=== PATIENT | female | born 1995 ===

== ENCOUNTER 2020-07-15 10:56 | Outpatient (REF) | payer OTHER, SELFPAY ==
[2020-07-15 11:55] LABS: MANUAL DIFF FLAG NO
[2020-07-15 12:11] LABS: Basophils Percent Auto 0.3 % (0-2); Eosinophils Absolute Auto 0.1 X10*3/uL (0.0-0.4); Eosinophils Percent Auto 1.4 % (0-4); Hematocrit 39.8 % (37-47); Imm Gran Abs Auto 0.05 X10*3/uL (0.00-0.03); Imm Gran Pct Auto 0.6 % (0.0-0.4); Lymphocytes Absolute Auto 1.8 X10*3/uL (1.2-4.9); Lymphocytes Percent Auto 22.8 % (20-40); Mean Corpuscular HGB Conc 32.7 g/dl (31.0-35.0); Mean Corpuscular Hemoglobin 30.2 pg (27.0-33.0); Mean Corpuscular Volume 92.6 fL (80-98); Mean Platelet Volume 10.3 fL (9.4-12.3); Monocytes Absolute Auto 0.5 X10*3/uL (0.1-1.2); Monocytes Percent Auto 6.3 % (2-11); Neutrophils Absolute Auto 5.4 X10*3/uL (2.0-8.3); Neutrophils Percent Auto 68.6 % (45-73); Platelet Count 289 X10*3/uL (160-400); White Blood Count 7.9 X10*3/uL (4.8-10.8)
[2020-07-15 12:18] LABS: Alanine Aminotransferase 16 U/L (0-31); Albumin Level 4.4 g/dL (3.5-5.0); Alkaline Phosphatase 75 U/L (39-117); Anion Gap 10 (12-20); Aspartate Amino Transferase 17 U/L (5-31); Bilirubin Total 0.4 mg/dL (0.0-1.0); Blood Urea Nitrogen 9 mg/dL (9-16); Calcium 9.3 mg/dL (8.4-10.2); Carbon Dioxide 28 mmol/L (22-29); Chloride 104 mmol/L (96-108); Cholesterol 121 mg/dL; Estimated Glomerular Filt Rate > 60; Glucose Fasting 82 mg/dL (60-99); HDL Cholesterol 35 mg/dL; LDL Cholesterol Calculated 69 mg/dl; Potassium 4.5 mmol/l (3.3-5.1); Sodium 137 mmol/L (135-145); Total Protein 7.5 g/dL (6.5-8.0); Triglycerides 86 mg/dL
[2020-07-15 12:42] LABS: TSH reflex Free T4 1.51 mIU/mL (0.32-4.0); Vitamin D 25-OH Total 9.5 ng/mL (>30)
[2020-07-15 12:52] LABS: Folate 7.5 ng/mL (> or = 4.0); Vitamin B12 208 pg/mL (200-900)
== END 2020-07-15 10:57 | disposition home or self-care (01) ==
LOC: HO.LAB 10:56
PROVIDERS: PCP Internal Medicine; Visit Provider Internal Medicine
DX: R53.82 Chronic fatigue, unspecified (principal); Z82.49 Family history of ischemic heart disease and other diseases of the circulatory system
CPT/HCPCS: 36415; 80053; 80061; 82306; 82607; 82746; 84443; 85025

== ENCOUNTER 2020-10-26 16:44 | Outpatient (REF) | payer OTHER, SELFPAY | END 2020-10-26 16:45 | disposition home or self-care (01) | LOC: HO.LAB 16:44 | PROVIDERS: Visit Provider Nurse Practitioner Family | DX: R30.0 Dysuria (principal) | CPT/HCPCS: 87086 ==

== ENCOUNTER 2020-10-27 11:49 | Outpatient (REF) | payer OTHER, SELFPAY | END 2020-10-27 11:50 | disposition home or self-care (01) | LOC: HO.LAB 11:49 | PROVIDERS: Visit Provider Nurse Practitioner Family | DX: Z13.89 Encounter for screening for other disorder (principal) ==

== ENCOUNTER 2021-11-07 09:50 | Outpatient (REF) | payer OTHER, SELFPAY ==
[2021-11-07 10:10] LABS: MANUAL DIFF FLAG NO
[2021-11-07 10:45] LABS: Basophils Percent Auto 0.3 % (0-2); Eosinophils Absolute Auto 0.1 X10*3/uL (0.0-0.4); Eosinophils Percent Auto 0.9 % (0-4); Hemoglobin 12.7 g/dl (12.0-16.0); Imm Gran Abs Auto 0.06 X10*3/uL (0.00-0.03); Imm Gran Pct Auto 0.7 % (0.0-0.4); Lymphocytes Absolute Auto 1.8 X10*3/uL (1.2-4.9); Lymphocytes Percent Auto 20.6 % (20-40); Mean Corpuscular HGB Conc 32.6 g/dl (31.0-35.0); Mean Corpuscular Hemoglobin 30.2 pg (27.0-33.0); Mean Corpuscular Volume 92.6 fL (80.0-98.0); Monocytes Absolute Auto 0.6 X10*3/uL (0.1-1.2); Monocytes Percent Auto 6.6 % (2-11); Neutrophils Absolute Auto 6.2 x10*3/uL (2.0-8.3); Neutrophils Percent Auto 70.9 % (45-73); Platelet Count 329 X10*3/uL (160-400); Red Blood Count 4.21 X10*6/uL (4.20-5.50); Red Cell Distribution Width 12.5 % (11.0-16.0); White Blood Count 8.7 X10*3/uL (4.8-10.8)
[2021-11-07 11:04] LABS: Alanine Aminotransferase 15 U/L (0-31); Albumin Level 4.4 g/dL (3.5-5.0); Alkaline Phosphatase 85 U/L (39-117); Anion Gap 11 (12-20); Aspartate Amino Transferase 18 U/L (5-31); Bilirubin Total 0.5 mg/dL (0.0-1.0); Blood Urea Nitrogen 11 mg/dL (9-16); Calcium 9.6 mg/dL (8.4-10.2); Carbon Dioxide 25 mmol/L (22-29); Chloride 107 mmol/L (96-108); Cholesterol 147 mg/dL; Estimated Glomerular Filt Rate > 60; Glucose Fasting 87 mg/dL (60-99); HDL Cholesterol 37 mg/dL; LDL Cholesterol Calculated 96 mg/dl; Potassium 4.6 mmol/L (3.3-5.1); Sodium 138 mmol/L (135-145); Total Protein 8.2 g/dL (6.5-8.0); Triglycerides 71 mg/dL
[2021-11-07 11:26] LABS: Thyroid Stimulating Hormone 2.83 uIU/mL (0.32-4.0)
[2021-11-07 11:41] LABS: Folate 13.7 ng/mL (> or = 4.0); Vitamin B12 279 pg/mL (200-900)
[2021-11-11 13:52] LABS: Vitamin D 25-OH, D2 <4 ng/mL; Vitamin D 25-OH, D3 9 ng/mL; Vitamin D 25-OH, Total 9 ng/mL (30-100)
== END 2021-11-07 09:51 | disposition home or self-care (01) ==
LOC: HO.LAB 09:50
PROVIDERS: PCP Internal Medicine; Visit Provider Internal Medicine
DX: Z00.00 Encounter for general adult medical examination without abnormal findings (principal); E55.9 Vitamin D deficiency, unspecified; D64.9 Anemia, unspecified; E53.8 Deficiency of other specified B group vitamins; F41.9 Anxiety disorder, unspecified
CPT/HCPCS: 36415; 80053; 80061; 82306; 82607; 82746; 84443; 85025

== ENCOUNTER 2022-01-19 01:25 | Emergency (ER) | payer OTHER, SELFPAY ==
--- NOTE | ~2022-01-19 | XR_ITS ---
EXAMINATION: XR CHEST CLINICAL INFORMATION: Cough COMPARISON: None TECHNIQUE: Frontal view of the chest was obtained. FINDINGS: The lungs are well expanded. There is no focal consolidation, edema, or effusion. No pneumothorax. The cardiomediastinal silhouette is within normal limits. No acute osseous abnormality. XR/XR chest 1V IMPRESSION: Clear lungs.
[2022-01-19 01:53] VITALS: BP 124/72; PULSE 103; RESP 18; TEMP 36.9; O2SAT 99; BMI 27.4
[2022-01-19 02:21] LABS: COVID-19 Test Positive (Negative); IDNOW Serial# 16C4AD1C
[2022-01-19 02:31] LABS: Influenza A Negative (Negative); Influenza B2 Negative (Negative)
[2022-01-19 03:36] VITALS: BP 125/81; PULSE 101; RESP 18; TEMP 37; O2SAT 99
--- NOTE | 2022-01-19 03:44 | ED.GENADULT ---
HPI - General Adult General Chief complaint: Dyspnea Stated complaint: difficulty breathing, fever, sore throat Time Seen by Provider: 01/19/22 03:42 Source: patient Mode of arrival: ambulatory Limitations: no limitations History of Present Illness HPI narrative: 26 years old female came in for evaluation of coughing. Patient been having cough, generalized body ache, sneezing, subjective low-grade fever for 2 days. Patient declined exposure to sick contact. No chest pain, no shortness of breath. Related Data Previous Rx's Medication Instructions Recorded hydroxyzine HCl 10 mg tablet 10 mg PO TID PRN #20 tab 12/21/21 guaifenesin 100 mg/5 mL oral liquid 200 mg (10 mL) PO Q4H PRN #473 ml 01/19/22 Allergies Allergy/AdvReac Type Severity Reaction Status Date / Time No Known Allergies Allergy Verified 12/21/21 15:17 Review of Systems Review of Systems: All other systems are reviewed and are negative Constitutional: Reports as per HPI and Reports no additional constitutional complaints Eyes: Reports as per HPI and Reports no additional eye complaints Reports system reviewed and no additional complaints, except as documented Cardiovascular: Reports as per HPI and Reports no additional cardiovascular complaints Respiratory: Reports as per HPI and Reports no additional respiratory complaints Gastrointestinal: Reports as per HPI and Reports no additional gastrointestinal complaints Genitourinary: Reports no additional female genitourinary complaints Musculoskeletal: Reports no additional musculoskeletal complaints Skin/Breast: Reports system reviewed and no additional complaints, except as docu Psychiatric: Reports no additional psychiatric complaints Endocrine: Reports no additional endocrine complaints Hematologic/Lymphatic: Reports no additional hematologic/lymphatic complaints Allergic/Immunologic: Reports no additional allergic/immunologic complaints Reports system reviewed and no additional complaints, except as documented and Reports Abnormal speech present [facility] Past Medical History Medical History Anxiety B12 deficiency Hypovitaminosis D Physical exam Family History Family History Father No problems noted. Mother Hypertension Social History Social History Housing: Apartment Patient Tobacco Use Status: Never used Tobacco e-Cigarette/Vaping Use: Never Used Second Hand Smoke Exposure: No Use of substances other than those prescribed or required for medical reasons: No Advance Directives: No Advance Directives Information Provided: No Current occupational status: employed Physical Exam ED Vital Signs: Vital Signs - 24 hr 01/19/22 01:53 01/19/22 03:36 Temperature 98.4 F 98.6 F Pulse Rate 103 H 101 H Respiratory Rate 18 18 Blood Pressure 124/72 125/81 Pulse Oximetry 99 99 BMI result Body Mass Index 27.4 Vital signs have been reviewed as appeared to be correct. Blood pressure normal. Heart rate normal. Respiration rate normal. Temperature normal. Oxygen saturation normal. Appearance: Alert. Oriented X3. No acute distress. Head: Normal external exam. Normocephalic. Atraumatic. No Mercado signs noted. No raccoon eyes noted Eyes: PERRLA. EOMI. Conjunctiva and sclera normal. Eyelids normal. ENT: TM's Normal. Pharynx normal. Uvula midline. Moist mucous membranes. No trismus noted. No drooling noted. No muffled voice noted. Neck: Normal inspection. Neck supple. FROM. No adenopathy. Thyroid Normal. No meningeal signs. No neck mass noted. CVS: Normal heart rate and rhythm. Heart sound normal. No murmurs noted. Pulses normal throughout. Respiratory: No respiratory distress. Painless inspiration. Breath sounds normal. No wheezes/rales/rhonchi noted. Chest nontender. No accessory muscle usage noted or decreased air movement noted. Abdomen: Soft and nontender. Bowel sounds normal in all 4 quadrants. No distention noted. No organomegaly noted. No visible injury noted. Back: No CVA tenderness. Full range of motion noted. Skin: Skin warm and dry. Normal skin color. Normal skin turgor. No rashes/lesions/lacerations noted. Extremities: No lower extremity edema. Extremities exhibit normal range of motion. Extremities nontender. Neuro: Oriented X 3. Cranial nerve exam: II-XII are grossly intact No motor deficit. No sensory deficit. Reflexes normal. Course Course Course Narrative: Assessment and plan. 26-year-old female came in for his flu-like symptoms patient tested positive for COVID-19 infection. Patient is hemodynamically stable, with stable O2 sat. Medical Decision Making Lab Data Lab results reviewed: Yes I reviewed the patient's lab results. Labs: Lab Results 01/19/22 01/19/22 Range/Units 02:03 02:03 COVID-19 (NENO) Positive A (Negative) COVID-19 Clin Com See Note Influenza Type A (TRISH) Negative (Negative) Influenza Type B (TRISH) Negative (Negative) Influenza A & B Note See Note Imaging Data Chest x-ray: Attestation: I personally reviewed and interpreted this imaging study as follows: Radiologist's impression: No acute pathology. Discharge Plan Discharge Clinical Impression: COVID-19 virus infection Patient Disposition: Home, Self-Care Instructions: Covid-19 Viral Syndrome and Novel Coronavirus (ED) Hey/Ath Additional Instructions: Frequent handwashing, use face mask at all times, keep social distancing, self quarantine at home, take Tylenol or ibuprofen if needed for pain. Prescriptions: New guaifenesin 100 mg/5 mL liquid 200 mg PO Q4H PRN (Reason: cough) Qty: 473 0RF No Action hydroxyzine HCl 10 mg tablet 10 mg PO TID PRN (Reason: anxiety) Qty: 20 0RF Referrals: Elin Bautista MD [Primary Care Provider] - Stand Alone Forms: Work/School Release
[2022-01-19] MEDS: guaiFEN/Codeine SF 200/20/10ML 10 ML LIQUID PO (04:05)
[2022-01-19] MEDS: Acetaminophen 325 MG TABLET 650 MG PO (04:05)
[2022-01-19 04:06] VITALS: BP 112/72; PULSE 106; RESP 16; O2SAT 97
== END 2022-01-19 05:53 | disposition home or self-care (01) ==
PROVIDERS: Emergency Provider Emergency Medicine; PCP Internal Medicine
DX: U07.1 COVID-19 (principal)
CPT/HCPCS: 71045; 87502; 87635; 99283; 99284

== ENCOUNTER 2022-02-06 16:13 | Outpatient (REF) | payer OTHER, SELFPAY | END 2022-02-06 16:14 | disposition home or self-care (01) | LOC: HO.LNP 16:13 | PROVIDERS: Visit Provider Emergency Medicine | DX: J02.9 Acute pharyngitis, unspecified (principal) | CPT/HCPCS: 87071 ==

== ENCOUNTER 2022-02-07 08:12 | Emergency (ER) | payer OTHER, SELFPAY ==
[2022-02-07 08:15] VITALS: BP 120/67; PULSE 90; RESP 18; TEMP 36.6; O2SAT 98; BMI 30.2
[2022-02-07] MEDS: Albuterol Sulfate 90 MCG 8 GM INHALER 2 PUFF INHALE (09:56)
[2022-02-07 09:58] VITALS: PULSE 90; RESP 16; O2SAT 99
[2022-02-07 10:12] LABS: COVID-19 Test Negative (Negative); IDNOW Serial# 08D9AD1C; Strep A Nucleic Acid Negative (Negative)
--- NOTE | 2022-02-07 10:38 | ED.GENADULT ---
HPI - General Adult General Chief complaint: General Medical Stated complaint: Coughing up blood/Bloody nose Time Seen by Provider: 02/07/22 09:12 Source: patient Mode of arrival: ambulatory Limitations: language barrier History of Present Illness HPI narrative: 26-year-old Nepali-speaking female who tested positive for COVID 2 weeks ago presents for continuing cough, intermittent nose bleeds of which she has a history, and continuing cough with congestion. Patient also states she has had a sore throat. Symptoms of sore throat and cough started 3 weeks ago. Patient states when she coughs there are a small amount of blood streaks in her sputum. No blood clots. No chest pain, no shortness of breath, patient has stable vitals. Patient had a nosebleed yesterday and today which was concurrent with the minor amount of blood streak in her sputum. No fevers. Patient states that hurts to swallow but she is able to eat and drink. No sick exposures, no history of asthma. Patient has had no unilateral leg swelling, no recent long trips, no surgery, no trauma Related Data Previous Rx's Medication Instructions Recorded hydroxyzine HCl 10 mg tablet 10 mg PO TID PRN anxiety #20 tabs 12/21/21 guaifenesin 100 mg/5 mL oral liquid 200 mg (10 mL) PO Q4H PRN cough 01/19/22 #473 mL albuterol sulfate 90 mcg/actuation 2 puff inhalation Q4-6H PRN 02/07/22 aerosol inhaler shortness of breath or wheezing #8.5 grams benzonatate 200 mg capsule 200 mg PO TID 5 days #15 caps 02/07/22 dexamethasone 6 mg tablet 6 mg PO DAILY 3 days #3 tabs 02/07/22 Allergies Allergy/AdvReac Type Severity Reaction Status Date / Time No Known Allergies Allergy Verified 02/06/22 12:38 Review of Systems Constitutional: Constitutional: Denies body ache(s), Denies chills, Denies fatigue, Denies fever(s), Denies headache(s), Denies malaise and Denies weakness Eyes: Eyes: Denies diplopia ENT: Denies vertigo, Denies dizziness, Denies otalgia, Denies headache(s), Denies mouth pain, Denies post nasal drip, Denies sinus pain, Denies sinus pressure, Reports sore throat and Denies throat swelling Cardiovascular: Cardiovascular: Denies chest pain, Denies syncope, Denies leg edema, Denies lightheadedness, Denies Loss of Consciousness, Denies palpitations, Denies dyspnea and Denies dyspnea on exertion Respiratory: Respiratory: Reports chest congestion, Reports cough, Denies pain on inspiration, Denies pain with cough, Denies dyspnea, Denies dyspnea on exertion, Denies stridor and Denies wheezing Comments: very small amount of blood-streaked sputum concurrent with nose bleed Gastrointestinal: Gastrointestinal: Denies abdominal pain, Denies hematochezia, Denies constipation, Denies diarrhea and Denies vomiting Musculoskeletal: Musculoskeletal: Reports no additional musculoskeletal complaints Neurologic: Denies confusion, Denies vertigo, Denies dizziness, Denies syncope, Denies headache(s) and Denies weakness Psychiatric: Psychiatric: Denies anxiety, Denies confusion and Denies depression Endocrine: Endocrine: Denies fatigue and Denies palpitations Allergic/Immunologic: Allergic/Immunologic: Denies throat swelling and Denies wheezing PMFSH Past Medical History Medical History Anxiety B12 deficiency Hypovitaminosis D Physical exam Family History Family History Father No problems noted. Mother Hypertension Social History Social History Housing: Apartment Patient Tobacco Use Status: Never used Tobacco e-Cigarette/Vaping Use: Never Used Second Hand Smoke Exposure: No Advance Directives: No Advance Directives Information Provided: No Current occupational status: employed Physical Exam ED Vital Signs: Vital Signs - 24 hr 02/07/22 08:15 02/07/22 09:58 Temperature 97.8 F Pulse Rate 90 90 Respiratory Rate 18 16 Blood Pressure 120/67 Pulse Oximetry 98 Oxygen Delivery Method Room Air BMI result Body Mass Index 30.2 Const General: No confusion Nutritional Appearance: well nourished Orientation/consciousness: No confusion Limitations: no limitations HENMT Other: patient has cryptic tonsils, right tonsil is larger than left, mild erythema, no exudate there is lymphadenopathy anterior cervical on right Head: Yes normal to inspection, Yes normocephalic and Yes atraumatic Ears: hearing grossly normal bilaterally, external ears normal, TM's normal bilaterally and EAC's normal General nose exam: Normal external nose present Face and sinus: Yes normal facial exam and Yes sinuses nontender Mouth: Normal oral and palatal mucosa present Eyes Conjunctivae: conjunctivae normal Pupils: Equal, round and reactive pupils present EOM: EOMs intact bilaterally Neck Neck: Yes full ROM, Yes no lymphadenopathy and Yes supple Resp Effort & Inspection: normal respiratory effort and able to speak in complete sentences Auscultation: no crackles, no rales, no rhonchi, no wheezes and diminished lung sounds Cardio Rate: regular rate Rhythm: regular rhythm Heart sounds: S1 normal heart sound present and S2 normal heart sound present GI Inspection: Yes normal to inspection Palpation (GI): Soft to palpation, nontender, no guarding and not rigid Percussion: Yes normal to percussion Auscultation: normal bowel sounds Skin General skin exam: no rashes or lesions noted Neuro General: No confusion Cranial nerves: Yes Equal, round and reactive pupils present Extrem General: Yes normal to inspection and Yes full ROM Psych Appearance: grossly normal Affect: normal affect Attitude: cooperative Thought process: Normal thought process present Course Course Course Narrative: 26-year-old female with symptoms of sore throat, chest congestion, cough, nose bleeds, and now it is a tiny amount of blood streaked sputum after testing positive for COVID 2 weeks ago. Patient's blood streaked sputum is concurrent when she has her nose bleed. I do not think this is gross hemoptysis, there are no blood clots, patient has stable vitals, I do not think we need to look for pulmonary embolism blood in sputum is not hemoptysis, she has had active nosebleed on exam, patient's lungs are mildly diminished, right tonsil greater than left, mildly erythematous. Patient given inhaler, lungs moving more air after inhaler. COVID negative, flu negative Due to continuing cough and sore throat, will treat with dexamethasone, albuterol inhaler, Tessalon Perles, return precautions given Medical Decision Making Lab Data Labs: Lab Results 02/07/22 02/07/22 Range/Units 09:50 09:50 COVID-19 (NENO) Negative (Negative) COVID-19 Clin Com See Note S. pyogenes GrpA TRISH Negative (Negative) Discharge Plan Discharge Clinical Impression: Viral syndrome, Pharyngitis Patient Disposition: Home, Self-Care Instructions: Pharyngitis (ED), Viral Syndrome (ED) Additional Instructions: Please take the dexamethasone for your sore throat, the benzonatate and albuterol inhaler for your cough. Please use your albuterol inhaler 2 puffs every 4 hours. If you have fevers, urine able to swallow, if your symptoms worsen, please return to emergency room Barrera la dexametasona para el dolor de garganta, el inhalador de benzonatato y albuterol para la tos. Utilice lee inhalador de albuterol 2 inhalaciones cada 4 horas. Si tiene fiebre, puede tragar orina, si nallely s?ntomas empeoran, regrese a la gamaliel de emergencias. Prescriptions: New albuterol sulfate 90 mcg/actuation HFA aerosol inhaler 2 puff inhalation Q4-6H PRN (Reason: shortness of breath or wheezing) Qty: 8.5 0RF benzonatate 200 mg capsule 200 mg PO TID 5 Days Qty: 15 0RF dexamethasone 6 mg tablet 6 mg PO DAILY 3 Days Qty: 3 0RF No Action guaifenesin 100 mg/5 mL liquid 200 mg PO Q4H PRN (Reason: cough) Qty: 473 0RF hydroxyzine HCl 10 mg tablet 10 mg PO TID PRN (Reason: anxiety) Qty: 20 0RF Stand Alone Forms: Work/School Release Print Language: Nepali
[2022-02-07 11:38] VITALS: BP 142/83; PULSE 85; RESP 16; TEMP 36.7; O2SAT 100
== END 2022-02-07 11:41 | disposition home or self-care (01) ==
PROVIDERS: Physician Assistant; Emergency Provider Emergency Medicine; PCP Internal Medicine
DX: B34.9 Viral infection, unspecified (principal); J02.9 Acute pharyngitis, unspecified; Z20.822 Contact with and (suspected) exposure to COVID-19
CPT/HCPCS: 87635; 87651; 94640; 99283; 99284

== ENCOUNTER 2022-02-11 18:13 | Emergency (ER) | payer OTHER, SELFPAY ==
[2022-02-11 18:17] VITALS: BP 131/70; PULSE 89; RESP 18; TEMP 36.3; O2SAT 100; BMI 29.6
[2022-02-11 19:02] LABS: Strep A Nucleic Acid Negative (Negative)
--- NOTE | 2022-02-11 19:31 | ED.GENADULT ---
HPI - General Adult General Chief complaint: General Medical Stated complaint: Throat Pain Time Seen by Provider: 02/11/22 19:11 Source: patient Mode of arrival: ambulatory Limitations: no limitations History of Present Illness HPI narrative: Patient presents emergency department for evaluation of a sore throat. She states that her throat has been so for the past 2 days. Additionally has bilateral ear discomfort. States that she had COVID-19 infection 3 weeks ago where her symptoms have resolved. Denies fevers, chills, headache, nasal congestion, postnasal drip, neck pain, neck stiffness, chest pain, palpitations, shortness of breath, difficulty breathing, nausea, vomiting, abdominal pain. Related Data Previous Rx's Medication Instructions Recorded hydroxyzine HCl 10 mg tablet 10 mg PO TID PRN anxiety #20 tabs 12/21/21 guaifenesin 100 mg/5 mL oral liquid 200 mg (10 mL) PO Q4H PRN cough 01/19/22 #473 mL albuterol sulfate 90 mcg/actuation 2 puff inhalation Q4-6H PRN 02/07/22 aerosol inhaler shortness of breath or wheezing #8.5 grams benzonatate 200 mg capsule 200 mg PO TID 5 days #15 caps 02/07/22 dexamethasone 6 mg tablet 6 mg PO DAILY 3 days #3 tabs 02/07/22 amoxicillin 500 mg capsule 500 mg PO BID 10 days #20 caps 02/11/22 Allergies Allergy/AdvReac Type Severity Reaction Status Date / Time No Known Allergies Allergy Verified 02/06/22 12:38 Review of Systems Review of Systems: Constitutional: No weight loss, fever, chills, weakness or fatigue. ENT: Positive sore throat. Positive ear pain. Skin: No rash or itching. Cardiovascular: No chest pain, chest pressure or chest discomfort. No palpitations Respiratory: No shortness of breath, cough Gastrointestinal: No anorexia, nausea, vomiting or diarrhea. No abdominal pain Genitourinary: No burning micturition. No urinary frequency or incontinence. Musculoskeletal: No muscle pain, back pain, joint pain or stiffness. Psychiatric: No depression or anxiety. Yes all other systems are reviewed and are negative PMFSH Past Medical History Attestation statement: The following information was validated with the patient. Source: old records reviewed Medical History Anxiety B12 deficiency Hypovitaminosis D Physical exam Family History Family History Father No problems noted. Mother Hypertension Social History Social History Housing: Apartment Patient Tobacco Use Status: Never used Tobacco e-Cigarette/Vaping Use: Never Used Second Hand Smoke Exposure: No Advance Directives: No Advance Directives Information Provided: No Current occupational status: employed Physical Exam ED Vital Signs: Vital Signs - 24 hr 02/11/22 18:17 Temperature 97.4 F Pulse Rate 89 Respiratory Rate 18 Blood Pressure 131/70 Pulse Oximetry 100 Oxygen Delivery Method Room Air BMI result Body Mass Index 29.6 Vital signs have been reviewed as normal and appeared to be correct. Blood pressure normal.? Heart rate normal.? Respiration rate normal. Temperature normal.? Oxygen saturation normal. Appearance: Alert.?Oriented to person, place and time. No acute distress.?Normal affect. Head: Normocephalic, atraumatic. No head, sinus or TMJ tenderness.? Eyes: Sclera white, conjunctiva pink. PERRL, 3 mm bilaterally. EOMi.?No Nystagmus. Ears: Bilateral ear canals clear, TM visible with good cone of light, no erythema or exudate Nose: Nasal mucosa pink and moist with midline septum, nares patent bilaterally.? Mouth/ Throat: Oral mucosa pink and moist without lesions. Pharynx without exudate, tonsils symmetric, 3+ bilaterally with exudate, uvula midline, no trismus, no hoarseness, Neck: Normal inspection.? Neck supple.??mild cervical adenopathy? CVS: Heart sounds normal. Normal heart rate and rhythm.? Pulses normal.?? Respiratory: No respiratory distress.? Lung sounds clear to auscultation bilaterally?? Abdomen: Soft and non-tender. ? Skin: Skin warm and dry.? Normal skin color.? ? Extremities: No lower extremity edema.? Neuro: Moves all extremities spontaneously. Sensation intact bilaterally. No motor deficits. Ambulates with normal steady gait. Course Course Course Narrative: Patient is a 26-year-old female with a past medical history of recent COVID-19 infection presenting for evaluation of sore throat and bilateral ear discomfort for the past 3 days. Strep testing was negative, however she does have significant tonsillar swelling with exudate, and cervical lymphadenopathy, discussed plan of care for treat with amoxicillin. Not consistent with peritonsillar or retropharyngeal abscess. Bilateral ears are normal, no acute otitis media or otitis externa. She is otherwise well appearing, hemodynamically stable. Patient received dexamethasone while in the emergency department, discussed additional symptomatic treatment pharyngitis, discussed reasons that she should return back to the emergency department, outpatient follow-up with her primary care provider as needed. All questions were answered and she was discharged home in stable condition.. Medical Decision Making Medical Records Medical records reviewed: Yes I reviewed the patient's medical records. Lab Data Lab results reviewed: Yes I reviewed the patient's lab results. Labs: Lab Results 02/11/22 Range/Units 18:41 S. pyogenes GrpA TRISH Negative (Negative) Discharge Plan Discharge Clinical Impression: Pharyngitis Patient Disposition: Home, Self-Care Instructions: Pharyngitis (ED) Additional Instructions: Please stay well hydrated, use ibuprofen 600 mg every 8 hours as needed for pain in addition to Tylenol. Throat lozenges and Chloraseptic throat spray may alleviate your symptoms as well. You have been given a new prescription for an antibiotic, please complete the entire course. Contact your primary care provider to schedule follow-up visit as needed. Return to the emergency department with any new or worsening symptoms or concerns, such as severe worsening pain, throat closing sensation, difficulty breathing, shortness of breath, chest pain.. Prescriptions: New amoxicillin 500 mg capsule 500 mg PO BID 10 Days Qty: 20 0RF No Action guaifenesin 100 mg/5 mL liquid 200 mg PO Q4H PRN (Reason: cough) Qty: 473 0RF albuterol sulfate 90 mcg/actuation HFA aerosol inhaler 2 puff inhalation Q4-6H PRN (Reason: shortness of breath or wheezing) Qty: 8.5 0RF benzonatate 200 mg capsule 200 mg PO TID 5 Days Qty: 15 0RF dexamethasone 6 mg tablet 6 mg PO DAILY 3 Days Qty: 3 0RF hydroxyzine HCl 10 mg tablet 10 mg PO TID PRN (Reason: anxiety) Qty: 20 0RF Interventions: ED Discharge Assessment Last Done: 02/11/22 19:49 Discharge Date/Time: 02/11/22 19:51
[2022-02-11] MEDS: dexAMETHasone sod phosphate 4 MG/ML VIAL 6 MG PO (19:47)
== END 2022-02-11 19:51 | disposition home or self-care (01) ==
PROVIDERS: Nurse Practitioner Family; Emergency Provider Emergency Medicine
DX: J02.9 Acute pharyngitis, unspecified (principal)
CPT/HCPCS: 36415; 87651; 99282; 99283; J1100

== ENCOUNTER 2022-11-12 15:45 | Outpatient (REF) | payer OTHER, SELFPAY ==
--- NOTE | ~2022-11-12 | XR_ITS ---
EXAMINATION: XR LEFT KNEE XR LUMBOSACRAL SPINE CLINICAL INDICATION: Low back and left knee pain. COMPARISON: None available. TECHNIQUE: 2 views left knee, 3 views lumbar spine. FINDINGS: LEFT KNEE: There is mild narrowing of the medial compartment but no other abnormality is seen. No joint effusion. No chondrocalcinosis. LUMBAR SPINE: Vertebral body heights and disc spaces are well preserved. No significant degenerative changes are seen. No fractures, subluxations. No bony destructive lesions. XR/XR knee LT 2V IMPRESSION: Mild narrowing of the medial compartment of the left knee. Normal lumbar spine.
--- NOTE | ~2022-11-12 | XR_ITS ---
EXAMINATION: XR LEFT KNEE XR LUMBOSACRAL SPINE CLINICAL INDICATION: Low back and left knee pain. COMPARISON: None available. TECHNIQUE: 2 views left knee, 3 views lumbar spine. FINDINGS: LEFT KNEE: There is mild narrowing of the medial compartment but no other abnormality is seen. No joint effusion. No chondrocalcinosis. LUMBAR SPINE: Vertebral body heights and disc spaces are well preserved. No significant degenerative changes are seen. No fractures, subluxations. No bony destructive lesions. XR/XR lumbar spine 2-3V IMPRESSION: Mild narrowing of the medial compartment of the left knee. Normal lumbar spine.
== END 2022-11-12 15:46 | disposition home or self-care (01) ==
LOC: HO.XRAY 15:45
PROVIDERS: PCP Internal Medicine; Visit Provider Internal Medicine
DX: M25.562 Pain in left knee (principal); M54.50 Low back pain, unspecified
CPT/HCPCS: 72100; 73560

== ENCOUNTER 2022-11-14 11:04 | Outpatient (REF) | payer OTHER, SELFPAY ==
[2022-11-14 11:14] LABS: MANUAL DIFF FLAG NO
[2022-11-14 11:55] LABS: Basophils Percent Auto 0.2 % (0-2); Eosinophils Absolute Auto 0.1 X10*3/uL (0.0-0.4); Eosinophils Percent Auto 1.1 % (0-4); Hematocrit 39.9 % (37.0-47.0); Hemoglobin 13.3 g/dl (12.0-16.0); Imm Gran Abs Auto 0.05 X10*3/uL (0.00-0.03); Imm Gran Pct Auto 0.6 % (0.0-0.4); Mean Corpuscular HGB Conc 33.3 g/dl (31.0-35.0); Mean Corpuscular Hemoglobin 29.9 pg (27.0-33.0); Mean Corpuscular Volume 89.7 fL (80.0-98.0); Mean Platelet Volume 10.1 fL (9.4-12.3); Monocytes Absolute Auto 0.5 X10*3/uL (0.1-1.2); Monocytes Percent Auto 6.4 % (2-11); Neutrophils Absolute Auto 5.7 x10*3/uL (2.0-8.3); Neutrophils Percent Auto 67.7 % (45-73); Platelet Count 339 X10*3/uL (160-400); Red Blood Count 4.45 X10*6/uL (4.20-5.50); Red Cell Distribution Width 12.3 % (11.0-16.0); White Blood Count 8.4 X10*3/uL (4.8-10.8)
[2022-11-14 12:30] LABS: Alanine Aminotransferase 20 U/L (0-31); Albumin Level 4.4 g/dL (3.5-5.0); Alkaline Phosphatase 85 U/L (39-117); Anion Gap 14 (12-20); Aspartate Amino Transferase 18 U/L (5-31); Bilirubin Total 0.6 mg/dL (0.0-1.0); Blood Urea Nitrogen 10 mg/dL (9-16); Calcium 9.5 mg/dL (8.4-10.2); Carbon Dioxide 25 mmol/L (22-29); Chloride 106 mmol/L (96-108); Cholesterol 150 mg/dL; Estimated Glomerular Filt Rate > 60; Glucose Fasting 92 mg/dL (60-99); HDL Cholesterol 33 mg/dL; Iron 80 mcg/dL (30-160); LDL Cholesterol Calculated 98 mg/dl; Percent Iron Saturation 26 % (15-50); Potassium 4.5 mmol/L (3.3-5.1); Sodium 140 mmol/L (135-145); Total Iron Binding Capacity 307 mcg/dL (228-428); Total Protein 7.7 g/dL (6.5-8.0); Triglycerides 97 mg/dL; Unsaturated Iron Binding 227 ug/dL
[2022-11-14 12:40] LABS: Folate 12.2 ng/mL (> or = 4.0); Vitamin B12 268 pg/mL (200-900); Vitamin D 25-OH Total 8.1 ng/mL (>30)
== END 2022-11-14 11:05 | disposition home or self-care (01) ==
LOC: HO.LAB 11:04
PROVIDERS: PCP Internal Medicine; Visit Provider Internal Medicine
DX: Z00.00 Encounter for general adult medical examination without abnormal findings (principal); D64.9 Anemia, unspecified; E53.8 Deficiency of other specified B group vitamins; E55.9 Vitamin D deficiency, unspecified
CPT/HCPCS: 36415; 80053; 80061; 82306; 82607; 82746; 83540; 85025

== ENCOUNTER 2022-11-22 15:13 | Outpatient (REF) | payer OTHER, SELFPAY ==
[2022-11-22 18:23] LABS: Thyroid Stimulating Hormone 1.89 uIU/mL (0.32-4.0); Vitamin D 25-OH Total 7.1 ng/mL (>30)
== END 2022-11-22 15:14 | disposition home or self-care (01) ==
LOC: HO.LAB 15:13
PROVIDERS: PCP Internal Medicine; Visit Provider Internal Medicine
DX: L65.9 Nonscarring hair loss, unspecified (principal); E55.9 Vitamin D deficiency, unspecified
CPT/HCPCS: 36415; 82306; 84443

== ENCOUNTER 2023-04-21 15:03 | Emergency (ER) | payer OTHER, SELFPAY ==
--- NOTE | ~2023-04-21 | CT_ITS ---
EXAMINATION: CT ABDOMEN AND PELVIS WITHOUT CONTRAST CLINICAL INFORMATION: Right flank pain. COMPARISON: None available. TECHNIQUE: Multidetector volumetric imaging was performed from the superior aspect of the liver through the pubic symphysis. Sagittal and coronal reformatted images were obtained on the technologist's workstation. This CT examination was performed using dose optimization techniques as appropriate, variously including the following: *Automated exposure control *Adjustment of mA and/or kV according to patient size (this includes techniques or standardized protocols for targeted exams where dose is matched to indication/reason for exam; i.e. extremities or head) *Use of iterative reconstruction technique DLP: 466 mGy-cm FINDINGS: LUNG BASES: The visualized lung bases are unremarkable. LIVER, GALLBLADDER, AND BILIARY TREE: The liver is normal in size, shape, and attenuation. No focal hepatic lesion or biliary ductal dilatation is present. The gallbladder is unremarkable with no evidence of radiopaque gallstones, gallbladder wall thickening, or obvious pericholecystic inflammatory changes. PANCREAS: Unremarkable. SPLEEN: Unremarkable. Tiny punctate calcification likely representing granulomatous disease. ADRENAL GLANDS: Unremarkable. KIDNEYS AND URETERS: The kidneys are normal in size, shape, and attenuation. No hydronephrosis, or hydroureter seen. Note is however made of presence of subtle linear hyperdensities seen bilaterally in the region of the both renal medulla, suspicious for medullary nephrocalcinosis (43:7). No perinephric stranding. BLADDER: Unremarkable. GASTROINTESTINAL TRACT: The small and large bowel are unremarkable. The appendix is unremarkable (36:7).. ABDOMINAL WALL: No significant hernia is appreciated. LYMPH NODES: Normal. VASCULAR: Unremarkable. PELVIC VISCERA: Remarkable for simple appearing right adnexal ovarian cyst measuring 4.3 x 4.1 cm. 2.0 cm simple appearing cyst is noted in the left adnexal region. Given the patient's age, no further follow-up is necessary for both these 2 adnexal cysts. No evidence of any free fluid and/or free air. OSSEOUS STRUCTURES: Mild diffuse osteopenia. CT/CT abdomen pelvis wo IV con IMPRESSION: 1. Subtle linear hyperdensities are seen bilaterally in the region of the renal medulla, suspicious for medullary nephrocalcinosis, of indeterminate etiology. 2. Tiny punctate calcification within the spleen likely represent old granulomatous disease. 3. Bilateral adnexal simple appearing cysts (measures 4.3 cm on the right and 2.0 cm on the left), no further follow-up is necessary given the patient's age. 3. Incidental note is made of mild diffuse osteopenia within the visualized bones. Fleischner guidelines were followed.
[2023-04-21 15:39] VITALS: BP 114/69; PULSE 78; RESP 18; TEMP 37.1; O2SAT 99; BMI 28.9
--- NOTE | 2023-04-21 15:42 | ED.GENADULT ---
HPI - General Adult General Chief complaint: General Medical Stated complaint: back pain x 1 week Time Seen by Provider: 04/21/23 17:52 Source: patient Mode of arrival: ambulatory Limitations: no limitations History of Present Illness HPI narrative: Patient is a 28-year-old female presents emergency department for evaluation of a right flank pain. Onset of pain was approximately 1 week ago that has been progressively worsening. She is also endorsing suprapubic pain. She denies any fevers, chills, chest pain, shortness of breath, difficulty breathing, coughing, nausea, vomiting, dysuria, hematuria, urinary frequency, pelvic pain, abnormal vaginal discharge, possibility of . Denies any history of kidney stones. Related Data Previous Rx's Medication Instructions Recorded cholecalciferol (vitamin D3) 125 125 mcg PO DAILY 90 days #90 caps 11/24/22 mcg (5,000 unit) capsule hydroxyzine HCl 10 mg tablet 10 mg PO TID PRN anxiety #20 tabs 03/20/23 Allergies Allergy/AdvReac Type Severity Reaction Status Date / Time No Known Allergies Allergy Verified 11/14/22 17:25 Review of Systems Review of Systems: Yes all other systems are reviewed and are negative PMFSH Past Medical History Attestation statement: The following information was validated with the patient. Source: old records reviewed Medical History Anxiety B12 deficiency Hypovitaminosis D Physical exam Surgical History No pertinent past surgical history Family History Family History Father No problems noted. Mother Hypertension Social History Social History Housing: Apartment Alcohol intake: current Alcohol intake frequency: a few times a month Alcohol type: other Patient Tobacco Use Status: Never used Tobacco Smoked in Last 30 Days: No e-Cigarette/Vaping Use: Never Used Second Hand Smoke Exposure: No Use of substances other than those prescribed or required for medical reasons: No Advance Directives: No Advance Directives Information Provided: Yes service: No Current occupational status: employed Current occupational exposures/hazards: No Cognitive needs: No Hearing needs: No Vision needs: No Physical Exam ED Vital Signs: Vital Signs - 24 hr 04/21/23 15:39 04/21/23 18:38 04/21/23 20:30 Temperature 98.8 F Pulse Rate 78 70 Respiratory Rate 18 16 14 Blood Pressure 114/69 111/55 L Pulse Oximetry 99 99 Oxygen Delivery Method Room Air Room Air BMI result Body Mass Index 28.9 Appearance: Alert.?Oriented to person, place and time. No acute distress.?Normal affect. Eyes: Pupils equal, round and reactive to light.? ENT: Pharynx normal.?? Neck: Normal inspection.? Neck supple.?? CVS: Heart sounds normal. Normal heart rate and rhythm.? Pulses normal.?? Respiratory: No respiratory distress.? Lung sounds clear to auscultation bilaterally?? Abdomen: Soft and non-tender. Normoactive bowel sounds. Positive right CVA tenderness upon palpation Skin: Skin warm and dry.? Normal skin color.? Extremities: No lower extremity edema.? Neuro: Moves all extremities spontaneously. Sensation intact bilaterally. No focal neuro deficits. Ambulates with normal steady gait. Course Course Course Narrative: RME: 28 yold female presents to the ED for right flank pain and suprapubic pain. patient states no dysuria, hematuria, or fever/chills. labs ordered Reevaluation(s) Reevaluation #1: CBC reveals no leukocytosis, no anemia. CMP is overall unremarkable. Urinalysis without evidence of infection, there is however microscopic hematuria, is negative. CT of the abdomen and pelvis revealing linear hyperdensities bilaterally suspicious for nephrocalcinosis, bilateral adnexal simple cysts. trialed ketorolac for pain with significant improvement. reviewed these findings with patient, discussed outpatient follow-up with her primary care provider within 1-3 days. Discussed worrisome signs and symptoms that would warrant re-evaluation in the emergency department. All questions answered. Stable for discharge. Medications Administered Discontinued Medications Generic Name Dose Route Start Last Admin Trade Name Freq PRN Reason Stop Dose Admin Ketorolac Tromethamine 30 mg 04/21/23 19:02 04/21/23 19:22 Ketorolac Tromethamine 30 Mg/Ml Vial IM 04/21/23 19:03 30 mg ONCE ONE Administration Medical Decision Making Medical Decision Making MDM Narrative: patient is a 28-year-old female presents emergency department for evaluation of flank pain as per HPI. At the time my examination she is overall well-appearing though she does appear mildly uncomfortable upon physical exam, has right CVA tenderness. She is afebrile without tachycardia. Will obtain CBC to evaluate for leukocytosis/ anemia, CMP and lipase to evaluate for abnormal electrolytes /abnormal renal function/ abnormal hepatic/biliary function, CT of the abdomen and pelvis and Urinalysis. Differential Diagnosis Differential Diagnoses: The differential diagnosis associated with the presentation includes ( musculoskeletal pain, nephrolithiasis, obstructive ureteral calculi, hydronephrosis, pyelonephritis, urinary tract infection, ) Admission/Observation Consideration of admission/observation: Escalation of care including admission/observation considered ( I considered admission for flank pain, see course narrative for further detail) Lab Data MDM Lab Attestation statement: I reviewed the patient's lab results. ( see course narrative for further detail) 04/21/23 16:01 04/21/23 16:01 Labs: Lab Results 04/21/23 04/21/23 04/21/23 Range/Units 16:01 16:01 16:01 WBC 9.6 (4.8-10.8) X10*3/uL RBC 4.27 (4.20-5.50) X10*6/uL Hgb 13.2 (12.0-16.0) g/dl Hct 38.4 (37.0-47.0) % MCV 89.9 (80.0-98.0) fL MCH 30.9 (27.0-33.0) pg MCHC 34.4 (31.0-35.0) g/dl RDW 12.2 (11.0-16.0) % Plt Count 304 (160-400) X10*3/uL MPV 9.8 (9.4-12.3) fL Immature Gran % (Auto) 0.5 H (0.0-0.4) % Neut % (Auto) 71.0 (45-73) % Lymph % (Auto) 19.8 L (20-40) % [place] % (Auto) 7.2 (2-11) % Eos % (Auto) 1.3 (0-4) % Baso % (Auto) 0.2 (0-2) % Lymph # (Auto) 1.9 (1.2-4.9) X10*3/uL [place] # (Auto) 0.7 (0.1-1.2) X10*3/uL Eos # (Auto) 0.1 (0.0-0.4) X10*3/uL Baso # (Auto) 0.0 (0.0-0.2) X10*3/uL Abs Immat Gran (auto) 0.05 H (0.00-0.03) X10*3/uL Absolute Neuts (auto) 6.8 (2.0-8.3) x10*3/uL Absolute Nucleated RBC 0.000 (0.0-0.012) X10*3/uL Nucleated RBC % (auto) 0.0 (0.0-0.2) /100WBC Sodium 138 (135-145) mmol/L Potassium 3.8 (3.3-5.1) mmol/L Chloride 107 (96-108) mmol/L Carbon Dioxide 23 (22-29) mmol/L Anion Gap 12 (12-20) BUN 10 (9-16) mg/dL Creatinine 0.73 (0.5-1.4) mg/dL Estim Creat Clear Calc 107.3 Estimated GFR > 60 Random Glucose 91 (60-115) mg/dL Calcium 9.7 (8.4-10.2) mg/dL Total Bilirubin 0.3 (0.0-1.0) mg/dL AST 27 (5-31) U/L ALT 59 H (0-31) U/L Alkaline Phosphatase 83 (39-117) U/L Total Protein 8.0 (6.5-8.0) g/dL Albumin 4.2 (3.5-5.0) g/dL Urine Color Urine Appearance Urine pH (5.0-9.0) Ur Specific [place] (1.005-1.025) Urine Protein (Neg-Trace) mg/dL Urine Glucose (UA) (Negative) mg/dL Urine Ketones (Negative) mg/dL Urine Blood (Negative) Urine Nitrite (Negative) Ur Leukocyte Esterase (Negative) Urine RBC (0-2) /HPF Urine WBC (0-5) /HPF Ur Squamous Epith Cells (0-2) /HPF Urine Bacteria (None Seen) Hyaline Casts (0-2) /LPF Urine Test NEGATIVE (NEGATIVE) 04/21/23 Range/Units 16:02 WBC (4.8-10.8) X10*3/uL RBC (4.20-5.50) X10*6/uL Hgb (12.0-16.0) g/dl Hct (37.0-47.0) % MCV (80.0-98.0) fL MCH (27.0-33.0) pg MCHC (31.0-35.0) g/dl RDW (11.0-16.0) % Plt Count (160-400) X10*3/uL MPV (9.4-12.3) fL Immature Gran % (Auto) (0.0-0.4) % Neut % (Auto) (45-73) % Lymph % (Auto) (20-40) % [place] % (Auto) (2-11) % Eos % (Auto) (0-4) % Baso % (Auto) (0-2) % Lymph # (Auto) (1.2-4.9) X10*3/uL [place] # (Auto) (0.1-1.2) X10*3/uL Eos # (Auto) (0.0-0.4) X10*3/uL Baso # (Auto) (0.0-0.2) X10*3/uL Abs Immat Gran (auto) (0.00-0.03) X10*3/uL Absolute Neuts (auto) (2.0-8.3) x10*3/uL Absolute Nucleated RBC (0.0-0.012) X10*3/uL Nucleated RBC % (auto) (0.0-0.2) /100WBC Sodium (135-145) mmol/L Potassium (3.3-5.1) mmol/L Chloride (96-108) mmol/L Carbon Dioxide (22-29) mmol/L Anion Gap (12-20) BUN (9-16) mg/dL Creatinine (0.5-1.4) mg/dL Estim Creat Clear Calc Estimated GFR Random Glucose (60-115) mg/dL Calcium (8.4-10.2) mg/dL Total Bilirubin (0.0-1.0) mg/dL AST (5-31) U/L ALT (0-31) U/L Alkaline Phosphatase (39-117) U/L Total Protein (6.5-8.0) g/dL Albumin (3.5-5.0) g/dL Urine Color Yellow Urine Appearance Cloudy Urine pH 5.5 (5.0-9.0) Ur Specific [place] 1.025 (1.005-1.025) Urine Protein Negative (Neg-Trace) mg/dL Urine Glucose (UA) Negative (Negative) mg/dL Urine Ketones Trace (Negative) mg/dL Urine Blood Small (1+) H (Negative) Urine Nitrite Negative (Negative) Ur Leukocyte Esterase Trace H (Negative) Urine RBC 3-5 H (0-2) /HPF Urine WBC 0-5 (0-5) /HPF Ur Squamous Epith Cells 6-10 (0-2) /HPF Urine Bacteria Trace (None Seen) Hyaline Casts 0-2 (0-2) /LPF Urine Test (NEGATIVE) Radiology Impression Discussion of test interpretation with radiology: I have reviewed the radiologist's reading. Radiologist Impression: CT/CT abdomen pelvis wo IV con IMPRESSION: ? 1. Subtle linear hyperdensities are seen bilaterally in the region of the renal medulla, suspicious for medullary nephrocalcinosis, of indeterminate etiology. 2. Tiny punctate calcification within the spleen likely represent old granulomatous disease. 3. Bilateral adnexal simple appearing cysts (measures 4.3 cm on the right and 2.0 cm on the left), no further follow-up is necessary given the patient's age. 3. Incidental note is made of mild diffuse osteopenia within the visualized bones. Discharge Plan Discharge Clinical Impression: Acute flank pain, Nephrocalcinosis Patient Disposition: Home, Self-Care Instructions: Flank Pain (ED) Prescriptions: No Action cholecalciferol (vitamin D3) 125 mcg (5,000 unit) capsule 125 mcg PO DAILY 90 Days Qty: 90 3RF hydroxyzine HCl 10 mg tablet 10 mg PO TID PRN (Reason: anxiety) Qty: 20 0RF Referrals: Gregory Kim MD [Physician] - Elin Bautista MD [Primary Care Provider] - Stand Alone Forms: Work/School Release Interventions: ED Discharge Assessment Last Done: 04/21/23 23:07 Discharge Date/Time: 04/21/23 23:10
[2023-04-21 16:06] LABS: MANUAL DIFF FLAG NO
[2023-04-21 16:08] LABS: Basophils Percent Auto 0.2 % (0-2); Eosinophils Absolute Auto 0.1 X10*3/uL (0.0-0.4); Eosinophils Percent Auto 1.3 % (0-4); Hematocrit 38.4 % (37.0-47.0); Hemoglobin 13.2 g/dl (12.0-16.0); Imm Gran Abs Auto 0.05 X10*3/uL (0.00-0.03); Imm Gran Pct Auto 0.5 % (0.0-0.4); Lymphocytes Absolute Auto 1.9 X10*3/uL (1.2-4.9); Lymphocytes Percent Auto 19.8 % (20-40); Mean Corpuscular HGB Conc 34.4 g/dl (31.0-35.0); Mean Corpuscular Hemoglobin 30.9 pg (27.0-33.0); Mean Corpuscular Volume 89.9 fL (80.0-98.0); Mean Platelet Volume 9.8 fL (9.4-12.3); Monocytes Absolute Auto 0.7 X10*3/uL (0.1-1.2); Monocytes Percent Auto 7.2 % (2-11); Neutrophils Absolute Auto 6.8 x10*3/uL (2.0-8.3); Platelet Count 304 X10*3/uL (160-400); Red Blood Count 4.27 X10*6/uL (4.20-5.50); Red Cell Distribution Width 12.2 % (11.0-16.0); White Blood Count 9.6 X10*3/uL (4.8-10.8)
[2023-04-21 16:09] LABS: Appearance Urine Cloudy; Color Urine Yellow; Glucose Urine UA Negative (Negative); Leukocyte Esterase Urine Trace (Negative); Nitrite Urine Negative (Negative); PH 5.5 (5.0-9.0); Specific Gravity - Urine 1.025 (1.005-1.025); UMIC TRIGGER UACC YES; Urine Blood Small (1+) (Negative); Urine Ketones Trace mg/dL (Negative); Urine Protein Negative (Neg-Trace)
[2023-04-21 16:11] LABS: UPreg QC Valid YES; Urine Pregnancy NEGATIVE (NEGATIVE)
[2023-04-21 16:22] LABS: Bacteria Urine Trace (None Seen); Hyaline Casts Urine 0-2 /LPF (0-2); WBC Urine 0-5 /HPF (0-5)
[2023-04-21 16:52] LABS: Alanine Aminotransferase 59 U/L (0-31); Albumin Level 4.2 g/dL (3.5-5.0); Alkaline Phosphatase 83 U/L (39-117); Anion Gap 12 (12-20); Aspartate Amino Transferase 27 U/L (5-31); Bilirubin Total 0.3 mg/dL (0.0-1.0); Blood Urea Nitrogen 10 mg/dL (9-16); Calcium 9.7 mg/dL (8.4-10.2); Carbon Dioxide 23 mmol/L (22-29); Chloride 107 mmol/L (96-108); Creatinine Clr Calc Pharmacy 107.3; Estimated Glomerular Filt Rate > 60; Glucose Random 91 mg/dL (60-115); Potassium 3.8 mmol/L (3.3-5.1); Sodium 138 mmol/L (135-145)
[2023-04-21 18:38] VITALS: BP 111/55; PULSE 70; RESP 16; O2SAT 99
[2023-04-21] MEDS: Ketorolac Tromethamine 30 MG/ML VIAL IM (19:22)
--- NOTE | 2023-04-21 19:25 | PC.NURSE ---
Pt ca&ox4, no signs of distress. Pt denies chest pain or sob. Pt reports right RLQ pain that radiates to right flank. Pt medicated per oct. Plan of care ongoing.
--- NOTE | 2023-04-21 20:29 | PC.NURSE ---
Pt ca&o, reporting 2/10 flank and and abdm pain on right side. Pt requesting ED phone to make an outside call. plan of care ongoing.
[2023-04-21 20:30] VITALS: RESP 14
== END 2023-04-21 23:10 | disposition home or self-care (01) ==
PROVIDERS: Physician Assistant; Emergency Provider Internal Medicine; PCP Internal Medicine
DX: R10.9 Unspecified abdominal pain (principal); E83.59 Other disorders of calcium metabolism; N29 Other disorders of kidney and ureter in diseases classified elsewhere; Z79.899 Other long term (current) drug therapy
CPT/HCPCS: 36415; 74176; 80053; 81001; 81025; 85025; 99284; J1885

== ENCOUNTER 2023-05-29 11:01 | Outpatient (REF) | payer OTHER, SELFPAY | END 2023-05-29 11:02 | disposition home or self-care (01) | LOC: HO.LAB 11:01 | PROVIDERS: PCP Internal Medicine; Visit Provider Urology | DX: N39.0 Urinary tract infection, site not specified (principal); M54.50 Low back pain, unspecified; E83.59 Other disorders of calcium metabolism; N29 Other disorders of kidney and ureter in diseases classified elsewhere; G89.29 Other chronic pain | CPT/HCPCS: 81003; 87086 ==

== ENCOUNTER 2023-05-29 11:01 | Outpatient (AMB) | payer OTHER, SELFPAY ==
--- NOTE | 2023-05-29 11:04 | A.OFFVIS_ITS ---
Intake Intake Visit Reasons: nephrcalcinosis/renal cysts Intake Note: NEW Patient presents today to established treatment for Nephrocalcinosis/Renal: Meds- None Allergies to Antibiotic- No Known Allergies Blood Thinner- None Patients Symptoms: Lower back pain Banquet Houseperson Required: Yes Banquet Houseperson Language: Qatari Accompanied by: Self / Same As Patient Allergies No Known Allergies Allergy (Verified 05/29/23 11:05) HPI HPI Comments History of Present Illness Details Nusrat is a 28-year-old female who presents today to the office to establish as a new patient for an evaluation of nephrcalcinosis 05/29/2023? She presents today for an evaluation of nephrcalcinosis. She complains of back pain. The patient is a Qatari speaking female. Certified rn otolaryngology was present during the visit. I reviewed the CT abdomen/pelvis results from 04/21/2023-- subtle linear hyperdensities are seen bilaterally in the region of the renal medulla, suspicious for medullary nephrocalcinosis, of indeterminate etiology. Reviewed serum Calcium 04/21/2023 was 9.7 She denies UTI symptoms. I discussed with the patient that the medulla nephrcalcinosis may increase the risk of forming kidney stones and kidney infections. I stressed the importance of hydrating well by drinking water up to 2 litres. I discussed that I do not feel that the Xray finding of Medullary Nephrocalcinosis is related to her back pain symptoms. Plan: Will send urine for culture 24-hour urine collection was ordered. [facility] Medical History Physical exam Hypovitaminosis D B12 deficiency Anxiety Surgical History No pertinent past surgical history Family History Father No problems noted. Mother Hypertension Social History Housing: Apartment Alcohol intake: current Alcohol intake frequency: a few times a month Alcohol type: other Patient Tobacco Use Status: Never used Tobacco e-Cigarette/Vaping Use: Never Used Second Hand Smoke Exposure: No service: No Current occupational status: employed Current occupational exposures/hazards: No Cognitive needs: No Hearing needs: No Vision needs: No Review of Systems Const All systems reviewed & are unremarkable except as noted in HPI and below Reports no additional complaints Eyes Reports no additional complaints ENT Reports no additional complaints Card Denies dyspnea Resp Denies cough and Denies dyspnea GI Reports no additional complaints Reports no additional complaints Musc Reports no additional complaints Skin/Breast Denies rash and Denies unusual bruising Neuro Reports no additional complaints Psych Reports no additional complaints Endo Reports no additional complaints Mak/Lymph Reports no additional complaints Aller/Immun Reports no additional complaints Physical Exam Const General: cooperative, healthy appearing and no acute distress Orientation/consciousness: patient oriented x3 HEENT Head: Yes normal to inspection, Yes normocephalic and Yes atraumatic Eyes Conjunctivae: conjunctivae normal Neck Neck: Yes normal visual inspection and Yes trachea midline Chest Chest palpation & inspection: normal inspection of the chest Resp Effort & Inspection: normal respiratory effort Cardio Rate: regular rate GI Inspection: Yes normal to inspection Skin General skin exam: no rashes or lesions noted Neuro General: patient oriented x3 Extrem General: No edema Psych Appearance: grossly normal Results AMB Urinalysis, Automated UA Leukoctes 15 Yevgeniy/uL Last Edit by SHARIF Rodriguez on 05/29/23 11:28 UA Nitrite Negative Last Edit by SHARIF Rodriguez on 05/29/23 11:28 UA Urobilinogen 0.2 mg/dL Last Edit by SHARIF Rodriguez on 05/29/23 11:2 8 UA Protein 0 mg/dL Last Edit by SHARIF Rodriguez on 05/29/23 11:28 UA pH 6.0 Last Edit by SHARIF Rodriguez on 05/29/23 11:28 UA Blood 25 Fritz/uL Last Edit by SHARIF Rodriguez on 05/29/23 11:28 1+ Gale Murray 05/29/23 11:28 UA Specific [place] 1.025 Last Edit by SHARIF Rodriguez on 05/29/23 11: 28 UA Ketone Positive Last Edit by SHARIF Rodriguez on 05/29/23 11:28 5 mg/dL Gale Murray 05/29/23 11:28 UA Bilirubin 0 mg/dL Last Edit by SHARIF Rodriguez on 05/29/23 11:28 UA Glucose 0 mg/dL Last Edit by SHARIF Rodriguez on 05/29/23 11:28 Results Reviewed Results Reviewed: Laboratory Last Values Urine pH (Auto) 6.0 05/29/23 11:27 Specific [place] (Auto) 1.025 05/29/23 11:27 Urine Protein (Auto) 0 mg/dL 05/29/23 11:27 Glucose (UA)(Auto) 0 mg/dL 05/29/23 11:27 Urine Ketones (Auto) Positive 05/29/23 11:27 Urine Blood (Auto) 25 Fritz/uL 05/29/23 11:27 Urine Nitrite (Auto) Negative 05/29/23 11:27 Urine Bilirubin (Auto) 0 mg/dL 05/29/23 11:27 Urine Urobilinogen (Auto) 0.2 mg/dL 05/29/23 11:27 Leukocyte Esterase (Auto) 15 Yevgeniy/uL 05/29/23 11:27 Date of Service: 04/21/23 EXAMINATION: CT ABDOMEN AND PELVIS WITHOUT CONTRAST?? CLINICAL INFORMATION: Right flank pain.?? COMPARISON: None available. FINDINGS: LUNG BASES: The visualized lung bases are unremarkable.?? LIVER, GALLBLADDER, AND BILIARY TREE: The liver is normal in size, shape, and attenuation. No focal hepatic lesion or biliary ductal dilatation is present. The gallbladder is unremarkable with no evidence of radiopaque gallstones, gallbladder wall thickening, or obvious pericholecystic inflammatory changes.?? PANCREAS: Unremarkable.?? SPLEEN: Unremarkable. Tiny punctate calcification likely representing granulomatous disease. ADRENAL GLANDS: Unremarkable.?? KIDNEYS AND URETERS: The kidneys are normal in size, shape, and attenuation. No hydronephrosis, or hydroureter seen. Note is however made of presence of subtle linear hyperdensities seen bilaterally in the region of the both renal medulla, suspicious for medullary nephrocalcinosis (43:7). No perinephric stranding.? ? BLADDER: Unremarkable.?? GASTROINTESTINAL TRACT: The small and large bowel are unremarkable. The appendix is unremarkable (36:7)..?? ABDOMINAL WALL: No significant hernia is appreciated.?? LYMPH NODES: Normal. VASCULAR: Unremarkable. PELVIC VISCERA: Remarkable for simple appearing right adnexal ovarian cyst measuring 4.3 x 4.1 cm. 2.0 cm simple appearing cyst is noted in the left adnexal region. Given the patient's age, no further follow-up is necessary for both these 2 adnexal cysts.? No evidence of any free fluid and/or free air. OSSEOUS STRUCTURES: Mild diffuse osteopenia.?? IMPRESSION: 1. Subtle linear hyperdensities are seen bilaterally in the region of the renal medulla, suspicious for medullary nephrocalcinosis, of indeterminate etiology. 2. Tiny punctate calcification within the spleen likely represent old granulomatous disease. 3. Bilateral adnexal simple appearing cysts (measures 4.3 cm on the right and 2.0 cm on the left), no further follow-up is necessary given the patient's age. 3. Incidental note is made of mild diffuse osteopenia within the visualized bones Assessment & Plan Assessment & Plan (1) Lower back pain: Code(s): M54.50 - Low back pain, unspecified Qualifiers: Chronicity: chronic Back pain laterality: midline Sciatica presence: without sciatica Qualified Code(s): M54.50 - Low back pain, unspecified; G89.29 - Other chronic pain (2) Nephrocalcinosis: Code(s): E83.59 - Other disorders of calcium metabolism; N29 - Other disorders of kidney and ureter in diseases classified elsewhere Plan Will send urine for culture. 24-hour collection was ordered. Orders: Orders AMB Urinalysis Automated Today Z13.9 - Encounter for screening, unspecified Urine Culture Today N39.0 - Urinary tract infection, site not specified Patient Instructions: The patient had an opportunity to ask questions regarding treatment plan. All questions were answered. Imaging, Laboratory studies and physical exam results were discussed and reviewed in detail. No major barriers to understanding were identified. The patient expressed understanding and agreement with the above treatment plan.? ? ? The patient is aware they should contact our office by phone for worsening of their current condition or the appearance of new symptoms. Compliance is encouraged with any medications and followup testing that is ordered.? ? ? It is a privilege to be allowed the opportunity to participate in the urologic care of your patient. If you have any questions or concerns regarding treatment for the above conditions please do not hesitate to contact me. The office telephone contact is [phone].? ? ? This note is constructed in part using voice recognition software. While every effort has been made to ensure accuracy rehabilitation therapy aide errors may have been included.? ? ? Yours sincerely,? ? ? Thanh Manriquez MD? Coding Level of Care Code New Pt Level 3 (42556) Diagnoses Chronic midline low back pain without sciatica M54.50; G89.29 Chronicity: chronic Back pain laterality: midline Sciatica presence: without sciatica Nephrocalcinosis E83.59; N29
== END 2023-05-29 11:49 | disposition home or self-care (01) ==
PROVIDERS: PCP Internal Medicine; Visit Provider Urology
DX: M54.50 Low back pain, unspecified (principal); G89.29 Other chronic pain; E83.59 Other disorders of calcium metabolism; N29 Other disorders of kidney and ureter in diseases classified elsewhere; Z13.9 Encounter for screening, unspecified
CPT/HCPCS: 99203

== ENCOUNTER 2023-08-08 09:20 | Outpatient (AMB) | payer OTHER, SELFPAY ==
[2023-08-08 09:50] VITALS: BP 104/68; PULSE 102; TEMP 36.6; O2SAT 97; BMI 29.3
--- NOTE | 2023-08-08 09:50 | AM.OFFWIN_ITS ---
Intake Vital Signs 08/08/23 09:50 Height 5 ft 2 in Weight 160 lb BMI 29.3 BP 104/68 Blood Pressure Location Rt brachial Position Sitting Pulse 102 H Pulse Source Pulse Oximeter Temp 97.9 F Temp Source Temporal Artery Scan Pulse Oximetry (%) 97 Oxygen Delivery Method Room Air Intake Visit Reasons: EST/sore throat(lobby masked) Intake Note: pt is here for c.o possible sore throat 1x month Patient Tobacco Use Status: Never used Tobacco Allergies No Known Allergies Allergy (Verified 08/08/23 09:50) Do you need a note to return to daycare/school/sports/work: Yes HPI HPI Comments History of Present Illness Details This is a 28-year-old female with a past medical history of anxiety presenting for evaluation of a sore throat this and subjective fevers she has had for the past 3 weeks. Patient has not taken any medication for treatment of her discomfort and called her primary care physician who asked her to come to the clinic to be tested for RSV and COVID. Patient denies having any sick contacts, cough, sore throat or chest pain. [facility] Medical History Physical exam Hypovitaminosis D B12 deficiency Anxiety Surgical History No pertinent past surgical history Family History Father No problems noted. Mother Hypertension Social History Housing: Apartment Alcohol intake: current Alcohol intake frequency: a few times a month Alcohol type: other Patient Tobacco Use Status: Never used Tobacco e-Cigarette/Vaping Use: Never Used Second Hand Smoke Exposure: No service: No Current occupational status: employed Current occupational exposures/hazards: No Cognitive needs: No Hearing needs: No Vision needs: No Review of Systems Const All systems reviewed & are unremarkable except as noted in HPI and below Denies chills, Reports fever(s) (subjective) and Reports lethargy Eyes Reports as per HPI ENT Reports no additional complaints, Reports as per HPI, Reports nasal congestion and Reports sore throat Card Reports as per HPI Resp Reports as per HPI Physical Exam Vital Signs: Last Vital Signs Temp 97.9 F 08/08/23 09:50 Pulse 102 H 08/08/23 09:50 BP 104/68 08/08/23 09:50 Pulse Ox 97 08/08/23 09:50 Oxygen Delivery Method Room Air 08/08/23 09:50 BMI result Body Mass Index 29.3 Patient is afebrile, HR 88bpm on examination. Const General: cooperative, healthy appearing, comfortable and no acute distress; No ill appearing or lethargic Nutritional Appearance: average body habitus Orientation/consciousness: patient oriented x3 and No lethargic Limitations: no limitations HEENT Head: Yes normal to inspection and Yes normocephalic Ears: hearing grossly normal bilaterally, external ears normal, TM's normal bilaterally and EAC's normal General nose exam: Normal external nose present Face and sinus: Yes normal facial exam, No sinus tenderness and No dry mucous membranes Mouth: Normal oral and palatal mucosa present and moist mucous membranes Teeth and gingiva: dentition normal Throat: Yes posterior oropharynx normal (There is no edema, erythema or exudates of the posterior oropharynx) and Yes postnasal drainage Eyes General: appearance normal, both eyes and all related structures Visual Dutta: normal visual dutta by confrontation Eyelids: Yes eyelids normal Conjunctivae: conjunctival abnormal (injected; no exudates) bilateral Pupils: Equal, round and reactive pupils present EOM: EOMs intact bilaterally Resp Effort & Inspection: normal respiratory effort and able to speak in complete sentences Auscultation: clear to auscultation bilaterally Cardio Rate: regular rate Rhythm: regular rhythm Neuro General: patient oriented x3 Cranial nerves: Yes Equal, round and reactive pupils present Psych Appearance: grossly normal Mental Status: mental status grossly normal Insight: Good insight present (Psych) Judgement: Good judgement present (Psych) Results AMB Rapid Strep AMB Rapid Strep Negative Last Edit by Larry Ku CMA on 08/08/23 09 :59 Results Reviewed Results Reviewed: Laboratory Last Values Strep Scn Rapid Clinic Negative 08/08/23 09:59 Negative rapid strep reviewed with patient. Assessment & Plan Assessment & Plan (1) Acute pharyngitis: Code(s): J02.9 - Acute pharyngitis, unspecified Plan acute pharyngitis -- Tylenol or ibuprofen as needed for pharyngitis, myalgias. PCP has ordered SARS panel which is pending at this time. Patient will follow- up with her primary care provider for the results of this testing. Orders: Orders AMB Rapid Strep Screen Today Z13.9 - Encounter for screening, unspecified Coding Level of Care Code Est Pt Level 3 (12281) Diagnoses Acute pharyngitis J02.9 Time Spent (min) 20
== END 2023-08-08 10:19 | disposition home or self-care (01) ==
PROVIDERS: PCP Internal Medicine; Visit Provider Physician Assistant
DX: J02.9 Acute pharyngitis, unspecified (principal)
CPT/HCPCS: 87880; 99213

== ENCOUNTER 2023-08-08 13:52 | Outpatient (REF) | payer OTHER, SELFPAY ==
[2023-08-08 14:38] LABS: Influenza A PCR NEGATIVE (Negative); Influenza B PCR NEGATIVE (Negative); Resp Syncy Virus RNA Qual PCR NEGATIVE (Negative); SARS COV2 PCR INHOUSE NEGATIVE (Negative)
== END 2023-08-08 13:53 | disposition home or self-care (01) ==
LOC: HO.LNP 13:52
PROVIDERS: Visit Provider Internal Medicine
DX: Z11.52 Encounter for screening for COVID-19 (principal); R09.89 Other specified symptoms and signs involving the circulatory and respiratory systems
CPT/HCPCS: 0241U

== ENCOUNTER 2023-12-04 15:26 | Outpatient (AMB) | payer OTHER, SELFPAY ==
[2023-12-04 15:36] VITALS: BP 110/70; PULSE 76; TEMP 36.6; O2SAT 97
--- NOTE | 2023-12-04 15:36 | AM.OFFWIN_ITS ---
Intake Vital Signs 12/04/23 15:36 Height 5 ft 2 in BP 110/70 Blood Pressure Location Lt brachial Position Sitting Pulse 76 Pulse Source Pulse Oximeter Temp 97.8 F Temp Source Oral Pulse Oximetry (%) 97 Oxygen Delivery Method Room Air Intake Visit Reasons: EP Sore throat Intake Note: pt is here for sore throat, difficulty swallowing, patient is looking for std screening and test Patient Tobacco Use Status: Never used Tobacco Allergies No Known Allergies Allergy (Verified 12/04/23 15:37) Do you need a note to return to daycare/school/sports/work: No HPI HPI Comments History of Present Illness Details 28 y/o female patient who presents to [facility] in clinic with c/o URI symptoms. Pt also asking for STI screening. Pt is sexually active with 1 male partner. Pt also asking for test. She does not remember her LMP - currently has an Nexplanon. 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 [facility] Medical History Physical exam Hypovitaminosis D B12 deficiency Anxiety Surgical History No pertinent past surgical history Family History Father No problems noted. Mother Hypertension Social History Housing: Apartment Alcohol intake: current Alcohol intake frequency: a few times a month Alcohol type: other Patient Tobacco Use Status: Never used Tobacco e-Cigarette/Vaping Use: Never Used Second Hand Smoke Exposure: No service: No Current occupational status: employed Current occupational exposures/hazards: No Cognitive needs: No Hearing needs: No Vision needs: No Review of Systems Const All systems reviewed & are unremarkable except as noted in HPI and below Physical Exam Vital Signs: Last Vital Signs Temp 97.8 F 12/04/23 15:36 Pulse 76 12/04/23 15:36 BP 110/70 12/04/23 15:36 Pulse Ox 97 12/04/23 15:36 Oxygen Delivery Method Room Air 12/04/23 15:36 Const General: comfortable and no acute distress Orientation/consciousness: patient oriented x3 HEENT Head: Yes normocephalic Ears: external ears normal and TM abnormal with fluid behind the TM bilateral; not bulging, not with effusion, not erythematous, not perforated and not retracted General nose exam: Normal nasal mucous membranes and turbinates present and No nasal discharge present Face and sinus: Yes sinuses nontender Mouth: moist mucous membranes Throat: Yes posterior oropharynx normal Resp Effort & Inspection: normal respiratory effort, able to speak in complete sentences, no audible wheezes and no cough Auscultation: clear to auscultation bilaterally, no crackles, no rales, no rhonchi and no wheezes Cardio Rate: regular rate Rhythm: regular rhythm Neuro General: patient oriented x3 Results AMB Rapid Strep AMB Rapid Strep Negative Last Edit by Larry Ku CMA on 12/04/23 16 :26 AMB Test Urine AMB Test Urine Negative Last Edit by Larry Ku CMA on 12/04/23 16:26 Results Reviewed Results Reviewed: Laboratory Last Values Tst Clinic Negative 12/04/23 16:25 Strep Scn Rapid Clinic Negative 12/04/23 16:25 Assessment & Plan Assessment & Plan (1) Acute pharyngitis: Code(s): J02.9 - Acute pharyngitis, unspecified Qualifiers: Pharyngitis/tonsillitis etiology: unspecified etiology Qualified Code(s): J02.9 - Acute pharyngitis, unspecified Plan: - OTC cold remedies - Acetaminophen for pain relief - Rest and hydrate well with fluids. (2) Missed period: Code(s): N92.6 - Irregular menstruation, unspecified Plan: - Urine HCG negative - Will Add OCP until she gets new Nexplanon - Advised to use Back up method in the next 7 days. - Start OCP today (3) Encounter for screening for bacterial sexually transmitted disease: Code(s): Z11.3 - Encounter for screening for infections with a predominantly sexual mode of transmission Plan: - Ordered GC/Chlamydia today Orders: Orders SARS-CoV2/FLU/RSV Today J02.9 - Acute pharyngitis, unspecified, R09.89 - Other specified symptoms and signs involving the circulatory and respiratory systems N. gonorr culture reflex susc Today Z11.3 - Encounter for screening for infections with a predominantly sexual mode of transmission Chlamydia Culture Today Z11.3 - Encounter for screening for infections with a predominantly sexual mode of transmission AMB Rapid Strep Screen Today Z13.9 - Encounter for screening, unspecified AMB HCG Urine Test Today Z13.9 - Encounter for screening, unspecified Medications: New amoxicillin 500 mg PO BID 7 days 14 caps 0RF J02.9 - Acute pharyngitis, unspecified norgestimate-ethinyl estradiol 0.25-35 mg-mcg (Sprintec (28)) 1 tab PO DAILY 84 tabs 0RF N92.6 - Irregular menstruation, unspecified Coding Level of Care Code Est Pt Level 3 (97989) Diagnoses Acute pharyngitis, unspecified etiology J02.9 Pharyngitis/tonsillitis etiology: unspecified etiology Missed period N92.6 Encounter for screening for bacterial sexually transmitted disease Z11.3 Time Spent (min) 15
== END 2023-12-04 16:17 | disposition home or self-care (01) ==
PROVIDERS: PCP Internal Medicine; Visit Provider Nurse Practitioner Family
DX: J02.9 Acute pharyngitis, unspecified (principal); N92.6 Irregular menstruation, unspecified; Z11.3 Encounter for screening for infections with a predominantly sexual mode of transmission; Z32.02 Encounter for pregnancy test, result negative
CPT/HCPCS: 81025; 87880; 99213

== ENCOUNTER 2023-12-04 15:53 | Outpatient (REF) | payer OTHER, SELFPAY ==
[2023-12-05 11:38] LABS: Influenza A PCR NEGATIVE (Negative); Influenza B PCR NEGATIVE (Negative); Resp Syncy Virus RNA Qual PCR NEGATIVE (Negative); SARS COV2 PCR INHOUSE NEGATIVE (Negative)
[2023-12-05 14:47] LABS: CT PCR NOT DETECTED (Not Detect.); NG PCR NOT DETECTED (Not Detect.)
== END 2023-12-04 15:54 | disposition home or self-care (01) ==
LOC: HO.LAB 15:53
PROVIDERS: Visit Provider Nurse Practitioner Family
DX: R09.89 Other specified symptoms and signs involving the circulatory and respiratory systems (principal); J02.9 Acute pharyngitis, unspecified; Z11.3 Encounter for screening for infections with a predominantly sexual mode of transmission; Z11.52 Encounter for screening for COVID-19; Z20.828 Contact with and (suspected) exposure to other viral communicable diseases
CPT/HCPCS: 0241U; 0353U

== ENCOUNTER 2023-12-18 13:50 | Outpatient (AMB) | payer OTHER, SELFPAY ==
[2023-12-18 14:14] VITALS: BP 110/70; PULSE 80; TEMP 36.9; O2SAT 99; BMI 28.0
--- NOTE | 2023-12-18 14:14 | AM.OFFWIN_ITS ---
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 Patient Tobacco Use Status: Never used Tobacco Allergies No Known Allergies Allergy (Verified 12/18/23 14:16) Do you need a note to return to daycare/school/sports/work: Yes HPI HPI Comments History of Present Illness Details 28 y/o female patient who presents to [facility] in clinic with c/o Diarrhea, vomiting and nausea x 3 days. Prior to symptoms start, Pt had dinner at [employer]. Denies fevers or chills. [facility] Medical History Physical exam Hypovitaminosis D B12 deficiency Anxiety Surgical History No pertinent past surgical history Family History Father No problems noted. Mother Hypertension Social History Housing: Apartment Alcohol intake: current Alcohol intake frequency: a few times a month Alcohol type: other Patient Tobacco Use Status: Never used Tobacco e-Cigarette/Vaping Use: Never Used Second Hand Smoke Exposure: No service: No Current occupational status: employed Current occupational exposures/hazards: No Cognitive needs: No Hearing needs: No Vision needs: No Review of Systems Const All systems reviewed & are unremarkable except as noted in HPI and below Physical Exam Vital Signs: Last Vital Signs Temp 98.4 F 12/18/23 14:14 Pulse 80 12/18/23 14:14 BP 110/70 12/18/23 14:14 Pulse Ox 99 12/18/23 14:14 Oxygen Delivery Method Room Air 12/18/23 14:14 BMI result Body Mass Index 28.0 Const General: comfortable and no acute distress Nutritional Appearance: thin Orientation/consciousness: patient oriented x3 HEENT Head: Yes normocephalic Ears: external ears normal General nose exam: Normal external nose present Face and sinus: Yes normal facial exam Mouth: moist mucous membranes Throat: Yes posterior oropharynx normal Resp Effort & Inspection: normal respiratory effort and able to speak in complete sentences Auscultation: clear to auscultation bilaterally, no crackles, no rales, no rhonchi and no wheezes Cardio Rate: regular rate Rhythm: regular rhythm GI Palpation (GI): Soft to palpation, not firm, nontender, no guarding, not rigid, No hepatosplenomegaly present, no hernias, no masses and No Ascites present Percussion: Yes normal to percussion Auscultation: normal bowel sounds Rectal Exam - Female: deferred Neuro General: patient oriented x3, gait normal and moves all extremities Psych Speech and movement: Normal speech and movement present Assessment & Plan Assessment & Plan (1) Nausea vomiting and diarrhea: Code(s): R11.2 - Nausea with vomiting, unspecified; R19.7 - Diarrhea, unspecified Plan: - Avoid spicy and oily foods - Hydrate well with plenty of water - Rest - Take medicine as directed. Orders: Orders SARS-CoV2/FLU/RSV Today R11.2 - Nausea with vomiting, unspecified, R19.7 - Diarrhea, unspecified Medications: New metoclopramide HCl (Reglan) 10 mg PO Q6H PRN 30 tabs 0RF nausea and vomiting R11.2 - Nausea with vomiting, unspecified, R19.7 - Diarrhea, unspecified ondansetron 8 mg PO Q8H 14 tabs 0RF Nausea and vomiting R11.2 - Nausea with vomiting, unspecified, R19.7 - Diarrhea, unspecified Coding Level of Care Code Est Pt Level 3 (31268) Diagnoses Nausea vomiting and diarrhea R11.2; R19.7 Time Spent (min) 15
== END 2023-12-18 15:13 | disposition home or self-care (01) ==
PROVIDERS: PCP Internal Medicine; Visit Provider Nurse Practitioner Family
DX: R11.2 Nausea with vomiting, unspecified (principal); R19.7 Diarrhea, unspecified
CPT/HCPCS: 99213

== ENCOUNTER 2023-12-18 14:29 | Outpatient (REF) | payer OTHER, SELFPAY ==
[2023-12-18 17:23] LABS: Influenza A PCR NEGATIVE (Negative); Influenza B PCR NEGATIVE (Negative); Resp Syncy Virus RNA Qual PCR NEGATIVE (Negative); SARS COV2 PCR INHOUSE NEGATIVE (Negative)
== END 2023-12-18 14:30 | disposition home or self-care (01) ==
LOC: HO.LAB 14:29
PROVIDERS: Visit Provider Nurse Practitioner Family
DX: R11.2 Nausea with vomiting, unspecified (principal); R19.7 Diarrhea, unspecified
CPT/HCPCS: 0241U

== ENCOUNTER 2023-12-23 09:51 | Outpatient (AMB) | payer OTHER, SELFPAY ==
[2023-12-23 09:55] VITALS: BP 112/60; PULSE 77; TEMP 36.2; O2SAT 100; BMI 27.8
--- NOTE | 2023-12-23 09:55 | MHC.OFFWIV ---
Intake Vital Signs 12/23/23 09:55 Height 5 ft 2 in Weight 152 lb BMI 27.8 BP 112/60 Blood Pressure Location Lt brachial Position Sitting Pulse 77 Pulse Source Pulse Oximeter Temp 97.2 F Temp Source Temporal Artery Scan Pulse Oximetry (%) 100 Oxygen Delivery Method Room Air Intake Visit Reasons: EP Stomach concerns Intake Note: pt is here today for stomach concerns started 1 week ago Patient Tobacco Use Status: Never used Tobacco Allergies No Known Allergies Allergy (Verified 12/23/23 09:58) Do you need a note to return to daycare/school/sports/work: Yes HPI EP Stomach concerns HPI Details 28 yr old female presents to the office for a sick visit. Patient reports sx of diarrhea for the past week. 3-5 times a day. No cramping symptoms. No fevers or chills. No recent travel. [facility] Medical History Physical exam Hypovitaminosis D B12 deficiency Anxiety Surgical History No pertinent past surgical history Family History Father No problems noted. Mother Hypertension Social History Housing: Apartment Alcohol intake: current Alcohol intake frequency: a few times a month Alcohol type: other Patient Tobacco Use Status: Never used Tobacco e-Cigarette/Vaping Use: Never Used Second Hand Smoke Exposure: No service: No Current occupational status: employed Current occupational exposures/hazards: No Cognitive needs: No Hearing needs: No Vision needs: No Physical Exam Vital Signs: Last Vital Signs Temp 97.2 F 12/23/23 09:55 Pulse 77 12/23/23 09:55 BP 112/60 12/23/23 09:55 Pulse Ox 100 12/23/23 09:55 Oxygen Delivery Method Room Air 12/23/23 09:55 BMI result Body Mass Index 27.8 Const General: cooperative and healthy appearing Nutritional Appearance: well nourished Orientation/consciousness: patient oriented x3 Limitations: no limitations HEENT Head: Yes normal to inspection Eyes General: appearance normal, both eyes and all related structures Neck Neck: Yes normal visual inspection Chest Chest palpation & inspection: normal palpation of entire chest wall Resp Effort & Inspection: normal respiratory effort Neuro General: patient oriented x3 Assessment & Plan Assessment & Plan (1) Diarrhea: Code(s): R19.7 - Diarrhea, unspecified Plan: Empric treatment for five days with cipro. If sx do not improve, to follow up here. Medications: New ciprofloxacin HCl 250 mg PO BID 14 tabs 0RF Coding Level of Care Code Est Pt Level 3 (50052) Diagnoses Diarrhea R19.7
== END 2023-12-23 10:56 | disposition home or self-care (01) ==
PROVIDERS: PCP Internal Medicine; Visit Provider Internal Medicine
DX: R19.7 Diarrhea, unspecified (principal)
CPT/HCPCS: 99213

== ENCOUNTER 2024-01-13 09:08 | Outpatient (AMB) | payer OTHER, SELFPAY ==
[2024-01-13 09:21] VITALS: BP 102/70; BMI 27.6
--- NOTE | 2024-01-13 09:21 | MHC.PC.OV ---
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 Accompanied by: Self / Same As Patient Allergies No Known Allergies Allergy (Verified 01/13/24 09:54) Medication List - Last Reconciled 01/13/24 by Elin Gonzalez MD hydroxyzine HCl 25 mg PO BID PRN 30 days Tobacco use date assessed: 01/13/24 Dental Screening Dental Screen Date: 01/13/24 Did you have a dental visit in the last 12 months?: Yes Did you have a dental problem in the last 6 months where you did not have access to dental care?: No Was dental information given to patient?: Patient has dentist HPI HPI Comments History of Present Illness Details This is a 28-year-old female that comes for her physical exam. Last Pap smear was a year ago at [facility] and was normal. No chest pain or shortness of breath. No fever or cough. No change in bowel or bladder habits. [facility] Medical History Physical exam Hypovitaminosis D B12 deficiency Anxiety Surgical History No pertinent past surgical history Family History Father No problems noted. Mother Hypertension Social History Housing: Apartment Alcohol intake: current Alcohol intake frequency: a few times a month Alcohol type: other Patient Tobacco Use Status: Never used Tobacco e-Cigarette/Vaping Use: Never Used Second Hand Smoke Exposure: No service: No Current occupational status: employed Current occupational exposures/hazards: No Cognitive needs: No Hearing needs: No Vision needs: No Questionnaire PHQ-9 Over the last 2 weeks, how often have you been bothered by any of the following problems? 1. Little interest or pleasure in doing things: not at all 2. Feeling down, depressed, or hopeless: not at all 3. Trouble falling or staying asleep, or sleeping too much: not at all 4. Feeling tired or having little energy: not at all 5. Poor appetite or overeating: not at all 6. Feeling bad about yourself - or that you are a failure or have let yourself or your family down: not at all 7. Trouble concentrating on things, such as reading the newspaper or watching television: not at all 8. Moving or speaking so slowly that other people could have noticed. Or the opposite - being so fidgety or restless that you have been moving around a lot more than usual: not at all 9. Thoughts that you would be better off or of hurting yourself in some way: not at all Total score: 0 Depression Screening Interpretation: Negative Depression Screening Done: Yes 72007 - PHQ-9 Billing: Yes Source: Developed by Drs. Brown Kamara, Vera Clayton, Vin Gonzáles and colleagues, with an educational douglas from [employer]. Thrive Questionnaire Date Thrive assessed: 01/13/24 I am a: Patient What is your living situation today?: I have a steady place to live Within the past 12 months, did the food you bought not last and you didn't have the money to get more?: Never true Within the past 12 months, did you worry whether your food would run out before you got money to buy more?: Never true Do you have trouble paying for medicines?: No Do you have trouble getting transportation to medical appointments?: No Do you have trouble paying your heating and electricity bill?: No Do you have trouble taking care of your child, family member or friend?: No Do you have trouble with day-to-day activities such as bathing, preparing meals, shopping, managing finances, etc.?: No Are you currently unemployed and looking for a job?: No Are you interested in more education?: No Please select the resources that you would like help with: None Currently or been in a relationship where the following occur: no concerns reported THRIVE Score: 0 AUDIT C Alcohol Use Questionnaire (AUDIT-C) 1. How often do you have a drink containing alcohol?: Monthly or less 2. How many drinks containing alcohol do you have on a typical day when you are drinking?: 1 or 2 3. How often do you have six or more drinks on one occasion?: Never Total Score: 1 Score Reviewed/Action Taken: No SOM-7 AMB Questionnaire SOM-7 Date SOM - 7 assessed: 01/13/24 Feeling nervous, anxious, or on edge: 0 = Not at all Not being able to stop or control worryin = Not at all Worrying too much about different things: 0 = Not at all Trouble relaxin = Not at all Being so restless that it is hard to sit still: 0 = Not at all Becoming easily annoyed or irritable: 0 = Not at all Feeling afraid as if something awful might happen: 0 = Not at all Total SOM-7 score (0-4 normal; 5-9 mild; 10-14 moderate; 15-21 severe): 0 Source: Developed by Drs. Brown Kamara, Vera Clayton, Vin Gonzáles and colleagues, with an educational douglas from [employer]. SOM-7 Assessment Billing SOM-7 Assessment Tool: SOM-7 Assessment 80470 Review of Systems Const All systems reviewed & are unremarkable except as noted in HPI and below Eyes Reports no additional complaints, Denies change in vision and Denies other visual disturbances Card Denies chest pain at rest, Denies chest pain with activity, Denies edema, Denies irregular heart rhythm, Denies claudication, Denies dyspnea, Denies dyspnea on exertion, Denies orthopnea, Denies paroxysmal nocturnal dyspnea and Denies slow heart rate Resp Denies cough, Denies dyspnea and Denies dyspnea on exertion GI Denies abdominal pain, Denies change in bowel habits, Denies excessive flatus, Denies nausea and Denies vomiting Denies urinary incontinence, Denies urinary hesitancy and Denies urinary urgency Physical exam (Primary Care) Vital Signs: Last Vital Signs BP 102/70 01/13/24 09:21 BMI result Body Mass Index 27.6 Tobacco/Smoking Status: Tobacco use Status Tobacco use date assessed 01/13/24 01/13/24 09:30 Patient Tobacco Use Status Never used Tobacco 01/13/24 09:22 e-Cigarette/Vaping Use Never Used 01/13/24 09:22 PHQ-9: PHQ-9 Score PHQ-9: Total score 0 01/13/24 09:58 Depression Screening Interpretation: Negative Thrive Assessment: Date of Thrive Assessment Date Thrive assessed 01/13/24 01/13/24 09:30 Currently or been in a relationship where the following occur: no concerns reported Const Orientation/consciousness: patient oriented x3 HENMT Head: Yes normal to inspection, Yes normocephalic and Yes atraumatic Ears: external ears normal Eyes General: appearance normal, both eyes and all related structures Eyelids: Yes eyelids normal Conjunctivae: conjunctivae normal Neck Neck: Yes normal visual inspection and Yes supple Resp Effort & Inspection: normal respiratory effort Auscultation: clear to auscultation bilaterally Cardio Jugular venous distension: no JVD Rate: regular rate Rhythm: regular rhythm Heart sounds: S1 normal heart sound present and S2 normal heart sound present GI Inspection: Yes normal to inspection Palpation (GI): Soft to palpation and nontender Auscultation: normal bowel sounds Skin General skin exam: no rashes or lesions noted Neuro General: patient oriented x3 and no focal motor deficits Extrem General: Yes full ROM Psych Appearance: grossly normal Assessment and Plan Assessment & Plan (1) Annual physical exam: Code(s): Z00.00 - Encounter for general adult medical examination without abnormal findings Plan: Repeating a year. Orders: Orders T Spot TB Today Z11.1 - Encounter for screening for respiratory tuberculosis Vitamin B12 and Folate Today E53.8 - Deficiency of other specified B group vitamins Comprehensive [place]. Panel Fast Today Z00.00 - Encounter for general adult medical examination without abnormal findings Mumps Virus IgG Antibody Today Z23 - Encounter for immunization Hepatitis B Profile Today Z23 - Encounter for immunization Vitamin D 25-OH Total Today E55.9 - Vitamin D deficiency, unspecified Rubella IgG Antibody Today Z23 - Encounter for immunization Rubeola IgG (Measles) Today Z23 - Encounter for immunization Varicella IgG Antibody Today Z23 - Encounter for immunization Medications: New cholecalciferol (vitamin D3) 50 mcg PO DAILY 90 caps 1RF 90 days Refilled hydroxyzine HCl 25 mg PO BID PRN 60 tabs 2RF anxiety 30 days Coding Level of Care Code Est Pt Prev Care 18-39y(75996) Diagnoses Annual physical exam Z00.00 Additional Codes SOM-7 Assessment Billing - SOM-7 Assessment Tool: SOM-7 Assessment 46706 ([id number]) Time Spent (min) 31
== END 2024-01-13 10:02 | disposition home or self-care (01) ==
PROVIDERS: PCP Internal Medicine; Visit Provider Internal Medicine
DX: Z00.00 Encounter for general adult medical examination without abnormal findings (principal)
CPT/HCPCS: 99395

== ENCOUNTER 2024-04-27 10:10 | Outpatient (REF) | payer OTHER, SELFPAY ==
[2024-04-27 11:50] LABS: Vitamin D 25-OH Total 16.6 ng/mL (>30)
[2024-04-27 11:57] LABS: Anion Gap 11 (12-20)
[2024-04-27 12:01] LABS: Alanine Aminotransferase 23 U/L (0-31); Albumin Level 4.2 g/dL (3.5-5.0); Alkaline Phosphatase 63 U/L (39-117); Aspartate Amino Transferase 17 U/L (5-31); Bilirubin Total 0.6 mg/dL (0.0-1.0); Blood Urea Nitrogen 11 mg/dL (9-16); Calcium 9.2 mg/dL (8.4-10.2); Carbon Dioxide 22 mmol/L (22-29); Chloride 109 mmol/L (96-108); Estimated Glomerular Filt Rate > 60; Glucose Fasting 89 mg/dL (60-99); Potassium 3.9 mmol/L (3.3-5.1); Sodium 138 mmol/L (135-145); Total Protein 7.9 g/dL (6.5-8.0)
[2024-04-27 12:02] LABS: Vitamin B12 251 pg/mL (200-900)
[2024-04-28 04:46] LABS: HBS Num1 13.67 mIU/mL (0-7.99); HBc Num1 0.15 S/CO (0.00-0.79); HBsAGNum1 0.26 S/CO (0.00-0.99); Hepatitis B Core Antibody Nonreactive (Nonreactive); Hepatitis B Surface Antigen Negative (Negative); ~Hepatitis B Surface Antibody REACTIVE (Nonreactive)
[2024-04-28 09:44] LABS: Rubella IgG Antibody 2.26 Index
[2024-04-29 22:43] LABS: TS Negative Control Passed; TS Panel A 1; TS Panel B 1; TS Positive Control Passed; TSpotTB Negative (Negative)
== END 2024-04-27 10:11 | disposition home or self-care (01) ==
LOC: HO.LAB 10:10
PROVIDERS: PCP Internal Medicine; Visit Provider Internal Medicine
DX: Z00.00 Encounter for general adult medical examination without abnormal findings (principal); Z11.1 Encounter for screening for respiratory tuberculosis; E55.9 Vitamin D deficiency, unspecified; Z23 Encounter for immunization; E53.8 Deficiency of other specified B group vitamins
CPT/HCPCS: 36415; 80053; 82306; 82607; 82746; 86481; 86704; 86706; 86735; 86762; 86765; 86787; 87340

== ENCOUNTER 2024-06-10 15:10 | Outpatient (REF) | payer OTHER, SELFPAY ==
[2024-06-11 11:10] LABS: Influenza A PCR NEGATIVE (Negative); Influenza B PCR NEGATIVE (Negative); Resp Syncy Virus RNA Qual PCR NEGATIVE (Negative); SARS COV2 PCR INHOUSE NEGATIVE (Negative)
== END 2024-06-10 15:11 | disposition home or self-care (01) ==
LOC: HO.HMGCLNP 15:10
PROVIDERS: PCP Internal Medicine; Visit Provider Registered Nurse
DX: J06.9 Acute upper respiratory infection, unspecified (principal)
CPT/HCPCS: 0241U; 99212

== ENCOUNTER 2024-06-10 15:10 | Outpatient (AMB) | payer OTHER, SELFPAY ==
--- NOTE | 2024-06-10 15:17 | MHC.OFFWIV ---
Intake Vital Signs 06/10/24 15:18 Height 5 ft 2 in Weight 152 lb BMI 27.8 BP 118/70 Blood Pressure Location Rt brachial Position Sitting Pulse 83 Pulse Source Pulse Oximeter Temp 97.8 F Temp Source Oral Pulse Oximetry (%) 98 Oxygen Delivery Method Room Air Intake Visit Reasons: EP body aches, headache, back pain Intake Note: Patient here for body aches, headache and back pain that has been present for about 3 days. Patient Tobacco Use Status: Never used Tobacco Allergies No Known Allergies Allergy (Verified 06/10/24 15:18) Do you need a note to return to daycare/school/sports/work: Yes HPI EP body aches, headache, back pain HPI Details This note is constructed using voice recognition software. While every effort has been made to ensure accuracy, telegraphic typewriter repairer errors may have been included. The patient is a 29 year old female who presents to the clinic today with body aches, sinus congestion, headache, and just generally not feeling well for the past 2 days. She denies fever chills cough, shortness of breath. She reports that she works 7 days a week and is unsure if she has ever worked. She has tried NyQuil which seems to help a little bit but does not completely resolve the symptoms. [facility] Medical History Physical exam Hypovitaminosis D B12 deficiency Anxiety Surgical History No pertinent past surgical history Family History Father No problems noted. Mother Hypertension Social History Housing: Apartment Alcohol intake: current Alcohol intake frequency: a few times a month Alcohol type: other Patient Tobacco Use Status: Never used Tobacco e-Cigarette/Vaping Use: Never Used Second Hand Smoke Exposure: No service: No Current occupational status: employed Current occupational exposures/hazards: No Cognitive needs: No Hearing needs: No Vision needs: No Review of Systems Const All systems reviewed & are unremarkable except as noted in HPI and below Physical Exam Vital Signs: Last Vital Signs Temp 97.8 F 06/10/24 15:18 Pulse 83 06/10/24 15:18 BP 118/70 06/10/24 15:18 Pulse Ox 98 06/10/24 15:18 Oxygen Delivery Method Room Air 06/10/24 15:18 BMI result Body Mass Index 27.8 Const General: cooperative, healthy appearing, comfortable and no acute distress Orientation/consciousness: patient oriented x3 Limitations: no limitations HEENT Head: Yes normal to inspection Ears: hearing grossly normal bilaterally, external ears normal and TM's normal bilaterally General nose exam: Normal external nose present, Normal nares present and No nasal discharge present Face and sinus: Yes normal facial exam and Yes sinuses nontender Mouth: Normal oral and palatal mucosa present and moist mucous membranes Throat: Yes tonsils normal, Yes uvula midline and Yes posterior oropharynx abnormal (Erythema) Eyes General: appearance normal, both eyes and all related structures Neck Neck: Yes normal visual inspection Resp Effort & Inspection: normal respiratory effort, able to speak in complete sentences, Actively coughing, no respiratory distress, not tachypneic, no tripod positioning and no use of accessory muscles Auscultation: clear to auscultation bilaterally Cardio Jugular venous distension: no JVD Rate: regular rate Rhythm: regular rhythm Heart sounds: S1 normal heart sound present, S2 normal heart sound present, no click, no gallops, no murmurs and no rubs Skin General skin exam: no rashes or lesions noted, elasticity normal and turgor normal Neuro General: patient oriented x3 Extrem General: Yes normal to inspection and Yes no clubbing, cyanosis or edema Assessment & Plan Assessment & Plan (1) URI (upper respiratory infection): Code(s): J06.9 - Acute upper respiratory infection, unspecified Qualifiers: URI type: unspecified URI Qualified Code(s): J06.9 - Acute upper respiratory infection, unspecified Plan: Viral swab obtained to rule out Covid based on symptoms. Advised mask wearing while symptomatic and quarantine per current CDC guidelines. Reviewed at home support methods including hydration, humidification, vix vapor rub, sinus rinse. Letter provided to remain out of work tomorrow. Advised follow up with worsening symptoms such as dyspnea at rest, which would require emergent evaluation. Orders: Orders SARS-CoV2/FLU/RSV Today J06.9 - Acute upper respiratory infection, unspecified Coding Level of Care Code Est Pt Level 3 (71156) Diagnoses Upper respiratory tract infection, unspecified type J06.9 URI type: unspecified URI
[2024-06-10 15:18] VITALS: BP 118/70; PULSE 83; TEMP 36.6; O2SAT 98; BMI 27.8
== END 2024-06-10 15:47 | disposition home or self-care (01) ==
PROVIDERS: PCP Internal Medicine; Visit Provider Registered Nurse
DX: J06.9 Acute upper respiratory infection, unspecified (principal)

== ENCOUNTER 2024-06-19 05:58 | Emergency (ER) | payer OTHER, SELFPAY ==
--- NOTE | 2024-06-19 | ECG_ITS ---
Test Reason : CP Blood Pressure : / mmHG Vent. Rate : 091 BPM Atrial Rate : 091 BPM P-R Int : 122 ms QRS Dur : 088 ms QT Int : 360 ms P-R-T Axes : 028 056 030 degrees QTc Int : 442 ms Normal sinus rhythm Normal ECG No previous ECGs available Referred By: Generic ED Physician Electronically Signed By:JAYLEN MACHADO
--- NOTE | ~2024-06-19 | XR_ITS ---
EXAMINATION: XR CHEST CLINICAL INFORMATION: Chest pain. COMPARISON: Chest radiograph 01/19/2022. TECHNIQUE: Frontal view of the chest was obtained. FINDINGS: Normal appearance of the cardiomediastinal silhouette. No consolidation, pleural effusion or pneumothorax. No acute osseous findings. Visualized upper abdomen is within normal limits. EKG leads overlie the chest. XR/XR chest 1V IMPRESSION: No acute cardiopulmonary findings. Electronically signed by: Kim Mancia MD 06/19/2024 08:23 AM EDT
[2024-06-19 06:02] VITALS: PULSE 94; RESP 16; TEMP 37; O2SAT 100; BMI 29.6
[2024-06-19 06:21] LABS: Basophils Percent Auto 0.2 % (0-2); Eosinophils Absolute Auto 0.1 X10*3/uL (0.0-0.4); Eosinophils Percent Auto 0.7 % (0-4); Hematocrit 36.6 % (37.0-47.0); Hemoglobin 12.7 g/dl (12.0-16.0); Imm Gran Abs Auto 0.06 X10*3/uL (0.00-0.03); Imm Gran Pct Auto 0.6 % (0.0-0.4); Lymphocytes Absolute Auto 2.3 X10*3/uL (1.2-4.9); Lymphocytes Percent Auto 23.9 % (20-40); MANUAL DIFF FLAG NO; Mean Corpuscular HGB Conc 34.7 g/dl (31.0-35.0); Mean Corpuscular Hemoglobin 30.7 pg (27.0-33.0); Mean Corpuscular Volume 88.4 fL (80.0-98.0); Mean Platelet Volume 9.3 fL (9.4-12.3); Monocytes Absolute Auto 0.6 X10*3/uL (0.1-1.2); Monocytes Percent Auto 6.3 % (2-11); Neutrophils Absolute Auto 6.4 x10*3/uL (2.0-8.3); Neutrophils Percent Auto 68.3 % (45-73); Platelet Count 325 X10*3/uL (160-400); Red Blood Count 4.14 X10*6/uL (4.20-5.50); Red Cell Distribution Width 12.2 % (11.0-16.0); White Blood Count 9.4 X10*3/uL (4.8-10.8)
[2024-06-19 06:34] LABS: Anion Gap 12 (12-20); Blood Urea Nitrogen 12 mg/dL (9-16); Calcium 9.9 mg/dL (8.4-10.2); Carbon Dioxide 23 mmol/L (22-29); Chloride 108 mmol/L (96-108); Creatinine Clr Calc Pharmacy 104.8; Estimated Glomerular Filt Rate > 60; Glucose Random 103 mg/dL (60-115); Potassium 3.8 mmol/L (3.3-5.1); Sodium 139 mmol/L (135-145)
--- NOTE | 2024-06-19 06:40 | ED_ITS ---
HPI - Chest Pain General Chief Complaint: Chest Pain Stated Complaint: chest pain Time Seen by Provider: 06/19/24 06:40 Source: patient and full time staff interpreter (all interactions with this patient were facilitated with an [facility] spanish medical interpreter) Mode of arrival: ambulatory Limitations: language barrier (all interactions with this patient were facilitated with an [facility] spanish medical interpreter) History of Present Illness ED Provider: Kelsi Polo PA-C HPI narrative: Patient is a 29 year old assigned female at with a history of anxiety and depression presenting to the emergency department today with central chest pain. Patient states that last night she began to have central chest pain that felt sharp and worse with deep breathing. Patient denies any dizziness, lightheadedness, abdominal pain, nausea, vomiting, fever, chills, blurry vision, double vision, loss of vision, difficulty breathing, shortness of breath, back pain, night sweats, pain with urination, increased urinary frequency, increased urinary urgency, blood in her urine or stool, syncope or a near syncopal episode, recent trauma or falls, bowel incontinence, bladder incontinence, or any other complaints at this time. Relieving factors: nothing Exacerbating factors: inspiration Treatment prior to arrival: none Related Data Previous Rx's ?Medication ?Instructions ?Recorded cholecalciferol (vitamin D3) 50 50 mcg PO DAILY 90 days #90 caps 01/13/24 mcg (2,000 unit) capsule hydroxyzine HCl 25 mg tablet 25 mg PO BID PRN anxiety 30 days 04/25/24 #60 tabs ibuprofen 800 mg tablet 800 mg PO Q8H PRN pain 30 days #90 04/25/24 tabs Allergies Allergy/AdvReac Type Severity Reaction Status Date / Time No Known Allergies Allergy Verified 06/19/24 06:04 Review of Systems 2 Constitutional: Constitutional: Reports no additional constitutional complaints, Denies chills, Denies fever(s) and Denies night sweats Eyes: Eyes: Reports no additional eye complaints, Denies blurry vision, Denies change in vision, Denies diplopia, Denies eye discharge, Denies loss of vision and Denies eye pain ENT: Denies dizziness Cardiovascular: Cardiovascular: Reports no additional cardiovascular complaints, Reports chest pain, Denies lightheadedness, Denies Loss of Consciousness and Denies dyspnea Respiratory: Respiratory: Reports no additional respiratory complaints and Denies dyspnea Gastrointestinal: Gastrointestinal: Reports no additional gastrointestinal complaints, Denies abdominal pain, Denies melena, Denies hematochezia, Denies change in bowel habits and Denies change in stool character Genitourinary: Genitourinary: Denies hematuria, Denies urinary frequency, Denies dysuria, Denies urinary incontinence, Denies urinary hesitancy and Denies urinary urgency Musculoskeletal: Musculoskeletal: Reports no additional musculoskeletal complaints, Denies numbness and Denies tingling Neurologic: Denies dizziness, Denies loss of vision, Denies numbness and Denies tingling Psychiatric: Psychiatric: Reports no additional psychiatric complaints Endocrine: Endocrine: Reports no additional endocrine complaints Hematologic/Lymphatic: Hematologic/Lymphatic: Reports no additional hematologic/lymphatic complaints Allergic/Immunologic: Allergic/Immunologic: Reports no additional allergic/immunologic complaints [facility] Past Medical History Attestation statement: The following information was validated with the patient. Source: old records reviewed and nursing notes reviewed Medical History Physical exam Hypovitaminosis D B12 deficiency Anxiety Surgical History No pertinent past surgical history Family History Family History Father No problems noted. Mother Hypertension Social History Social History Housing: Apartment Alcohol intake: current Alcohol intake frequency: a few times a month Alcohol type: other Patient Tobacco Use Status: Never used Tobacco e-Cigarette/Vaping Use: Never Used Second Hand Smoke Exposure: No Advance Directives: No Advance Directives Information Provided: No Do you have a plan to hurt others: No Plan service: No Current occupational status: employed Current occupational exposures/hazards: No Cognitive needs: No Hearing needs: No Vision needs: No Physical Exam 2 Vital Signs: Vital Signs: Last Vital Signs Temp 98.7 F 06/19/24 07:37 Pulse 86 06/19/24 07:37 Resp 18 06/19/24 07:37 BP 114/76 06/19/24 07:37 Pulse Ox 100 06/19/24 07:37 O2 Del Method Room Air 06/19/24 07:37 BMI result Body Mass Index 29.6 Const: General: cooperative, no acute distress, alert and awake Nutritional Appearance: well nourished Orientation/consciousness: patient oriented x3 Limitations: no limitations HEENT: Head: Yes normal to inspection and Yes atraumatic Ears: hearing grossly normal bilaterally and external ears normal General nose exam: Normal external nose present, no nasal discharge noted and no epistaxis Face and sinus: Yes normal facial exam, No abrasion and No laceration Mouth: Normal oral and palatal mucosa present, no drooling and no muffled voice Eyes: General: appearance normal, both eyes and all related structures P eriorbital: periorbital findings normal Eyelids: Yes eyelids normal C onjunctivae: conjunctivae normal Pupils: Equal, round and reactive pupils present EOM: EOMs intact bilaterally Neck: Neck: Yes normal visual inspection, Yes full ROM and Yes no lymphadenopathy Chest: Chest palpation & inspection: normal inspection of the chest Resp: Effort & Inspection: normal respiratory effort and able to speak in complete sentences GI: Inspection: Yes normal to inspection Neuro: General: patient oriented x3 and moves all extremities Cranial nerves: Yes Equal, round and reactive pupils present Cognition (Neuro): n ormal cognition Extrem: General: Yes normal to inspection, Yes full ROM and Yes capillary refill normal Psych: Appearance: grossly normal Mental Status: mental status grossly normal Affect: normal affect Attitude: cooperative Thought process: N ormal thought process present Thought content: Normal thought content present Insight: Good insight present (Psych) Medications Administered Discontinued Medications Generic Name Dose Route Start Last Admin Trade Name Freq PRN Reason Stop Dose Admin Lorazepam 1 mg 06/19/24 06:54 06/19/24 07:36 Lorazepam 1 Mg Tablet PO 06/19/24 06:55 1 mg ONCE ONE Administration Naproxen 500 mg 06/19/24 07:18 06/19/24 07:36 Naproxen 500 Mg Tablet PO 06/19/24 07:19 500 mg ONCE ONE Administration Medical Decision Making Medical Decision Making MDM Narrative: Patient is a 29 year old assigned female at with a history of depression and anxiety presenting to the emergency department today with chest pain. Patient's physical exam was unremarkable. Patient's blood work was unremarkable. Patient's urine showed no acute process. Patient's EKG was unremarkable. Patient's chest x-ray showed no acute process. I explained my physical exam findings as well as all test results to the patient. I answered all questions asked by the patient. Patient received Naproxen and Ativan which, upon re- evaluation, he stated it helped her symptoms some. I stressed the importance of the patient taking her medication as directed (either prescribed or as the over the counter packaging recommends). I stressed the importance of the patient following up with her primary care provider. I stressed the importance of the patient returning to the emergency department immediately if her symptoms were to worsen or if she were to develop any dizziness, shortness of breath, difficulty breathing, chest pain, blurry vision, loss of vision, nausea, vomiting, abdominal pain, fever, chills, back pain, or any other complaints. Patient verbalized agreement and understanding with this treatment plan and discharge. Differential Diagnosis Differential Diagnoses: The differential diagnosis associated with the presentation includes Chest pain Pleurisy Costochondritis STEMI NSTEMI Admission/Observation Consideration of admission/observation: Escalation of care including admission/observation considered Patient would have been admitted to the hospital had her work up had any findings where hospital admission was appropriate and her clinical presentation warranted hospital admission. Lab Data [facility] Lab Attestation statement: I reviewed the patient's lab results. My interpretation of these results are in the [facility] Rationale portion of this note. 06/19/24 06:15 06/19/24 06:15 Labs: Lab Results 06/19/24 06/19/24 06/19/24 Range/Units 06:15 06:32 07:22 WBC 9.4 (4.8-10.8) X10*3/uL RBC 4.14 L (4.20-5.50) X10*6/uL Hgb 12.7 (12.0-16.0) g/dl Hct 36.6 L (37.0-47.0) % MCV 88.4 (80.0-98.0) fL MCH 30.7 (27.0-33.0) pg MCHC 34.7 (31.0-35.0) g/dl RDW 12.2 (11.0-16.0) % Plt Count 325 (160-400) X10*3/uL MPV 9.3 L (9.4-12.3) fL Immature Gran % (Auto) 0.6 H (0.0-0.4) % Neut % (Auto) 68.3 (45-73) % Lymph % (Auto) 23.9 (20-40) % [place]osey % (Auto) 6.3 (2-11) % Eos % (Auto) 0.7 (0-4) % Baso % (Auto) 0.2 (0-2) % Lymph # (Auto) 2.3 (1.2-4.9) X10*3/uL [place] # (Auto) 0.6 (0.1-1.2) X10*3/uL Eos # (Auto) 0.1 (0.0-0.4) X10*3/uL Baso # (Auto) 0.0 (0.0-0.2) X10*3/uL Abs Immat Gran (auto) 0.06 H (0.00-0.03) X10*3/uL Absolute Neuts (auto) 6.4 (2.0-8.3) x10*3/uL Absolute Nucleated RBC 0.000 (0.0-0.012) X10*3/uL Nucleated RBC % (auto) 0.0 (0.0-0.2) /100WBC Sodium 139 (135-145) mmol/L Potassium 3.8 (3.3-5.1) mmol/L Chloride 108 (96-108) mmol/L Carbon Dioxide 23 (22-29) mmol/L Anion Gap 12 (12-20) BUN 12 (9-16) mg/dL Creatinine 0.75 (0.5-1.4) mg/dL Estim Creat Clear Calc 104.8 Estimated GFR > 60 Random Glucose 103 (60-115) mg/dL Calcium 9.9 D (8.4-10.2) mg/dL Total Bilirubin 0.6 (0.0-1.0) mg/dL Direct Bilirubin 0.3 (0.0-0.5) mg/dL AST 16 (5-31) U/L ALT 11 (0-31) U/L Alkaline Phosphatase 67 (39-117) U/L Troponin I High Sens < 2.7 (<3.5-17.0) ng/L Total Protein 7.8 (6.5-8.0) g/dL Albumin 4.4 (3.5-5.0) g/dL Lipase 27 (8-78) U/L Urine Color Yellow Urine Appearance Clear Urine pH 6.0 (5.0-9.0) Ur Specific [place] >= 1.030 H (1.005-1.025) Urine Protein Trace (Neg-Trace) mg/dL Urine Glucose (UA) Negative (Negative) mg/dL Urine Ketones Negative (Negative) mg/dL Urine Blood Small (1+) H (Negative) Urine Nitrite Negative (Negative) Ur Leukocyte Esterase Negative (Negative) Urine RBC 6-10 H (0-2) /HPF Urine WBC 0-5 (0-5) /HPF Ur Squamous Epith Cells 6-10 (0-2) /HPF Urine Bacteria None Seen (None Seen) Hyaline Casts 0-2 (0-2) /LPF Urine Test NEGATIVE (NEGATIVE) Influenza Type A (PCR) NEGATIVE (Negative) Influenza Type B (PCR) NEGATIVE (Negative) RSV RNA Qual (PCR) NEGATIVE (Negative) SARS-CoV-2 RNA (RT-PCR) NEGATIVE (Negative) Independent Interpretation I performed an independent interpretation of an: EKG and Plain X-Ray Interpretation: My interpretation is in agreement with the radiologist's impression of this imaging study. L EXAMINATION: XR CHEST CLINICAL INFORMATION: Chest pain. COMPARISON: Chest radiograph 01/19/2022. TECHNIQUE: Frontal view of the chest was obtained. FINDINGS: Normal appearance of the cardiomediastinal silhouette. No consolidation, pleural effusion or pneumothorax. No acute osseous findings. Visualized upper abdomen is within normal limits. EKG leads overlie the chest. XR/XR chest 1V IMPRESSION: No acute cardiopulmonary findings. Electronically signed by: Kim Mancia MD 06/19/2024 08:23 AM EDT Dictated By: Kim Mancia Signed By: Electronically signed by Kim Mancia 06/19/24 0823 Vent. Rate: 091 BPM Atrial Rate: 091 BPM P-R Int: 122 ms QRS Dur: 088 ms QT Int: 360 ms P-R-T Axes: 028 056 030 degrees QTc Int: 442 ms Normal sinus rhythm Normal ECG No previous ECGs available DD/ 0558 Radiology Impression Discussion of test interpretation with radiology: I have reviewed the radiologist's reading. Discharge Plan Discharge Clinical Impression: Atypical chest pain Patient Disposition: Home, Self-Care Instructions: Chest Pain (DC) Additional Instructions: Follow up with your primary care provider. Return to the emergency department immediately if your symptoms worsen or if you develop any dizziness, shortness of breath, difficulty breathing, chest pain, blurry vision, loss of vision, nausea, vomiting, abdominal pain, fever, chills, back pain, or any other complaints. Salma?seguimiento?con lee m?dico de atenci?n primaria. Acuda inmediatamente al servicio de urgencias si nallely s?ntomas empeoran o si presenta falta de aliento, dificultad para respirar, dolor tor?cico, mareos, aturdimiento, dolor de espalda, dolor abdominal, fiebre, escalofr?os o cualquier otro s?ntoma. Prescriptions: No Action hydroxyzine HCl 25 mg tablet 25 mg PO BID PRN (Reason: anxiety) 30 Days Qty: 60 2RF ibuprofen 800 mg tablet 800 mg PO Q8H PRN (Reason: pain) 30 Days Qty: 90 0RF cholecalciferol (vitamin D3) 50 mcg (2,000 unit) capsule 50 mcg PO DAILY 90 Days Qty: 90 1RF Referrals: Elin Bautista MD [Primary Care Provider] - Stand Alone Forms: Work/School Release Print Language: Georgian
[2024-06-19 06:41] LABS: UPreg QC Valid YES; Urine Pregnancy NEGATIVE (NEGATIVE)
[2024-06-19 06:43] LABS: Troponin-I High Sensitivity < 2.7 ng/L (<3.5-17.0)
[2024-06-19 06:55] LABS: Alanine Aminotransferase 11 U/L (0-31); Albumin Level 4.4 g/dL (3.5-5.0); Alkaline Phosphatase 67 U/L (39-117); Aspartate Amino Transferase 16 U/L (5-31); Bilirubin Direct 0.3 mg/dL (0.0-0.5); Bilirubin Total 0.6 mg/dL (0.0-1.0); Lipase 27 U/L (8-78); Total Protein 7.8 g/dL (6.5-8.0)
[2024-06-19 07:08] LABS: Appearance Urine Clear; Color Urine Yellow; Glucose Urine UA Negative (Negative); Leukocyte Esterase Urine Negative (Negative); Nitrite Urine Negative (Negative); Specific Gravity - Urine >= 1.030 (1.005-1.025); UMIC TRIGGER UACC YES; Urine Blood Small (1+) (Negative); Urine Ketones Negative (Negative); Urine Protein Trace mg/dL (Neg-Trace)
[2024-06-19 07:12] LABS: Bacteria Urine None Seen (None Seen); Hyaline Casts Urine 0-2 /LPF (0-2); WBC Urine 0-5 /HPF (0-5)
[2024-06-19] MEDS: LORazepam 1 MG TABLET PO (07:36)
[2024-06-19] MEDS: NaPROXEN 500 MG TABLET PO (07:36)
[2024-06-19 07:37] VITALS: BP 114/76; PULSE 86; RESP 18; TEMP 37.1; O2SAT 100
--- NOTE | 2024-06-19 07:40 | PC.NURSE ---
pt resting queitly./ skin pwd. unlabored resp. nsr on monitor. states CP is improving w/o intervention in ED. was worse last night.
[2024-06-19 08:13] LABS: Influenza A PCR NEGATIVE (Negative); Influenza B PCR NEGATIVE (Negative); Resp Syncy Virus RNA Qual PCR NEGATIVE (Negative); SARS COV2 PCR INHOUSE NEGATIVE (Negative)
[2024-06-19 09:00] VITALS: BP 112/59; PULSE 88; RESP 18; TEMP 36.8; O2SAT 100
[2024-06-19 09:45] VITALS: BP 112/59; PULSE 88; RESP 18; TEMP 36.8; O2SAT 100
== END 2024-06-19 09:46 | disposition home or self-care (01) ==
PROVIDERS: Physician Assistant Medical; Emergency Provider Emergency Medicine; PCP Internal Medicine
DX: R07.89 Other chest pain (principal); Z03.818 Encounter for observation for suspected exposure to other biological agents ruled out
CPT/HCPCS: 0241U; 36415; 71045; 80048; 80076; 81001; 81003; 81025; 83690; 84484; 85025; 93005; 99283; 99284

== ENCOUNTER → 2024-06-19 05:58 | Outpatient (BNV) | payer OTHER, SELFPAY | PROVIDERS: Emergency Provider Emergency Medicine; PCP Internal Medicine; Visit Provider Internal Medicine | DX: R07.9 Chest pain, unspecified (principal) | CPT/HCPCS: 93010 ==

== ENCOUNTER 2024-06-24 16:48 | Outpatient (AMB) | payer OTHER, SELFPAY ==
--- NOTE | 2024-06-24 16:56 | MHC.PC.OV ---
Vital Signs 06/24/24 16:58 Height 5 ft 2 in Weight 158 lb BMI 28.9 BP 110/62 Blood Pressure Location Lt brachial Position Sitting Intake Visit Reasons: follow up ED Intake Note: patient here [facility] ED follow up Bookkeeper Required: No Accompanied by: Self / Same As Patient Allergies No Known Allergies Allergy (Verified 06/24/24 17:17) Medication List - Last Reconciled 06/24/24 by Elin Gonzalez MD cholecalciferol (vitamin D3) 50 mcg PO DAILY 90 days hydroxyzine HCl 25 mg PO BID PRN 30 days ibuprofen 800 mg PO Q8H PRN 30 days Tobacco use date assessed: 01/13/24 Dental Screening Dental Screen Date: 01/13/24 HPI HPI Comments History of Present Illness Details This is a 29 year old female with mild major depression and anxiety that is complaining of insomnia. I will start her on amitriptyline at bedtime. She went to ER recently due to chest pain secondary to anxiety. EKG, CXR and labs were normal. She also has occasional lumbar pain that happens after work and I will prescribe lidocaine patch prn. 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 [facility] Medical History (Updated 06/24/24 @ 20:26 by Elin Gonzalez MD) Physical exam Hypovitaminosis D B12 deficiency Anxiety Surgical History No pertinent past surgical history Family History Father No problems noted. Mother Hypertension Social History Housing: Apartment Alcohol intake: current Alcohol intake frequency: a few times a month Alcohol type: other Patient Tobacco Use Status: Never used Tobacco e-Cigarette/Vaping Use: Never Used Second Hand Smoke Exposure: No service: No Current occupational status: employed Current occupational exposures/hazards: No Cognitive needs: No Hearing needs: No Vision needs: No Questionnaire Thrive Questionnaire Date Thrive assessed: 01/13/24 SOM-7 AMB Questionnaire SOM-7 Date SOM - 7 assessed: 01/13/24 Source: Developed by Drs. Brown Kamara, Vera B.W. Vin Clayton and colleagues, with an educational douglas from [employer]. Review of Systems Const All systems reviewed & are unremarkable except as noted in HPI and below Eyes Denies change in vision Card Denies chest pain at rest, Denies chest pain with activity, Denies edema, Denies irregular heart rhythm, Denies claudication, Denies dyspnea, Denies dyspnea on exertion, Denies orthopnea, Denies paroxysmal nocturnal dyspnea and Denies slow heart rate Resp Denies cough, Denies dyspnea and Denies dyspnea on exertion GI Denies abdominal pain, Denies change in bowel habits, Denies excessive flatus, Denies nausea and Denies vomiting Denies urinary incontinence, Denies urinary hesitancy and Denies urinary urgency Musc Reports back pain, Denies atrophy, Denies deformity and Denies limited range of motion Skin/Breast Denies bleeding lesions, Denies changing lesions and Denies rash Psych Reports abnormal sleep pattern, Reports anxiety and Reports depression Physical exam (Primary Care) Vital Signs: Last Vital Signs BP 110/62 06/24/24 16:58 BMI result Body Mass Index 28.9 Tobacco/Smoking Status: Tobacco use Status Tobacco use date assessed 01/13/24 06/24/24 16:59 Patient Tobacco Use Status Never used Tobacco 06/24/24 16:59 e-Cigarette/Vaping Use Never Used 06/24/24 16:59 Thrive Assessment: Date of Thrive Assessment Date Thrive assessed 01/13/24 06/24/24 16:59 Resp Effort & Inspection: normal respiratory effort Auscultation: clear to auscultation bilaterally Cardio Jugular venous distension: no JVD Rate: regular rate Rhythm: regular rhythm Heart sounds: S1 normal heart sound present and S2 normal heart sound present Extrem General: Yes full ROM Office Procedures Flu Questionnaire Does the patient have a severe egg allergy?: No Immunizations Fluarix Triv [id number] (PF) 45 mcg (15 mcg x 3)/0.5 mL IM syringe Performing Provider: Elin Gonzalez MD [facility] Documented (not given) by: SHARIF Matos on 06/24/24 17:50 Reason Not Given: Not Given Coding Level of Care Code Est Pt Level 4 (45760) Complex EM visit Add On G2211 Diagnoses Primary insomnia F51.01 Insomnia type: primary Nephrocalcinosis E83.59; N29 Anxiety F41.9 Mild major depression F32.0 Lumbar pain M54.50 Time Spent (min) 22 Assessment & Plan Assessment & Plan (1) Insomnia: Code(s): G47.00 - Insomnia, unspecified Category: Medical Qualifiers: Insomnia type: primary Qualified Code(s): F51.01 - Primary insomnia Plan: Start Amitriptyline. (2) Nephrocalcinosis: Code(s): E83.59 - Other disorders of calcium metabolism; N29 - Other disorders of kidney and ureter in diseases classified elsewhere Category: Medical Plan: Refer to urology. (3) Anxiety: Code(s): F41.9 - Anxiety disorder, unspecified Category: Medical Plan: Continue hydroxyzine prn. (4) Mild major depression: Code(s): F32.0 - Major depressive disorder, single episode, mild Category: Medical Plan: Start amitriptyline. (5) Lumbar pain: Code(s): M54.50 - Low back pain, unspecified Category: Medical Plan: Start lidocaine patch. Orders: Orders Influenza [id number] Immunization Today Z23 - Encounter for immunization Referrals Urology Referral E83.59 - Other disorders of calcium metabolism, N29 - Other disorders of kidney and ureter in diseases classified elsewhere Medications: New amitriptyline 10 mg PO BEDTIME 90 days 90 tabs 1RF G47.00 - Insomnia, unspecified lidocaine 4% (Aspercreme (lidocaine)) 1 patch topical DAILY 30 days PRN 10 ea 0RF pain
[2024-06-24 16:58] VITALS: BP 110/62; BMI 28.9
== END 2024-06-24 17:28 | disposition home or self-care (01) ==
PROVIDERS: PCP Internal Medicine; Visit Provider Internal Medicine
DX: E83.59 Other disorders of calcium metabolism (principal); F51.01 Primary insomnia; F32.0 Major depressive disorder, single episode, mild; N29 Other disorders of kidney and ureter in diseases classified elsewhere; F41.9 Anxiety disorder, unspecified; M54.50 Low back pain, unspecified

== ENCOUNTER → 2024-06-24 16:48 | Outpatient (BNVA) | payer OTHER, SELFPAY | PROVIDERS: PCP Internal Medicine; Visit Provider Internal Medicine | DX: F51.01 Primary insomnia (principal); E83.59 Other disorders of calcium metabolism; N29 Other disorders of kidney and ureter in diseases classified elsewhere; F41.9 Anxiety disorder, unspecified; F32.0 Major depressive disorder, single episode, mild; M54.50 Low back pain, unspecified; Z79.899 Other long term (current) drug therapy | CPT/HCPCS: 90471; 99212 ==

== ENCOUNTER 2024-08-31 13:27 | Outpatient (AMB) | payer OTHER, SELFPAY ==
--- NOTE | 2024-08-31 14:00 | MHC.OFFVIS ---
Intake Visit Reasons: medullary nephrocalcinosis Intake Note: Patient is Present for Follow Up Nephrocalcinosis Urology Medication: None Antibiotic Allergies: None Blood Thinners:None Patient states that she has been having pain back. Patient has had no recent Imaging and no recent [facility] report Medical Transcription Editor Required: Yes Medical Transcription Editor Language: Family Resource Specialist Name: Jose Alberto [id number] Information Interpreted: non-clinical & clinical Accompanied by: Self / Same As Patient Allergies No Known Allergies Allergy (Verified 08/31/24 14:14) Medication List - Last Reconciled 08/31/24 by Thanh Manriquez MD amitriptyline 10 mg PO BEDTIME 90 days cholecalciferol (vitamin D3) 50 mcg PO DAILY 90 days hydroxyzine HCl 25 mg PO BID PRN 30 days ibuprofen 800 mg PO Q8H PRN 30 days lidocaine 4% (Aspercreme (lidocaine)) 1 patch topical DAILY PRN 30 days HPI Comments Details: 08/31/24--Nusrat presents today for FU nephrcalcinosis. She complains of back pain. The patient is a Moroccan speaking female. Certified park interpreter was present during the visit. Last visit 08/24/2023-discussed at that time CT abdomen/pelvis results from 04/21/2023-- subtle linear hyperdensities are seen bilaterally in the region of the renal medulla, suspicious for medullary nephrocalcinosis. I have discussed that there is risk for increasing stone burden and completing the 24 hour urine would be helpful in counseling. The patient has the kit at home and states she will complete it. Will reimage kidney. Review of chart: 05/29/2023?She presents today for an evaluation of nephrcalcinosis. She complains of back pain. The patient is a Moroccan speaking female. Certified park interpreter was present during the visit. I reviewed the CT abdomen/pelvis results from 04/21/2023-- subtle linear hyperdensities are seen bilaterally in the region of the renal medulla, suspicious for medullary nephrocalcinosis, of indeterminate etiology. Reviewed serum Calcium 04/21/2023 was 9.7 She denies UTI symptoms. I discussed with the patient that the medulla nephrcalcinosis may increase the risk of forming kidney stones and kidney infections. I stressed the importance of hydrating well by drinking water up to 2 litres. I discussed that I do not feel that the Xray finding of Medullary Nephrocalcinosis is related to her back pain symptoms. Will send urine for culture. 24-hour urine collection was ordered. [facility] Medical History Physical exam Hypovitaminosis D B12 deficiency Anxiety Surgical History No pertinent past surgical history Family History Father No problems noted. Mother Hypertension Social History Housing: Apartment Alcohol intake: current Alcohol intake frequency: a few times a month Alcohol type: other Patient Tobacco Use Status: Never used Tobacco e-Cigarette/Vaping Use: Never Used Second Hand Smoke Exposure: No service: No Current occupational status: employed Current occupational exposures/hazards: No Cognitive needs: No Hearing needs: No Vision needs: No Review of Systems Const All systems reviewed & are unremarkable except as noted in HPI and below Reports no additional complaints Eyes Reports no additional complaints ENT Reports no additional complaints Card Reports no additional complaints Resp Reports no additional complaints GI Reports no additional complaints Reports as per HPI Musc Reports no additional complaints Skin/Breast Reports system reviewed and no additional complaints, except as documented Neuro Reports no additional complaints Psych Reports no additional complaints Endo Reports no additional complaints Mak/Lymph Reports no additional complaints Aller/Immun Reports no additional complaints Results AMB Urinalysis, Automated UA Leukoctes 0 Yevgeniy/uL Last Edit by SHARIF Nevarez on 08/31/24 14:20 UA Nitrite Negative Last Edit by CHRISTIANO NevarezA on 08/31/24 14:20 UA Urobilinogen 0.2 mg/dL Last Edit by SHARIF Nevarez on 08/31/24 14:20 UA Protein 15 mg/dL Last Edit by CHRISTIANO NevarezA on 08/31/24 14:20 UA pH 6.0 Last Edit by CHRISTIANO NevarezA on 08/31/24 14:20 UA Blood 80 Fritz/uL Last Edit by SHARIF Nevarez on 08/31/24 14:20 UA Specific [place] 1.020 Last Edit by Esmer Turner, RMA on 08/31/24 14:20 UA Ketone Negative Last Edit by Esmer Turner, RMA on 08/31/24 14:20 UA Bilirubin 0 mg/dL Last Edit by Esmer Turner, RMA on 08/31/24 14:20 UA Glucose 0 mg/dL Last Edit by Esmer Turner, RMA on 08/31/24 14:20 Results Reviewed Results Reviewed: Laboratory Last Values Urine pH (Auto) 6.0 08/31/24 14:14 Specific [place] (Auto) 1.020 08/31/24 14:14 Urine Protein (Auto) 15 mg/dL 08/31/24 14:14 Glucose (UA)(Auto) 0 mg/dL 08/31/24 14:14 Urine Ketones (Auto) Negative 08/31/24 14:14 Urine Blood (Auto) 80 Fritz/uL 08/31/24 14:14 Urine Nitrite (Auto) Negative 08/31/24 14:14 Urine Bilirubin (Auto) 0 mg/dL 08/31/24 14:14 Urine Urobilinogen (Auto) 0.2 mg/dL 08/31/24 14:14 Leukocyte Esterase (Auto) 0 Yevgeniy/uL 08/31/24 14:14 Assessment & Plan Assessment & Plan (1) Nephrocalcinosis: Code(s): E83.59 - Other disorders of calcium metabolism; N29 - Other disorders of kidney and ureter in diseases classified elsewhere Category: Medical (2) Lumbar pain: Code(s): M54.50 - Low back pain, unspecified Category: Medical Plan [address] stone protocol. Orders: Orders AMB Urinalysis Automated Today Z13.9 - Encounter for screening, unspecified CT abdomen pelvis wo IV con Today E83.59 - Other disorders of calcium metabolism, M54.50 - Low back pain, unspecified, N29 - Other disorders of kidney and ureter in diseases classified elsewhere Patient Instructions: The patient had an opportunity to ask questions regarding treatment plan. The patient expressed understanding and agreement with the above treatment plan. The patient is aware they should contact our office by phone for worsening of their current condition or the appearance of new symptoms. Compliance is encouraged with any medications and followup testing that is ordered. It is a privilege to be allowed the opportunity to participate in the urologic care of your patient. If you have any questions or concerns regarding treatment for the above conditions please do not hesitate to contact me. The office telephone contact is [phone]. This note is constructed in part using voice recognition software. While every effort has been made to ensure accuracy senior medical transcriptionist errors may have been included. Yours sincerely, Thanh Manriquez MD Coding Level of Care Code Est Pt Level 4 (63113) Diagnoses Nephrocalcinosis E83.59; N29 Lumbar pain M54.50
== END 2024-08-31 14:48 | disposition home or self-care (01) ==
PROVIDERS: PCP Internal Medicine; Visit Provider Urology
DX: E83.59 Other disorders of calcium metabolism (principal); N29 Other disorders of kidney and ureter in diseases classified elsewhere; M54.50 Low back pain, unspecified; Z13.9 Encounter for screening, unspecified
CPT/HCPCS: 99214

== ENCOUNTER → 2024-08-31 13:27 | Outpatient (BNVA) | payer OTHER, SELFPAY | PROVIDERS: PCP Internal Medicine; Visit Provider Urology | DX: E83.59 Other disorders of calcium metabolism (principal); N29 Other disorders of kidney and ureter in diseases classified elsewhere; M54.50 Low back pain, unspecified | CPT/HCPCS: 81003; 99212 ==

== ENCOUNTER 2024-10-21 06:14 | Emergency (ER) | payer OTHER, SELFPAY ==
[2024-10-21 06:26] VITALS: BP 136/77; PULSE 111; RESP 18; TEMP 36.8; O2SAT 100; BMI 30.8
--- OUTSIDE RECORDS SUMMARY | 2024-10-21 06:33 | XMS_ITS | Continuity of Care Document ---
Author Organization [facility] Address [address], [address] [place] [address] Phone Care Team Providers Care Document Scanner Name Role Phone Tish Alonso MD Unavailable [...] Location Reason(s) For Visit Diagnoses Date Provider [facility], [address], [address], [place], [id number], [place] tel:[phone] [place] Office absent menses (chief complaint) No Information 2012 Jose Winston. [address], [address], [place], [id number], [place]. tel:[phone] Family History Family Member Type Diagnosis Age At Onset No Information Payers Payer name Insurance type Covered libertarian ID Authoriza tion(s) No Information Social History [...]
[2024-10-21 07:26] LABS: Influenza A PCR POSITIVE (Negative); Influenza B PCR NEGATIVE (Negative); Resp Syncy Virus RNA Qual PCR NEGATIVE (Negative); SARS COV2 PCR INHOUSE NEGATIVE (Negative)
[2024-10-21 08:40] LABS: IDNOW Serial# 58CA691E; Strep A Nucleic Acid Negative (Negative)
--- NOTE | 2024-10-21 09:31 | ED.GENADULT ---
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 No sputum production. Reports taking Tylenol EDUCATIONAL TECHNOLOGY COORDINATOR. No known sick contacts. No recent travel. She did not get her influenza vaccine this year. vaccinations otherwise UTD. Related Data Previous Rx's ?Medication ?Instructions ?Recorded cholecalciferol (vitamin D3) 50 50 mcg PO DAILY 90 days #90 caps 01/13/24 mcg (2,000 unit) capsule hydroxyzine HCl 25 mg tablet 25 mg PO BID PRN anxiety 30 days 04/25/24 #60 tabs amitriptyline 10 mg tablet 10 mg PO BEDTIME 90 days #90 tabs 06/24/24 lidocaine 4 % topical patch 1 patch topical DAILY PRN pain 30 06/24/24 (Aspercreme (lidocaine)) days #10 ea ibuprofen 800 mg tablet 800 mg PO Q8H PRN pain 30 days #90 07/22/24 tabs benzocaine 15 mg-menthol 2.6 mg 1 fredis mucous membrane Q2-4H PRN 10/21/24 lozenges (Cepacol Sore Throat sore throat #16 ea (benzocaine-menthol)) benzonatate 100 mg capsule 100 mg PO BID PRN cough #20 caps 10/21/24 Allergies Allergy/AdvReac Type Severity Reaction Status Date / Time No Known Allergies Allergy Verified 10/21/24 06:28 Review of Systems Review of Systems: Constitutional: No fever, chills, fatigue, night sweats, weight changes ENT/Mouth: No hearing loss, nasal congestion, sinus pain, rhinorrhea, +sore throat, +ear pain Eyes: No eye pain, swelling, redness, vision changes, discharge Cardio: No chest pain, palpitations, JUAN, orthopnea, peripheral edema Pulm: No SOB, sputum, wheezing, dyspnea, hemoptysis, +cough GI: No nausea, vomiting, hematemesis, abdominal pain, diarrhea, constipation, hematochezia, melena : No irregular bleeding, dysuria, frequency, urgency, hesitancy, hematuria, flank pain, urinary flow changes, urinary incontinence or retention MSK: No back pain, neck pain, joint pain, myalgias Skin: No lesions, rashes Neuro: No weakness, numbness, paresthesias, LOC, dizziness, headache Psych: No anxiety/panic, depression, SI/HI, AH/VH All other systems reviewed and are negative. [facility] Past Medical History Attestation statement: The following information was validated with the patient. Source: old records reviewed and nursing notes reviewed Medical History Physical exam Hypovitaminosis D B12 deficiency Anxiety Surgical History No pertinent past surgical history Family History Family History Father No problems noted. Mother Hypertension Social History Social History Housing: Apartment Alcohol intake: current Alcohol intake frequency: a few times a month Alcohol type: other Patient Tobacco Use Status: Never used Tobacco e-Cigarette/Vaping Use: Never Used Second Hand Smoke Exposure: No Advance Directives: No Advance Directives Information Provided: Yes Do you have a plan to hurt others: No Plan service: No Current occupational status: employed Current occupational exposures/hazards: No Cognitive needs: No Hearing needs: No Vision needs: No Physical Exam ED Vital Signs: Vital Signs - 24 hr 10/21/24 06:26 10/21/24 09:48 Temperature 98.2 F 98.2 F Pulse Rate 111 H 111 H Respiratory Rate 18 18 Blood Pressure 136/77 136/77 Pulse Oximetry 100 100 Oxygen Delivery Method Room Air Room Air BMI result Body Mass Index 30.8 tachycardic to 111. afebrile. not hypoxic. General: Well appearing, in no acute distress. Skin: Warm, dry, intact. No rashes or lesions. Head: Normocephalic, atraumatic. EENT: Hearing is intact b/l. Conjunctiva clear. PERRLA. EOM intact. Moist mucous membranes.?Posterior oropharynx mildly erythematous. No edema. No peritonsillar masses. No tonsillar exudates. Uvula midline. Controlling secretions and speaking complete sentences. Bilateral EACs and TMs wnl. Neck: Supple without LAD Cardiac: Chest wall symmetric. RRR Lungs: Normal respiratory effort without accessory muscle use. CTA bilaterally. Abdomen: Soft, non-tender, non-distended. No rebound tenderness or guarding. Positive BS x4. Ext: Upper and lower extremities atraumatic, without tenderness, deformity, swelling or erythema. Full ROM throughout. no calf tenderness. Neuro: AOx3. Normal speech. Ambulating with steady gait. Psych: Appropriate mood and affect. Responds appropriately to questions. Course Course Course Narrative: Patient tested positive for influenza A. Negative for COVID, RSV, strep throat. Informed patient of results. Educated on symptomatic treatment. Will send Cepacol throat lozenges and Tessalon Perles to pharmacy for sore throat and cough. Advised to continue Tylenol and Motrin at home. Patient has remained stable throughout ED visit today. Discussed worrisome signs and symptoms and when to return to the ED. All questions answered at this time. Patient is agreeable with disposition and stable for discharge. Medical Decision Making Medical Decision Making [facility] Narrative: 29 year old malian speaking female presents to the ED today for evaluation of sore throat, bilateral ear pain, dry cough, and fever x2 days. patient is tachycardic to 111, aebrile. she is nontoxic appearing and in NAD. on exam posterior oropharynx mildly erythematous without edema. No tonsillar exudates or peritonsillar masses. Uvula midline. Controlling secretions and speaking complete sentences. No muffled voice. Lungs are CTA bilaterally without adventitious breath sounds. No noted respiratory distress. bilateral EACs and TMs wnl. Differential diagnosis includes viral syndrome, strep throat. Unlikely EDUCATIONAL TECHNOLOGY COORDINATOR, retropharyngeal abscess, epiglottitis, mono. Plan for viral serology, strep swabs and re-evaluation. Differential Diagnosis Differential Diagnoses: The differential diagnosis associated with the presentation includes As above Admission/Observation Not indicated Lab Data [facility] Lab Attestation statement: I reviewed the patient's lab results. As above Labs: Lab Results 10/21/24 Range/Units 06:37 Influenza Type A (PCR) POSITIVE A (Negative) Influenza Type B (PCR) NEGATIVE (Negative) RSV RNA Qual (PCR) NEGATIVE (Negative) SARS-CoV-2 RNA (RT-PCR) NEGATIVE (Negative) S. pyogenes GrpA TRISH Negative (Negative) External Record Review External record reviewed: Inpatient record Prescription Management I considered prescription management with: Other (Cepacol throat lozenges, Tessalon Perles) Social Determinants Patient?s care significantly limited by Social Determinants of Health including: Other Social Determinant of Health Critical Care Time Critical Care Time Critical Care Time: No Discharge Plan Discharge Clinical Impression: Influenza A Patient Disposition: Home, Self-Care Instructions: Influenza (ED) Additional Instructions: You tested positive for influenza A. You tested negative for covid, rsv and strep throat. Treatment for the flu is symptomatic. I have sent cepacol throat lozenges to your pharmacy for your sore throat. I have sent tessalon perles to your pharmacy for cough. Continue tylenol and motrin at home for fevers and body aches. Follow up with pcp as needed. Return with new or worsening symptoms. Prescriptions: New Cepacol Sore Throat (fabricio-men) 15-2.6 mg lozenge 1 fredis mucous membrane Q2-4H PRN (Reason: sore throat) Qty: 16 0RF benzonatate 100 mg capsule 100 mg PO BID PRN (Reason: cough) Qty: 20 0RF No Action hydroxyzine HCl 25 mg tablet 25 mg PO BID PRN (Reason: anxiety) 30 Days Qty: 60 2RF ibuprofen 800 mg tablet 800 mg PO Q8H PRN (Reason: pain) 30 Days Qty: 90 0RF cholecalciferol (vitamin D3) 50 mcg (2,000 unit) capsule 50 mcg PO DAILY 90 Days Qty: 90 1RF amitriptyline 10 mg tablet 10 mg PO BEDTIME 90 Days Qty: 90 1RF lidocaine [Aspercreme (lidocaine)] 4 % adhesive patch,medicated 1 patch topical DAILY PRN (Reason: pain) 30 Days Qty: 10 0RF Referrals: Elin Bautista MD [Primary Care Provider] - Stand Alone Forms: Work/School Release Interventions: ED Discharge Assessment Last Done: 10/21/24 09:48 Discharge Date/Time: 10/21/24 09:48 Print Language: Lithuanian
[2024-10-21 09:48] VITALS: BP 136/77; PULSE 111; RESP 18; TEMP 36.8; O2SAT 100
== END 2024-10-21 09:48 | disposition home or self-care (01) ==
PROVIDERS: Emergency Provider Emergency Medicine; PCP Internal Medicine
DX: J10.1 Influenza due to other identified influenza virus with other respiratory manifestations (principal); R05.9 Cough, unspecified; J02.9 Acute pharyngitis, unspecified; Z03.818 Encounter for observation for suspected exposure to other biological agents ruled out
CPT/HCPCS: 0241U; 87651; 99282; 99283

== ENCOUNTER 2024-11-12 14:07 | Outpatient (REF) | payer OTHER, SELFPAY ==
--- OUTSIDE RECORDS SUMMARY | 2024-11-12 17:57 | XMS_ITS | Continuity of Care Document ---
Author Organization [facility] Address [address], [address] [place] [address] Phone Care Team Providers Care Sonar Technician Name Role Phone Tish Alonso MD Unavailable [...] Location Reason(s) For Visit Diagnoses Date Provider [facility], [address], [address], [place], [id number], [place] tel:[phone] [place] Office absent menses (chief complaint) No Information 2012 Jose Winston. [address], [address], [place], [id number], [place]. tel:[phone] Family History Family Member Type Diagnosis Age [...]
--- OUTSIDE RECORDS SUMMARY | 2024-11-12 17:57 | XMS_ITS | Continuity of Care Document ---
Author Organization [facility] Address [address] [place] [address] Phone Care Team Providers Care Digital Media Planner Name Role Phone MD CHERYL, TOMI Unavailable Unavailable Advance Directives Directive Yes / No Effective Date File Name No Information Encounters Encounter Description Practice Location Reason(s) For Visit Diagnoses Date Provider Providers Copied on Encounter [facility] [place], [address], [place], [address], [place] tel:[phone] [facility] No Information MD TOMI LUNA. [address], [address], [place], [id number], [place]. tel:[phone] Referring Provider: [place], [address]. Family History Family Member Type Diagnosis Age At Onset No Information Payers Payer name Insurance type Covered democrat ID Authoriza tion(s) [facility] Social History Type Description Quantity Date Captured Comments Sex Female Smoking Status No Information Chief Complaint And Reason For Visit No Information History Of Present Illness Encounter Date Complaint History Of Prese nt Illness No Information Instructions Date Instruction Additional Infor mation No Information Assessments Type Assessment Date No Information
[2024-11-16 00:13] LABS: TS Negative Control Passed; TS Panel A 1; TS Panel B 0; TS Positive Control Passed; TSpotTB Negative (Negative)
== END 2024-11-12 14:08 | disposition home or self-care (01) ==
LOC: HO.LAB 14:07
PROVIDERS: PCP Internal Medicine; Visit Provider Internal Medicine
DX: Z11.1 Encounter for screening for respiratory tuberculosis (principal)
CPT/HCPCS: 36415; 86481

== ENCOUNTER 2024-11-23 10:20 | Outpatient (REF) | payer OTHER, SELFPAY ==
--- NOTE | ~2024-11-23 | CT_ITS ---
EXAMINATION: CT ABDOMEN PELVIS WITHOUT IV CONTRAST HISTORY: M54.50 - Low back pain, unspecified COMPARISON: Comparison is made with the prior examination dated 04/21/2023. TECHNIQUE: CT scan of the abdomen and pelvis was performed without contrast using standard departmental protocol. Coronal and sagittal reformatted images were generated and reviewed. Oral contrast material was not administered at the request of the referring physician. This CT exam was performed with one or more of the following dose reduction techniques: automated exposure control, adjustment of the mA and/or kV according to patient size, use of iterative reconstruction technique. DLP: 445 mGy-cm FINDINGS: LOWER CHEST: The visualized lung bases are clear. There is no pleural effusion. CARDIOVASCULATURE: The heart is normal in size. There is no pericardial effusion. LIVER: The liver is normal in size and contour. The liver has an unremarkable unenhanced appearance. GALLBLADDER / BILE DUCTS: The gallbladder is unremarkable. There is no intra or extrahepatic biliary ductal dilatation. SPLEEN: The spleen is normal in size and has an unremarkable unenhanced appearance. PANCREAS: The pancreas has an unremarkable unenhanced appearance. ADRENAL GLANDS: Unremarkable. KIDNEYS/RETROPERITONEUM: No renal calculi are identified. There is no hydronephrosis. LYMPH NODES: No retroperitoneal lymphadenopathy is identified in the abdomen or pelvis. VASCULATURE: The abdominal aorta is normal in caliber. MESENTERY/PERITONEUM: No free fluid. No masses. There is no free intraperitoneal gas. STOMACH: The stomach is collapsed, limiting evaluation. SMALL BOWEL: The small bowel is normal in caliber. COLON: The colon is unremarkable. APPENDIX: Normal. URINARY BLADDER/PELVIC ORGANS: The urinary bladder is collapsed, limiting evaluation. The uterus has an unremarkable unenhanced appearance. There is a 3.1 cm left adnexal cyst, likely related to the ovary. BONES / SOFT TISSUES: No suspicious bony or soft tissue abnormalities. CT/CT abdomen pelvis wo IV con IMPRESSION: 3.1 cm probable left ovarian cyst. Otherwise unremarkable unenhanced CT of the abdomen and pelvis. Electronically signed by: Brown Lopez MD 11/23/2024 01:52 PM EDT
== END 2024-11-23 10:21 | disposition home or self-care (01) ==
LOC: HO.CT 10:20
PROVIDERS: PCP Internal Medicine; Visit Provider Urology
DX: M54.50 Low back pain, unspecified (principal); E83.59 Other disorders of calcium metabolism; N29 Other disorders of kidney and ureter in diseases classified elsewhere
CPT/HCPCS: 74176

== ENCOUNTER → 2024-11-23 10:22 | Outpatient (BNV) | payer OTHER, SELFPAY | PROVIDERS: PCP Internal Medicine; Visit Provider Radiology Diagnostic Radiology | DX: M54.50 Low back pain, unspecified (principal) | CPT/HCPCS: 74176 ==

== ENCOUNTER 2024-12-07 12:36 | Outpatient (AMB) | payer OTHER, SELFPAY ==
--- NOTE | 2024-12-07 13:04 | A.OFFVIS_ITS ---
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 Discussed further evaluation with 24 hour urine. The patient states she received the kit and sent it back a few days ago. I have reviewed imaging results cat scan-no renal calculi identified. Will schedule telehealth to review 24 hr urine results. Instructed the importance of adequate fluid intake, and low-sodium diet. Results: CTAP 11/23/24--KIDNEYS/RETROPERITONEUM: No renal calculi are identified. There is no hydronephrosis. 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 She complains of back pain. The patient is a Cymraes speaking female. Certified transport operations inspector was present during the visit. Last visit 08/24/2023-discussed at that time CT abdomen/pelvis results from 04/21/2023-- subtle linear hyperdensities are seen bilaterally in the region of the renal medulla, suspicious for medullary nephrocalcinosis. I have discussed that there is risk for increasing stone burden and completing the 24 hour urine would be helpful in counseling. The patient has the kit at home and states she will complete it. Will reimage kidney. 05/29/2023?She presents today for an evaluation of nephrcalcinosis. She complains of back pain. The patient is a Cymraes speaking female. Certified transport operations inspector was present during the visit. I reviewed the CT abdomen/pelvis results from 04/21/2023-- subtle linear hyperdensities are seen bilaterally in the region of the renal medulla, suspicious for medullary nephrocalcinosis, of indeterminate etiology. Reviewed serum Calcium 04/21/2023 was 9.7 She denies UTI symptoms. I discussed with the patient that the medulla nephrcalcinosis may increase the risk of forming kidney stones and kidney infections. I stressed the importance of hydrating well by drinking water up to 2 litres. I discussed that I do not feel that the Xray finding of Medullary Nephrocalcinosis is related to her back pain symptoms. Will send urine for culture. 24-hour urine collection was ordered. [facility] Medical History Physical exam Hypovitaminosis D B12 deficiency Anxiety Surgical History No pertinent past surgical history Family History Father No problems noted. Mother Hypertension Social History Housing: Apartment Alcohol intake: current Alcohol intake frequency: a few times a month Alcohol type: other Patient Tobacco Use Status: Never used Tobacco e-Cigarette/Vaping Use: Never Used Second Hand Smoke Exposure: No service: No Current occupational status: employed Current occupational exposures/hazards: No Cognitive needs: No Hearing needs: No Vision needs: No Review of Systems Const All systems reviewed & are unremarkable except as noted in HPI and below Reports no additional complaints Eyes Reports no additional complaints ENT Reports no additional complaints Card Reports no additional complaints Resp Reports no additional complaints GI Reports no additional complaints Reports as per HPI Musc Reports no additional complaints Skin/Breast Reports system reviewed and no additional complaints, except as documented Neuro Reports no additional complaints Psych Reports no additional complaints Endo Reports no additional complaints Mak/Lymph Reports no additional complaints Aller/Immun Reports no additional complaints Results Reviewed Results Reviewed: Date of Service: 11/23/24 EXAMINATION: CT ABDOMEN PELVIS WITHOUT IV CONTRAST HISTORY: M54.50 - Low back pain, unspecified COMPARISON: Comparison is made with the prior examination dated 04/21/2023. TECHNIQUE: CT scan of the abdomen and pelvis was performed without contrast using standard departmental protocol. Coronal and sagittal reformatted images were generated and reviewed. Oral contrast material was not administered at the request of the referring physician. This CT exam was performed with one or more of the following dose reduction techniques: automated exposure control, adjustment of the mA and/or kV according to patient size, use of iterative reconstruction technique. DLP: 445 mGy-cm FINDINGS: LOWER CHEST: The visualized lung bases are clear. There is no pleural effusion. CARDIOVASCULATURE: The heart is normal in size. There is no pericardial effusion. LIVER: The liver is normal in size and contour. The liver has an unremarkable unenhanced appearance. GALLBLADDER / BILE DUCTS: The gallbladder is unremarkable. There is no intra or extrahepatic biliary ductal dilatation. SPLEEN: The spleen is normal in size and has an unremarkable unenhanced appearance. PANCREAS: The pancreas has an unremarkable unenhanced appearance. ADRENAL GLANDS: Unremarkable. KIDNEYS/RETROPERITONEUM: No renal calculi are identified. There is no hydronephrosis. LYMPH NODES: No retroperitoneal lymphadenopathy is identified in the abdomen or pelvis. VASCULATURE: The abdominal aorta is normal in caliber. MESENTERY/PERITONEUM: No free fluid. No masses. There is no free intraperitoneal gas. STOMACH: The stomach is collapsed, limiting evaluation. SMALL BOWEL: The small bowel is normal in caliber. COLON: The colon is unremarkable. APPENDIX: Normal. URINARY BLADDER/PELVIC ORGANS: The urinary bladder is collapsed, limiting evaluation. The uterus has an unremarkable unenhanced appearance. There is a 3.1 cm left adnexal cyst, likely related to the ovary. BONES / SOFT TISSUES: No suspicious bony or soft tissue abnormalities. IMPRESSION: 3.1 cm probable left ovarian cyst. Otherwise unremarkable unenhanced CT of the abdomen and pelvis. Date of Service: 04/21/23 EXAMINATION: CT ABDOMEN AND PELVIS WITHOUT CONTRAST?? CLINICAL INFORMATION: Right flank pain.?? COMPARISON: None available. FINDINGS: LUNG BASES: The visualized lung bases are unremarkable.?? LIVER, GALLBLADDER, AND BILIARY TREE: The liver is normal in size, shape, and attenuation. No focal hepatic lesion or biliary ductal dilatation is present. The gallbladder is unremarkable with no evidence of radiopaque gallstones, gallbladder wall thickening, or obvious pericholecystic inflammatory changes.?? PANCREAS: Unremarkable.?? SPLEEN: Unremarkable. Tiny punctate calcification likely representing granulomatous disease. ADRENAL GLANDS: Unremarkable.?? KIDNEYS AND URETERS: The kidneys are normal in size, shape, and attenuation. No hydronephrosis, or hydroureter seen. Note is however made of presence of subtle linear hyperdensities seen bilaterally in the region of the both renal medulla, suspicious for medullary nephrocalcinosis (43:7). No perinephric stranding.? ? BLADDER: Unremarkable.?? GASTROINTESTINAL TRACT: The small and large bowel are unremarkable. The appendix is unremarkable (36:7)..?? ABDOMINAL WALL: No significant hernia is appreciated.?? LYMPH NODES: Normal. VASCULAR: Unremarkable. PELVIC VISCERA: Remarkable for simple appearing right adnexal ovarian cyst measuring 4.3 x 4.1 cm. 2.0 cm simple appearing cyst is noted in the left adnexal region. Given the patient's age, no further follow-up is necessary for both these 2 adnexal cysts.? No evidence of any free fluid and/or free air. OSSEOUS STRUCTURES: Mild diffuse osteopenia.?? IMPRESSION: 1. Subtle linear hyperdensities are seen bilaterally in the region of the renal medulla, suspicious for medullary nephrocalcinosis, of indeterminate etiology. 2. Tiny punctate calcification within the spleen likely represent old granulomatous disease. 3. Bilateral adnexal simple appearing cysts (measures 4.3 cm on the right and 2.0 cm on the left), no further follow-up is necessary given the patient's age. 3. Incidental note is made of mild diffuse osteopenia within the visualized bones Assessment & Plan Assessment & Plan (1) Nephrocalcinosis: Code(s): E83.59 - Other disorders of calcium metabolism; N29 - Other disorders of kidney and ureter in diseases classified elsewhere Category: Medical (2) Lumbar pain: Code(s): M54.50 - Low back pain, unspecified Category: Medical Plan 24 hr urine. Patient Instructions: The patient had an opportunity to ask questions regarding treatment plan. The patient expressed understanding and agreement with the above treatment plan. The patient is aware they should contact our office by phone for worsening of their current condition or the appearance of new symptoms. Compliance is encouraged with any medications and followup testing that is ordered. It is a privilege to be allowed the opportunity to participate in the urologic care of your patient. If you have any questions or concerns regarding treatment for the above conditions please do not hesitate to contact me. The office telephone contact is [phone]. This note is constructed in part using voice recognition software. While every effort has been made to ensure accuracy dry cleaner helper errors may have been included. Yours sincerely, Thanh Manriquez MD Coding Level of Care Code Est Pt Level 3 (60430) Complex EM visit Add On G2211 Diagnoses Nephrocalcinosis E83.59; N29 Lumbar pain M54.50
== END 2024-12-07 13:28 | disposition home or self-care (01) ==
LOC: HO.HUSH 12:36
PROVIDERS: PCP Internal Medicine; Visit Provider Urology
DX: E83.59 Other disorders of calcium metabolism (principal); N29 Other disorders of kidney and ureter in diseases classified elsewhere; M54.50 Low back pain, unspecified
CPT/HCPCS: 99213; G2211

== ENCOUNTER → 2024-12-07 12:36 | Outpatient (BNVA) | payer OTHER, SELFPAY | PROVIDERS: PCP Internal Medicine; Visit Provider Urology | DX: E83.59 Other disorders of calcium metabolism (principal); N29 Other disorders of kidney and ureter in diseases classified elsewhere; M54.50 Low back pain, unspecified | CPT/HCPCS: 99212 ==

== ENCOUNTER 2025-01-14 15:07 | Outpatient (AMB) | payer OTHER, SELFPAY ==
--- NOTE | 2025-01-14 15:23 | A.OFFPC_ITS ---
Vital Signs 01/14/25 15:24 Height 5 ft 2 in Weight 174 lb BMI 31.8 BP 112/78 Blood Pressure Location Lt brachial Position Sitting Intake Visit Reasons: annual exam Intake Note: Patient here for an annual physical exam Line Decorator Required: No Accompanied by: Self / Same As Patient Allergies No Known Allergies Allergy (Verified 01/14/25 15:32) Medication List - Last Reconciled 01/14/25 by Elin Gonzalez MD amitriptyline 10 mg PO BEDTIME 90 days desog-e.estradiol/e.estradiol 0.15-0.02 mgx21 /0.01 mg x 5 (Kariva (28)) tabs PO DAILY ibuprofen 800 mg PO Q8H PRN 30 days Tobacco use date assessed: 01/14/25 Dental Screening Dental Screen Date: 01/14/25 Did you have a dental visit in the last 12 months?: Yes Did you have a dental problem in the last 6 months where you did not have access to dental care?: No Was dental information given to patient?: Patient has dentist HPI HPI Comments History of Present Illness Details The patient is a 29-year-old female presenting with multiple concerns, including obesity, anxiety, depression, back pain, and a persistent cough. Recently, she has noted a significant weight gain, which she attributes to increased eating during periods of anxiety. She measures 5'2 and weighs approximately 158 pounds. She has attempted to manage her depression with amitriptyline 10 mg, but experiences day-time dizziness, suggesting her administration time may need adjustment for better tolerability. The patient discusses chronic back pain but has not begun any therapy or management plan despite previous referrals. Additionally, she reports a cough that has been persistent for a few months; the details of any management or investigations for this cough are unclear. The patient denies any allergies to medications and has no history of surgeries. Her vaccination status regarding tetanus has not been updated since 2012. - Administration of tetanus vaccination recommended but deferred at this visit. - Laboratory work ordered, requiring fas ting prior to collection. - Encouraged to continue monitoring depr ession symptoms. - Suggested dietary modifications to man age weight. - Potential weight-management medication discussed. [facility] Medical History Physical exam Hypovitaminosis D B12 deficiency Anxiety Surgical History No pertinent past surgical history Family History Father No problems noted. Mother Hypertension Social History Housing: Apartment Alcohol intake: current Alcohol intake frequency: a few times a month Alcohol type: other Patient Tobacco Use Status: Never used Tobacco e-Cigarette/Vaping Use: Never Used Second Hand Smoke Exposure: No service: No Current occupational status: employed Current occupational exposures/hazards: No Cognitive needs: No Hearing needs: No Vision needs: No Questionnaire PHQ-9 Over the last 2 weeks, how often have you been bothered by any of the following problems? 1. Little interest or pleasure in doing things: more than half the days 2. Feeling down, depressed, or hopeless: several days 3. Trouble falling or staying asleep, or sleeping too much: nearly every day 4. Feeling tired or having little energy: nearly every day 5. Poor appetite or overeating: more than half the days 6. Feeling bad about yourself - or that you are a failure or have let yourself or your family down: more than half the days 7. Trouble concentrating on things, such as reading the newspaper or watching television: more than half the days 8. Moving or speaking so slowly that other people could have noticed. Or the opposite - being so fidgety or restless that you have been moving around a lot more than usual: not at all 9. Thoughts that you would be better off or of hurting yourself in some way: not at all Total score: 15 Depression Screening Interpretation: Positive (no suicidal thoughts) Depression Screening Follow-up: Existing condition and Follow-up Visit Requested Depression Screening Done: Yes 60262 - PHQ-9 Billing: Yes Source: Developed by Drs. Brown Kamara, Vera Clayton, Vin Gonzáles and colleagues, with an educational douglas from [employer]. Thrive Questionnaire Date Thrive assessed: 01/14/25 I am a: Patient What is your living situation today?: I have a steady place to live Within the past 12 months, did the food you bought not last and you didn't have the money to get more?: I choose not to answer this question Within the past 12 months, did you worry whether your food would run out before you got money to buy more?: I choose not to answer this question Do you have trouble paying for medicines?: I choose not to answer this question Do you have trouble getting transportation to medical appointments?: No Do you have trouble paying your heating and electricity bill?: No Do you have trouble taking care of your child, family member or friend?: No Do you have trouble with day-to-day activities such as bathing, preparing meals, shopping, managing finances, etc.?: No Are you currently unemployed and looking for a job?: No Are you interested in more education?: Yes Please select the resources that you would like help with: None Currently or been in a relationship where the following occur: No concerns reported THRIVE Score: 0 AUDIT C Alcohol Use Questionnaire (AUDIT-C) 1. How often do you have a drink containing alcohol?: 2-4 times a month 2. How many drinks containing alcohol do you have on a typical day when you are drinking?: 3 or 4 3. How often do you have six or more drinks on one occasion?: Never Total Score: 3 SOM-7 AMB Questionnaire SOM-7 Date SOM - 7 assessed: 01/14/25 Feeling nervous, anxious, or on edge: 2 = More than half the days Not being able to stop or control worryin = Nearly every day Worrying too much about different things: 3 = Nearly every day Trouble relaxin = Nearly every day Being so restless that it is hard to sit still: 3 = Nearly every day Becoming easily annoyed or irritable: 2 = More than half the days Feeling afraid as if something awful might happen: 0 = Not at all Total SOM-7 score (0-4 normal; 5-9 mild; 10-14 moderate; 15-21 severe): 16 Source: Developed by Drs. Brown Kamara, Vera Clayton, Vin Gonzáles and colleagues, with an educational douglas from [employer]. SOM-7 Assessment Billing SOM-7 Assessment Tool: SOM-7 Assessment 12685 Review of Systems Const All systems reviewed & are unremarkable except as noted in HPI and below Card Denies chest pain at rest, Denies chest pain with activity, Denies edema, Denies irregular heart rhythm, Denies claudication, Denies dyspnea, Denies dyspnea on exertion, Denies orthopnea, Denies paroxysmal nocturnal dyspnea and Denies slow heart rate Resp Denies cough, Denies dyspnea and Denies dyspnea on exertion GI Denies abdominal pain, Denies change in bowel habits, Denies excessive flatus, Denies nausea and Denies vomiting Physical exam (Primary Care) Vital Signs: Last Vital Signs BP 112/78 01/14/25 15:24 BMI result Body Mass Index 31.8 Tobacco/Smoking Status: Tobacco use Status Tobacco use date assessed 01/14/25 01/14/25 15:30 Patient Tobacco Use Status Never used Tobacco 01/14/25 15:30 e-Cigarette/Vaping Use Never Used 01/14/25 15:30 PHQ-9: PHQ-9 Score PHQ-9: Total score 15 01/14/25 15:41 Depression Screening Interpretation: Positive (no suicidal thoughts) Depression Screening Follow-up: Existing condition and Follow-up Visit Requested Thrive Assessment: Date of Thrive Assessment Date Thrive assessed 01/14/25 01/14/25 15:30 Currently or been in a relationship where the following occur: No concerns reported HENMT Head: Yes normal to inspection and Yes atraumatic Ears: external ears normal Eyes General: appearance normal, both eyes and all related structures Eyelids: Yes eyelids normal Conjunctivae: conjunctivae normal Neck Neck: Yes normal visual inspection and Yes supple Resp Effort & Inspection: normal respiratory effort Auscultation: clear to auscultation bilaterally Cardio Jugular venous distension: no JVD Rate: regular rate Rhythm: regular rhythm Heart sounds: S1 normal heart sound present and S2 normal heart sound present GI Inspection: Yes normal to inspection Palpation (GI): Soft to palpation and nontender Auscultation: normal bowel sounds Skin General skin exam: no rashes or lesions noted Neuro General: no focal motor deficits Extrem General: Yes full ROM Psych Appearance: grossly normal Immunizations Boostrix Tdap 2.5 Lf unit-8 mcg-5 Lf/0.5 mL intramuscular syringe Performing Provider: Elin Gonzalez MD [facility] [place] [facility] Administered by: SHARIF Matos on 01/14/25 15:47 Dose Route Admin Location Dispensed Lot Number Expiration Date NDC [employer] 0.5 mL IM Left Deltoid 0.5 mL [id number] 04/28/27 [id number] [employer] VIS Given Date VIS Provided VIS Publication Date 01/14/25 Single Vaccine 24 Eligibility Eligibility Date Funding Source Not [facility] Eligible 01/14/25 Private Coding Level of Care Code Est Pt Level 3 (03740) Est Pt Prev Care 18-39y(88942) Diagnoses Annual physical exam Z00.00 Mild major depression F32.0 Lumbar pain M54.50 Right hand pain M79.641 Additional Codes PHQ-9 - 03828 - PHQ-9 Billing: Yes ([id number]) SOM-7 Assessment Billing - SOM-7 Assessment Tool: SOM-7 Assessment 49733 ([id number]) Time Spent (min) 35 Assessment & Plan Assessment & Plan (1) Annual physical exam: Code(s): Z00.00 - Encounter for general adult medical examination without abnormal findings Category: Medical (2) Mild major depression: Code(s): F32.0 - Major depressive disorder, single episode, mild Category: Medical (3) Lumbar pain: Code(s): M54.50 - Low back pain, unspecified Category: Medical (4) Right hand pain: Code(s): M79.641 - Pain in right hand Category: Medical Plan Management strategies for obesity include dietary modifications with attention to behavior-induced eating. Depression and anxiety will be addressed by adjusting the timing of amitriptyline and considering alternative medications to complement weight loss. Chronic back pain will be directed to pain management for initiation of physical therapy. Persistent cough should continue to be monitored, and further examination may be necessary if symptoms do not resolve. Health maintenance actions involve updating vaccinations and obtaining fasting labs. Discussion with the patient highlighted the importance of lifestyle changes and compliance with treatment regimens. Patient was informed and verbally consented to the use of an ambient scribe for clinic note documentation during this visit. I discussed the current status of the patient's health, including weight management and the influences on her obesity from anxiety-related eating. I highlighted the potential benefits of adjusting her medication to manage depression symptoms more effectively, closely monitoring for adverse effects. Pain management through therapy was recommended as a significant step in addressing her back pain. I also emphasized the importance of follow-up to monitor her cough and consider differentials if symptoms persist. We reviewed lifestyle modifications as a crucial part of her management plan and the importance of adhering to the prescribed interventions. The patient was informed about the significance of health screenings and vaccination updates, including the tetanus booster. Orders: Orders TDaP Immunization Today Z23 - Encounter for immunization Lipid Panel Today Z00.00 - Encounter for general adult medical examination without abnormal findings Comprehensive [place]. Panel Fast Today Z00.00 - Encounter for general adult medical examination without abnormal findings XR hand RT 2V Today M79.641 - Pain in right hand Vitamin D 25-OH Total Today E55.9 - Vitamin D deficiency, unspecified Referrals Pain Management Referral G89.29 - Other chronic pain, M54.50 - Low back pain, unspecified Medications: New bupropion HCl XL 150 mg PO QAM 90 days 90 tabs 1RF F32.0 - Major depressive disorder, single episode, mild Patient Instructions: - Adjust the timing of amitriptyline intake to 4:00-5:00 pm for better effect at night. - Follow up with pain management for chronic back pain evaluation. - Monitor symptoms of cough and report if persistence continues. - Avoid sugary snacks; consider healthier alternatives to manage weight. - Complete fasting lab tests as ordered. - Update tetanus vaccination at the next opportunity. - Continue efforts to address anxiety and depression through prescribed therapy and lifestyle changes.
[2025-01-14 15:24] VITALS: BP 112/78; BMI 31.8
== END 2025-01-14 15:47 | disposition home or self-care (01) ==
LOC: HO.HMCH 15:08
PROVIDERS: PCP Internal Medicine; Visit Provider Internal Medicine
DX: Z00.00 Encounter for general adult medical examination without abnormal findings (principal); F32.0 Major depressive disorder, single episode, mild; M54.50 Low back pain, unspecified; M79.641 Pain in right hand; Z23 Encounter for immunization

== ENCOUNTER → 2025-01-14 15:07 | Outpatient (BNVA) | payer OTHER, SELFPAY | PROVIDERS: PCP Internal Medicine; Visit Provider Internal Medicine | DX: Z00.00 Encounter for general adult medical examination without abnormal findings (principal); E66.9 Obesity, unspecified; F41.9 Anxiety disorder, unspecified; R05.3 Chronic cough; G89.29 Other chronic pain; F32.0 Major depressive disorder, single episode, mild; M54.50 Low back pain, unspecified; M79.641 Pain in right hand; E55.9 Vitamin D deficiency, unspecified; Z23 Encounter for immunization; Z68.31 Body mass index [BMI] 31.0-31.9, adult; Z79.899 Other long term (current) drug therapy | CPT/HCPCS: 90471; 90715; 96127; 99212; 99395 ==

== ENCOUNTER 2025-01-15 07:54 | Outpatient (AMB) | payer OTHER, SELFPAY ==
--- NOTE | 2025-01-15 07:56 | MHC.OFFVIS ---
Intake Visit Reasons: 5w/Litho results Allergies No Known Allergies Allergy (Verified 01/14/25 15:32) Medication List - Last Reconciled 01/15/25 by Thanh Manriquez MD amitriptyline 10 mg PO BEDTIME 90 days bupropion HCl XL 150 mg PO QAM 90 days desog-e.estradiol/e.estradiol 0.15-0.02 mgx21 /0.01 mg x 5 (Kariva (28)) tabs PO DAILY ibuprofen 800 mg PO Q8H PRN 30 days HPI Comments Details: 01/15/25--Discussed 24 hour urine results collected: 12/06/24--Total volume 950 mL, Calcium 155 mg; Oxalate 24 mg, Citrate 329 mg, Sodium 189. Instructed on importance of fluid intake. I have discussed diet modification to decrease risk of forming more kidney stones. I have discussed low oxalate diet and specific foods to avoid including certain green leafy vegetables, chocalate, nuts, tea, beets, rubarb; low sodium, decreased use of animal protein and the importance of hydration drinking up to 2-2.5 liters of fluids and use of adding lemon to water to increase citrate in the diet. Plan diet management, monitor kidneys, fu in a year with renal US. Results: CTAP 11/23/24--No renal calculi, no hydronephrosis. 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 Discussed further evaluation with 24 hour urine. The patient states she received the kit and sent it back a few days ago. I have reviewed imaging results cat scan-no renal calculi identified. Will schedule telehealth to review 24 hr urine results. Instructed the importance of adequate fluid intake, and low-sodium diet. Results: CTAP 11/23/24--KIDNEYS/RETROPERITONEUM: No renal calculi are identified. There is no hydronephrosis. 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 She complains of back pain. The patient is a Lebanese speaking female. Certified command and control was present during the visit. Last visit 08/24/2023-discussed at that time CT abdomen/pelvis results from 04/21/2023-- subtle linear hyperdensities are seen bilaterally in the region of the renal medulla, suspicious for medullary nephrocalcinosis. I have discussed that there is risk for increasing stone burden and completing the 24 hour urine would be helpful in counseling. The patient has the kit at home and states she will complete it. Will reimage kidney. 05/29/2023?She presents today for an evaluation of nephrcalcinosis. She complains of back pain. The patient is a Lebanese speaking female. Certified command and control was present during the visit. I reviewed the CT abdomen/pelvis results from 04/21/2023-- subtle linear hyperdensities are seen bilaterally in the region of the renal medulla, suspicious for medullary nephrocalcinosis, of indeterminate etiology. Reviewed serum Calcium 04/21/2023 was 9.7 She denies UTI symptoms. I discussed with the patient that the medulla nephrcalcinosis may increase the risk of forming kidney stones and kidney infections. I stressed the importance of hydrating well by drinking water up to 2 litres. I discussed that I do not feel that the Xray finding of Medullary Nephrocalcinosis is related to her back pain symptoms. Will send urine for culture. 24-hour urine collection was ordered. [facility] Medical History Physical exam Hypovitaminosis D B12 deficiency Anxiety Surgical History No pertinent past surgical history Family History Father No problems noted. Mother Hypertension Social History Housing: Apartment Alcohol intake: current Alcohol intake frequency: a few times a month Alcohol type: other Patient Tobacco Use Status: Never used Tobacco e-Cigarette/Vaping Use: Never Used Second Hand Smoke Exposure: No service: No Current occupational status: employed Current occupational exposures/hazards: No Cognitive needs: No Hearing needs: No Vision needs: No Review of Systems Const All systems reviewed & are unremarkable except as noted in HPI and below Reports no additional complaints Eyes Reports no additional complaints ENT Reports no additional complaints Card Reports no additional complaints Resp Reports no additional complaints GI Reports no additional complaints Reports as per HPI Musc Reports no additional complaints Skin/Breast Reports system reviewed and no additional complaints, except as documented Neuro Reports no additional complaints Psych Reports no additional complaints Endo Reports no additional complaints Mak/Lymph Reports no additional complaints Aller/Immun Reports no additional complaints Telehealth Telehealth Telehealth Platform: [employer] Location of provider rendering services: practice address Location of patient: address on file Telehealth method: video Patient verbally consented to treatment: Yes Patient verbally consented to billing insurance company: Yes Patient informed of any privacy concerns related to visit: Yes Results Reviewed Results Reviewed: Date of Service: 11/23/24 EXAMINATION: CT ABDOMEN PELVIS WITHOUT IV CONTRAST HISTORY: M54.50 - Low back pain, unspecified COMPARISON: Comparison is made with the prior examination dated 04/21/2023. TECHNIQUE: CT scan of the abdomen and pelvis was performed without contrast using standard departmental protocol. Coronal and sagittal reformatted images were generated and reviewed. Oral contrast material was not administered at the request of the referring physician. This CT exam was performed with one or more of the following dose reduction techniques: automated exposure control, adjustment of the mA and/or kV according to patient size, use of iterative reconstruction technique. DLP: 445 mGy-cm FINDINGS: LOWER CHEST: The visualized lung bases are clear. There is no pleural effusion. CARDIOVASCULATURE: The heart is normal in size. There is no pericardial effusion. LIVER: The liver is normal in size and contour. The liver has an unremarkable unenhanced appearance. GALLBLADDER / BILE DUCTS: The gallbladder is unremarkable. There is no intra or extrahepatic biliary ductal dilatation. SPLEEN: The spleen is normal in size and has an unremarkable unenhanced appearance. PANCREAS: The pancreas has an unremarkable unenhanced appearance. ADRENAL GLANDS: Unremarkable. KIDNEYS/RETROPERITONEUM: No renal calculi are identified. There is no hydronephrosis. LYMPH NODES: No retroperitoneal lymphadenopathy is identified in the abdomen or pelvis. VASCULATURE: The abdominal aorta is normal in caliber. MESENTERY/PERITONEUM: No free fluid. No masses. There is no free intraperitoneal gas. STOMACH: The stomach is collapsed, limiting evaluation. SMALL BOWEL: The small bowel is normal in caliber. COLON: The colon is unremarkable. APPENDIX: Normal. URINARY BLADDER/PELVIC ORGANS: The urinary bladder is collapsed, limiting evaluation. The uterus has an unremarkable unenhanced appearance. There is a 3.1 cm left adnexal cyst, likely related to the ovary. BONES / SOFT TISSUES: No suspicious bony or soft tissue abnormalities. IMPRESSION: 3.1 cm probable left ovarian cyst. Otherwise unremarkable unenhanced CT of the abdomen and pelvis. Date of Service: 04/21/23 EXAMINATION: CT ABDOMEN AND PELVIS WITHOUT CONTRAST?? CLINICAL INFORMATION: Right flank pain.?? COMPARISON: None available. FINDINGS: LUNG BASES: The visualized lung bases are unremarkable.?? LIVER, GALLBLADDER, AND BILIARY TREE: The liver is normal in size, shape, and attenuation. No focal hepatic lesion or biliary ductal dilatation is present. The gallbladder is unremarkable with no evidence of radiopaque gallstones, gallbladder wall thickening, or obvious pericholecystic inflammatory changes.?? PANCREAS: Unremarkable.?? SPLEEN: Unremarkable. Tiny punctate calcification likely representing granulomatous disease. ADRENAL GLANDS: Unremarkable.?? KIDNEYS AND URETERS: The kidneys are normal in size, shape, and attenuation. No hydronephrosis, or hydroureter seen. Note is however made of presence of subtle linear hyperdensities seen bilaterally in the region of the both renal medulla, suspicious for medullary nephrocalcinosis (43:7). No perinephric stranding.? ? BLADDER: Unremarkable.?? GASTROINTESTINAL TRACT: The small and large bowel are unremarkable. The appendix is unremarkable (36:7)..?? ABDOMINAL WALL: No significant hernia is appreciated.?? LYMPH NODES: Normal. VASCULAR: Unremarkable. PELVIC VISCERA: Remarkable for simple appearing right adnexal ovarian cyst measuring 4.3 x 4.1 cm. 2.0 cm simple appearing cyst is noted in the left adnexal region. Given the patient's age, no further follow-up is necessary for both these 2 adnexal cysts.? No evidence of any free fluid and/or free air. OSSEOUS STRUCTURES: Mild diffuse osteopenia.?? IMPRESSION: 1. Subtle linear hyperdensities are seen bilaterally in the region of the renal medulla, suspicious for medullary nephrocalcinosis, of indeterminate etiology. 2. Tiny punctate calcification within the spleen likely represent old granulomatous disease. 3. Bilateral adnexal simple appearing cysts (measures 4.3 cm on the right and 2.0 cm on the left), no further follow-up is necessary given the patient's age. 3. Incidental note is made of mild diffuse osteopenia within the visualized bones Assessment & Plan Assessment & Plan (1) Nephrocalcinosis: Code(s): E83.59 - Other disorders of calcium metabolism; N29 - Other disorders of kidney and ureter in diseases classified elsewhere Category: Medical (2) Lumbar pain: Code(s): M54.50 - Low back pain, unspecified Category: Medical (3) History of kidney stones: Code(s): Z87.442 - Personal history of urinary calculi Category: Medical Plan Plan diet management, monitor kidneys, fu in a year with renal US. Orders: Orders US renal BI 10 Months Z87.442 - Personal history of urinary calculi Patient Instructions: The patient had an opportunity to ask questions regarding treatment plan. The patient expressed understanding and agreement with the above treatment plan. The patient is aware they should contact our office by phone for worsening of their current condition or the appearance of new symptoms. Compliance is encouraged with any medications and followup testing that is ordered. It is a privilege to be allowed the opportunity to participate in the urologic care of your patient. If you have any questions or concerns regarding treatment for the above conditions please do not hesitate to contact me. The office telephone contact is [phone]. This note is constructed in part using voice recognition software. While every effort has been made to ensure accuracy computer applications engineer errors may have been included. Yours sincerely, Thanh Manriquez MD Coding Level of Care Code Tele New Pt Level 3 (25826) Diagnoses Nephrocalcinosis E83.59; N29 Lumbar pain M54.50 History of kidney stones Z87.442
== END 2025-01-15 08:43 | disposition home or self-care (01) ==
LOC: HO.HUSH 07:54
PROVIDERS: PCP Internal Medicine; Visit Provider Urology
DX: E83.59 Other disorders of calcium metabolism (principal); N29 Other disorders of kidney and ureter in diseases classified elsewhere; M54.50 Low back pain, unspecified; Z87.442 Personal history of urinary calculi
CPT/HCPCS: 99213

== ENCOUNTER 2025-02-01 13:45 | Outpatient (AMB) | payer OTHER, SELFPAY ==
--- NOTE | 2025-02-01 13:48 | MHC.OFFVIS ---
Vital Signs 02/01/25 13:50 Height 5 ft 2 in Weight 172 lb BMI 31.5 BP 129/74 Blood Pressure Location Lt brachial Position Sitting Respiration 16 Pulse 92 Pulse Source Pulse Oximeter Pulse Oximetry (%) 98 Oxygen Delivery Method Room Air Intake Visit Reasons: Low back pain, unspecified [employer] Supervisor Required: Yes T[employer] Supervisor Name: Stanley [id number] Accompanied by: Friend Allergies No Known Allergies Allergy (Verified 02/01/25 13:52) Medication List - Last Reconciled 02/01/25 by [facility] Santamaria amitriptyline 10 mg PO BEDTIME 90 days bupropion HCl XL 150 mg PO QAM 90 days celecoxib 200 mg PO BID PRN desog-e.estradiol/e.estradiol 0.15-0.02 mgx21 /0.01 mg x 5 (Juan Carlos (28)) tabs PO DAILY lidocaine 5% leave on most painful area for up to 12 hrs topically daily; HPI Comments Details: The patient is a 29-year-old female presenting with chronic low back pain which commenced one to one and a half years ago. The pain exacerbated during her work involving strenuous physical activity. The character of this pain is described variably as stabbing, aching, pinching, and cramping, showing max intensity post-activities and minimal at rest, especially after heat application. The patient denies any specific incident of injury or trauma relating this condition to work routines largely involving bending and lifting. An x-ray from 2022 was normal, and pain augmentation occurs during physical exertion like making beds and vacuuming. She also has knee pain, particularly on the left side, attributed possibly to mild arthritis, with symptom relief experienced upon night rest and leg elevation. She currently uses only ibuprofen without perceivable benefit and has briefly utilized another medication in the past, though the name escapes memory. Muscle relaxants have not been tried, nor has formal physical or chiropractic therapy been initiated. - Onset: 1 to 1.5 years ago - Quality: Stabbing, aching, pinching, cramping, spasming - Location: Lower back above the right buttock. Left knee-medial aspects - Aggravating factors: Bending forward, prolonged physical tasks, changing positions, heavy lifting, cleaning, twisting, climbing stairs. - Alleviating factors: Heat application, rest - Radiation: Occasional to the legs - Intensity: Fluctuates, 5-10 post-activities, 0 in mornings - Interference: Affects work, notably tasks involving bending - Affect: Pain impacts physical function related to work - Analgesia: Current use of ibuprofen without effect - Adverse Effects: None reported - Activities of Daily Living: Pain limits bending and work-related physical activities - Aberrant Drug Related Behaviors: None reported Oswestry Low Back Pain Disability score=29 [facility] Medical History Physical exam Hypovitaminosis D B12 deficiency Anxiety Surgical History No pertinent past surgical history Family History Father No problems noted. Mother Hypertension Social History Housing: Apartment Alcohol intake: current Alcohol intake frequency: a few times a month Alcohol type: other Patient Tobacco Use Status: Never used Tobacco e-Cigarette/Vaping Use: Never Used Second Hand Smoke Exposure: No service: No Current occupational status: employed Current occupational exposures/hazards: No Cognitive needs: No Hearing needs: No Vision needs: No Review of Systems Const Details: - Musculoskeletal: Reports chronic low back pain and intermittent left knee pain - Neurological: Denies radicular pain beyond occasional radiation All systems reviewed & are unremarkable except as noted in HPI and below Physical Exam Vital Signs: Last Vital Signs Pulse 92 02/01/25 13:50 Resp 16 02/01/25 13:50 BP 129/74 02/01/25 13:50 Pulse Ox 98 02/01/25 13:50 Oxygen Delivery Method Room Air 02/01/25 13:50 BMI result Body Mass Index 31.5 General: Appears afebrile. Alert and oriented. Mood and affect appropriate. Follows and participates in conversation appropriately. Respiratory effort is unlabored. No cough. Able to transition from sit to stand unassisted. Ambulates with bilaterally normal heel strike and toe off. General: Yes no CVA tenderness Back/Spine/Pelvis Other: Patient is able to walk and stand on heels and tip toes with no mild difficulty on the left due to knee pain otherwise demonstrating good motor tone. Normal gait, no limping. Can flex forward to 65-70 degrees and extend to 10-15 degrees before experiencing lumbar pain. Demonstrates 5/5 strength of quadriceps bilaterally as well as flexion/dorsiflexion of bilateral feet against resistance. 2+ pedal pulses bilaterally. Straight leg rise with dorsiflexion negative bilaterally. +2 patellar and achilles reflexes bilaterally. Facet loading test positive bilaterally. Arvind sign, Nolan?s, Gaenslen, Pelvic compression and Stinchfield tests are positive on the right, equivocal on the left. No groin pain with I/E hip rotations. Valsalva maneuver negative. Back: no CVA tenderness Cervical Spine: cervical ROM normal and No Cervical spine tenderness Thoracic/Lumbar Spine: thoracic and lumbar spine normal to inspection, No Thoracic/lumbar spine scar(s), Lasegue's sign negative, straight leg raise negative bilaterally, pain with thoraco-lumbar ROM, paraspinal muscle tenderness on the right in the mid lumbar and in the lower lumbar, No thoracic spinal tenderness and lumbar spinal tenderness at L4 and at L5 Pelvis: no buttock tenderness Sacroiliac joints: on the right tender to palpation and on the left nontender Extrem Left lower extremity: knee Details: normal to inspection, tenderness Location: of the medial joint line, normal ROM and crepitus; no swelling, no ecchymosis and no unusual warmth Results Reviewed Results Reviewed: XR LEFT KNEE XR LUMBOSACRAL SPINE 11/12/22 CLINICAL INDICATION: Low back and left knee pain. COMPARISON: None available. TECHNIQUE: 2 views left knee, 3 views lumbar spine. FINDINGS: LEFT KNEE: There is mild narrowing of the medial compartment but no other abnormality is seen. No joint effusion. No chondrocalcinosis. LUMBAR SPINE: Vertebral body heights and disc spaces are well preserved. No significant degenerative changes are seen. No fractures, subluxations. No bony destructive lesions. IMPRESSION: Mild narrowing of the medial compartment of the left knee. Normal lumbar spine. CT abdomen pelvis wo IV con 11/23/24 BONES / SOFT TISSUES: No suspicious bony or soft tissue abnormalities. Assessment & Plan Assessment & Plan (1) Lower back pain: Code(s): M54.50 - Low back pain, unspecified Category: Medical Qualifiers: Back pain laterality: midline Chronicity: chronic Sciatica presence: without sciatica Qualified Code(s): M54.50 - Low back pain, unspecified; G89.29 - Other chronic pain (2) Muscle spasm of back: Code(s): M62.830 - Muscle spasm of back Category: Medical (3) Sacroiliac joint pain: Code(s): M53.3 - Sacrococcygeal disorders, not elsewhere classified Category: Medical (4) Left knee pain: Code(s): M25.562 - Pain in left knee Category: Medical (5) Sacroiliac joint pain: Code(s): M53.3 - Sacrococcygeal disorders, not elsewhere classified Category: Medical Plan We discussed probable causes of her chronic low back pain and the outlined management plan, including NSAIDs and non-pharmacologic strategies such as physical therapy and lidocaine patches. I explained the anticipated effectiveness of Celecoxib compared to ibuprofen and highlighted the importance of follow-up for observing treatment response and adjusting as needed. The patient was informed of the side effects associated with Celecoxib and was advised of the sparing use of NSAIDs to avoid adverse gastrointestinal effects. We reviewed the necessity to conduct updated x-rays to monitor any progression since 2022. I assured the patient of a follow-up call once x-ray results are available, to reassess treatment progression and make necessary amendments. Encouraged daily physical activity, home exercise program, adequate hydration, good posture, well-balanced diet, and weight optimization. All questions and concerns have been answered and patient agreed with the plan. Follow-up for x-ray results/after PT and sooner as needed. Patient was informed and verbally consented to the use of an ambient scribe for clinic note documentation during this visit. Orders: Orders XR lumbar spine 4V min Today G89.29 - Other chronic pain, M54.50 - Low back pain, unspecified XR sacroiliac joint min 3V Today G89.29 - Other chronic pain, M53.3 - Sacrococcygeal disorders, not elsewhere classified, M54.50 - Low back pain, unspecified PT Evaluation and Treatment Today G89.29 - Other chronic pain, M25.562 - Pain in left knee, M53.3 - Sacrococcygeal disorders, not elsewhere classified, M54.50 - Low back pain, unspecified, M62.830 - Muscle spasm of back XR knee LT 3V Today M25.562 - Pain in left knee Medications: New celecoxib Take it with food and full glass of water. Avoid other NSAIDs. 200 mg PO BID PRN 60 caps 0RF pain G89.29 - Other chronic pain, M53.3 - Sacrococcygeal disorders, not elsewhere classified, M54.50 - Low back pain, unspecified lidocaine 5% leave on most painful area for up to 12 hrs topically daily; 30 ea 0RF pain G89.29 - Other chronic pain, M54.50 - Low back pain, unspecified Discontinued ibuprofen Discontinued Reason: Patient Completed Course 800 mg PO Q8H 30 days PRN 90 tabs 0RF pain Coding Level of Care Code New Pt Level 4 (07142) Diagnoses Chronic midline low back pain without sciatica M54.50; G89.29 Back pain laterality: midline Chronicity: chronic Sciatica presence: without sciatica Muscle spasm of back M62.830 Sacroiliac joint pain M53.3 Left knee pain M25.562
[2025-02-01 13:50] VITALS: BP 129/74; PULSE 92; RESP 16; O2SAT 98; BMI 31.5
--- OUTSIDE RECORDS SUMMARY | 2025-02-01 15:00 | XMS_ITS | Continuity of Care Document ---
Author Organization [facility] Address [address], [address] [place] [address] Phone Care Team Providers Care Donation Specialist Name Role Phone Tish Alonso MD Unavailable [...] Location Reason(s) For Visit Diagnoses Date Provider [facility], [address], [address], [place], [id number], [place] tel:[phone] [address] Office absent menses (chief complaint) No Information [address]. [address], [address], [place], [id number], [place]. tel:[phone] Family History Family Member Type Diagnosis Age At Onset No Information Payers Payer name Insurance type Covered democrat ID Authoriza tion(s) No Information Social History [...]
== END 2025-02-01 14:23 | disposition home or self-care (01) ==
LOC: HO.PMC 13:46
PROVIDERS: PCP Internal Medicine; Referring Provider Internal Medicine; Visit Provider Nurse Practitioner Family
DX: M54.50 Low back pain, unspecified (principal); G89.29 Other chronic pain; M62.830 Muscle spasm of back; M53.3 Sacrococcygeal disorders, not elsewhere classified; M25.562 Pain in left knee
CPT/HCPCS: 99204

== ENCOUNTER → 2025-02-01 13:45 | Outpatient (BNVA) | payer OTHER, SELFPAY | PROVIDERS: PCP Internal Medicine; Referring Provider Internal Medicine; Visit Provider Nurse Practitioner Family | DX: M54.50 Low back pain, unspecified (principal); G89.29 Other chronic pain; M62.830 Muscle spasm of back; M53.3 Sacrococcygeal disorders, not elsewhere classified; M25.562 Pain in left knee | CPT/HCPCS: 99202 ==

== ENCOUNTER 2025-02-03 13:39 | Outpatient (REF) | payer OTHER, SELFPAY ==
--- NOTE | ~2025-02-03 | XR_ITS ---
EXAMINATION: Lumbar spine 5 views. CLINICAL INDICATION: Low back pain. COMPARISON: Lumbar spine 11/12/2022. FINDINGS: There is maintained lumbar lordosis. The vertebral heights, alignment and disc heights are normal. No visible acute fracture or dislocation seen. On oblique views there is no listhesis or pars defect. SI joints are symmetrical and normal. XR/XR lumbar spine 4V min IMPRESSION: Unremarkable lumbar spine exam. Electronically signed by: Topher Elizabeth MD 02/04/2025 08:30 AM EDT
--- NOTE | ~2025-02-03 | XR_ITS ---
EXAMINATION: XR KNEE, LEFT CLINICAL INFORMATION: M25.562 - Pain in left knee COMPARISON: None available. TECHNIQUE: Four views of the left knee. FINDINGS: No fracture or joint effusion. Alignment is anatomic. Joint spaces are maintained. No abnormal soft tissue calcification. XR/XR knee LT 3V IMPRESSION: Normal left knee. Electronically signed by: Topher Elizabeth MD 02/04/2025 08:32 AM EDT
--- NOTE | ~2025-02-03 | XR_ITS ---
EXAMINATION: XR SACROILIAC JOINTS CLINICAL INFORMATION: M53.3 - Sacrococcygeal disorders, not elsewhere classified COMPARISON: None available. TECHNIQUE: 3 views of the sacroiliac joints FINDINGS: Bones and soft tissues are normal. No fracture. Alignment is anatomic. Sacroiliac joint spaces are well-maintained without erosions or surrounding sclerosis. XR/XR sacroiliac joint min 3V IMPRESSION: Normal sacroiliac joints. Electronically signed by: Topher Elizabeth MD 02/04/2025 08:31 AM EDT
--- NOTE | ~2025-02-03 | XR_ITS ---
EXAMINATION: XR HAND, RIGHT CLINICAL INFORMATION: M79.641 - Pain in right hand COMPARISON: None available. TECHNIQUE: PA, lateral, and oblique views of the right hand. FINDINGS: The bones and soft tissues are normal. No fracture. Alignment is anatomic. Joint spaces are maintained. No erosions or soft tissue calcifications. XR/XR hand RT 2V IMPRESSION: Normal right hand. Electronically signed by: Topher Elizabeth MD 02/04/2025 08:31 AM EDT
== END 2025-02-03 13:40 | disposition home or self-care (01) ==
LOC: HO.XRAY 13:39
PROVIDERS: PCP Internal Medicine; Visit Provider Nurse Practitioner Family
DX: M54.50 Low back pain, unspecified (principal); G89.29 Other chronic pain; M25.562 Pain in left knee; M53.3 Sacrococcygeal disorders, not elsewhere classified; M79.641 Pain in right hand
CPT/HCPCS: 72110; 72202; 73120; 73562

== ENCOUNTER → 2025-02-03 13:47 | Outpatient (BNV) | payer OTHER, SELFPAY | PROVIDERS: PCP Internal Medicine; Visit Provider Radiology Diagnostic Radiology | DX: M54.50 Low back pain, unspecified (principal); M53.3 Sacrococcygeal disorders, not elsewhere classified; M25.562 Pain in left knee; M79.641 Pain in right hand | CPT/HCPCS: 72110; 72202; 73120; 73562 ==

== ENCOUNTER 2025-02-10 11:03 | Outpatient (RCR) | payer OTHER, SELFPAY ==
--- NOTE | 2025-02-10 11:45 | MHC.PT.EP ---
[facility] [place] [facility] [place] [facility] [place] Office [address] [phone] F: [phone] F: [phone] F: [phone] F: [phone] Physical Therapy Plan of Care Date of Evaluation: 02/10/25 Date of Surgery: NA Diagnosis: Low back pain Other chronic pain Pain in L knee Assessment: Nusrat is a 29 year old female who is referred to PT for low back pain and pain in L knee . She denies having knee pain. She presented with gradual onset of R sided back pain about 6 months back. 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 She denies any trauma or falls. On PT examination she presented with mild TTP over R SIJ, 9/10 pain in R side of back with bending, prolonged standing and walking, pain with trunk extension ROM, altered SI symmetry, decreased strength in R LE and core, and impaired posture. She lives alone and is independent with all ADLS but has pain with bending activities. 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 She would benefit from skilled PT to address the aforementioned impairments and improve tolerance to functional activities. Frequency and Duration: The patient will be seen 2/week for 5 weeks Short Term Goals: 1. Pt will have 50% decrease in pain which will enable her to tolerate standing and walking without pain in 2 weeks 2. Pt will be able to move her trunk through full ROM without pain and demonstrate good mechanics for bending and lifting which will enable her to bend for ADLS without pain in 3 weeks Environmental Marketing Representative Goals: 1. Pt will demonstrate an increase in muscle strength by 1 grade which will enable her to perform all ADLs and work activities without pain in 5 weeks 2. Pt will be independent with all HEP for symptom management and maintenance following d/c in 5 weeks. Treatment Plan: Modalities to reduce pain, spasms and effusion. Manual therapy to restore motion and function. Therapeutic exercise to improve strength and flexibility. Neuromuscular re-education for posture and balance. Therapeutic activities to return to functional activities of daily living. Electronically signed by: Roxy Lambert PT DPT Please sign and return to therapist. Thank you for your referral.
--- NOTE | 2025-03-12 08:35 | MHC.PT.DC ---
[facility] [place] Office [place] [facility] [place] Office [address] Yeyo Maguire [address] [phone] F: [phone] F: [phone] F: [phone] F: [phone] Physical Therapy Discharge Report Diagnosis: Low back pain Other chronic pain Pain in L knee Date of Surgery: NA Date of Evaluation: 02/10/25 Date of Discharge: 03/12/25 Treatments to Date: 1 Cancellations to Date: 0 No Shows to Date: 2 Discharge Status: Visit Non-compliance Discharge Summary: Nusrat attended her evaluation and then no showed 2 visits after. Attempted to call pt but she did not return the call. She is therefore being d/c from PT for non compliance per our attendance policy. Electronically signed by: Roxy Lambert PT DPT Please sign and return to therapist. Thank you for your referral.
== END 2025-03-12 08:35 | disposition home or self-care (01) ==
LOC: HO.PT 11:03
PROVIDERS: PCP Internal Medicine; Visit Provider Nurse Practitioner Family
DX: M54.50 Low back pain, unspecified (principal); G89.29 Other chronic pain; M25.562 Pain in left knee; M62.830 Muscle spasm of back; M53.3 Sacrococcygeal disorders, not elsewhere classified
CPT/HCPCS: 97112; 97140; 97161

== ENCOUNTER 2025-04-08 11:35 | Outpatient (AMB) | payer OTHER, SELFPAY ==
[2025-04-08 11:50] VITALS: BP 102/60; PULSE 92; TEMP 37; O2SAT 99; BMI 31.5
--- NOTE | 2025-04-08 11:50 | AM.OFFWIN_ITS ---
Intake Vital Signs 04/08/25 11:50 Height 5 ft 2 in Weight 172 lb BMI 31.5 BP 102/60 Blood Pressure Location Lt brachial Position Sitting Pulse 92 Pulse Source Pulse Oximeter Temp 98.6 F Temp Source Oral Pulse Oximetry (%) 99 Oxygen Delivery Method Room Air Intake Visit Reasons: EP Fever, cough, exposed to covid Intake Note: presents with non productive cough, fevers at home, headache- recent exposure to covid at work Patient Tobacco Use Status: Never used Tobacco Allergies No Known Allergies Allergy (Verified 04/08/25 11:54) Do you need a note to return to daycare/school/sports/work: No HPI HPI Comments History of Present Illness Details History - The patient is a 30-year-old female pr esenting with fever, cough, and body aches. - She states that she was exposed to cov id at work. - Fever onset was this morning, with a p receding cough. - Reports of body aches and fluctuating temperature sensations. - Denies history of asthma or tobacco us e. - Self-medicating with ibuprofen. - She denies CP, SOB, abd pain, n/v/d. Physical Exam General: Cooperative, healthy appearing, comfortable and no acute distress Orientation/consciousness: Patient oriented x3 Limitations: No limitations Head: Normal to inspection Ears: Hearing grossly normal bilaterally, external ears normal and TM's normal bilaterally Nose: Normal external nose present, normal nares present, and no nasal discharge present. Face and sinus: Sinuses nontender to palpation. Mouth: Normal oral and palatal mucosa present and moist mucous membranes noted. Throat: Tonsils normal. Uvula is midline. Posterior oropharynx with erythema and no exudates. Eyes: Appearance normal, both eyes and all related structures Neck: Normal visual inspection, full ROM. No lymphadenopathy noted. Respiratory: Clear to auscultation bilaterally. Normal respiratory effort, able to speak in complete sentences. No respiratory distress, not tachypneic, no tripod positioning and no use of accessory muscles. Cardiovascular: Regular rate and rhythm. Normal S1 and S2 Skin: No rashes or lesions noted Patient was informed and verbally consented to the use of an ambient scribe for clinic note documentation during this visit [facility] Medical History Physical exam Hypovitaminosis D B12 deficiency Anxiety Surgical History No pertinent past surgical history Family History Father No problems noted. Mother Hypertension Social History Housing: Apartment Alcohol intake: current Alcohol intake frequency: a few times a month Alcohol type: other Patient Tobacco Use Status: Never used Tobacco e-Cigarette/Vaping Use: Never Used Second Hand Smoke Exposure: No service: No Current occupational status: employed Current occupational exposures/hazards: No Cognitive needs: No Hearing needs: No Vision needs: No Review of Systems Const All systems reviewed & are unremarkable except as noted in HPI and below Physical Exam Vital Signs: Last Vital Signs Temp 98.6 F 04/08/25 11:50 Pulse 92 04/08/25 11:50 BP 102/60 04/08/25 11:50 Pulse Ox 99 04/08/25 11:50 Oxygen Delivery Method Room Air 04/08/25 11:50 BMI result Body Mass Index 31.5 Assessment & Plan Assessment & Plan (1) URI with cough and congestion: Code(s): J06.9 - Acute upper respiratory infection, unspecified Plan Most likely URI vs covid vs flu vs RSV Rapid was negative Plan - COVID-19 test ordered to rule out viral infection. - Prescribed cough medicine for symptomatic relief. - Patient advised to rest and monitor symptoms, with follow-up planned based on test results. - VSS, pt well appearing Orders: Orders SARS-CoV2/FLU/RSV Today R09.89 - Other specified symptoms and signs involving the circulatory and respiratory systems Medications: New benzonatate 100 mg PO bid-tid PRN 21 caps 0RF Cough 7 days Coding Level of Care Code Est Pt Level 3 (30827) Diagnoses URI with cough and congestion J06.9
--- OUTSIDE RECORDS SUMMARY | 2025-04-08 12:13 | XMS_ITS | Clinical Summary ---
Author Organization Former[facility] Address [address] [place] [phone] Phone Care Team Providers Care Edge Kitter Name Role Phone Elin Bautista MD Primary Care Provid er Allergies No known active allergies Medications amitriptyline (ELAVIL) 10 MG tablet Take 10 mg by mouth nightly at bedtime. 09/20/2024 Active hydrOXYzine (ATARAX) 25 MG tablet Take 25 mg by mouth nightly at bedtime. Active etonogestreL (NEXPLANON) 68 mg Impl Inject 68 mg into the skin Once every 3 years. 01/21/2024 Active Family History Relation Status Comments Mother Alive Social History Tobacco Use Types Packs/Day Years Used Date Smoking Tobacco: Never Smokeless Tobacco: Never Tobacco Cessation:Counseling Given: Not Answered Alcohol Use Standard Drinks/Week Comments Yes 0 (1 standard drink = 0.6 oz pur e alcohol) Education Answer Date Recorded Are you interested in more education? Not on valentina e 12/29/2022 Are you concerned about learning? Not on file 12/29/2022 No 12/29/2022 No 12/29/2022 Digital Access Answer Date Recorded No 01/29/2023 No 01/29/2023 Reliable internet access at home? Not on file 01/29/2023 Device with a working camera? Not on file Comments No Sex and Gender Information Value Date Recorded Sex Assigned at Female 07/30/2022 12:25 PM EST Legal Sex Female 11:40 AM EST Gender Identity Female 07/30/2022 12:25 PM EST Sexual Orientation Straight 07/30/2022 12 :25 PM EST Last Filed Vital Signs Vital Sign Reading Time Taken Comments Blood Pressure 124/78 11/26/2024 9:43 AM EDT Pulse 85 07/30/2022 12:23 PM EST Temperature 36.5 C (97.7 F) 07/30/2022 12:23 PM EST Respiratory Rate 16 07/30/2022 12:23 PM EST Oxygen Saturation 99% 07/30/2022 12:23 PM EST Inhaled Oxygen Concentration - - Weight 77.6 kg (171 lb) 11/26/2024 9:43 AM EDT Height 157.5 cm (5' 2 ) 11/26/2024 9:43 AM EDT Body Mass Index 31.28 11/26/2024 9:43 AM EDT Plan of Treatment Health Maintenance Due Date Last Done Comments DEPRESSION SCREENING 2008 HEPATITIS C SCREENING 02/27/2014 HIV ONE-TIME SCREENING (18-6 5 YEARS) 02/27/2014 PAP SMEAR 02/27/2017 Adult Td,Tdap Booster 01/07/2023 01/07/2013 COVID-19 VACCINE (3 - 2023-2 5 season) 2024 07/19/2021, 06/28/2021 SMOKING STATUS SCREENING (On ce After 26 Yrs) Completed 11/26/2024 HEPATITIS A VACCINES Aged Out No long er eligible based on patient's age to complete this topic HIB VACCINES Aged Out No longer eligi ble based on patient's age to complete this topic MENINGOCOCCAL VACCINES (ACWY) Aged Out No longer eligible based on patient's age to complete this topic MENINGOCOCCAL VACCINES (B) Aged Out N o longer eligible based on patient's age to complete this topic PNEUMOCOCCAL VACCINES (0-49 years) Aged Out No longer eligible b ased on patient's age to complete this topic Medical Devices Not on file Insurance [facility] Care Teams Edge Kitter Relationship Specialty Start Date End Date Elin Bautista MD [address] [place] [phone] PCP - General Internal Medicine 11/18/24 Additional Source Comments The information contained in this document represents components of the legal health record. It is not the complete legal health record.[facility]
== END 2025-04-08 12:22 | disposition home or self-care (01) ==
PROVIDERS: PCP Internal Medicine; Visit Provider Physician Assistant Medical
DX: J06.9 Acute upper respiratory infection, unspecified (principal)

== ENCOUNTER 2025-04-08 11:35 | Outpatient (REF) | payer OTHER, SELFPAY ==
[2025-04-08 14:23] LABS: Resp Syncy Virus RNA Qual PCR NEGATIVE (Negative); SARS COV2 PCR INHOUSE NEGATIVE (Negative)
== END 2025-04-08 11:36 | disposition home or self-care (01) ==
LOC: HO.LNP 11:35
PROVIDERS: PCP Internal Medicine; Visit Provider Physician Assistant Medical
DX: R09.89 Other specified symptoms and signs involving the circulatory and respiratory systems (principal); J06.9 Acute upper respiratory infection, unspecified; R05.9 Cough, unspecified; R50.9 Fever, unspecified; R52 Pain, unspecified
CPT/HCPCS: 87637; 99212

== ENCOUNTER 2025-06-30 10:40 | Outpatient (REF) | payer OTHER, SELFPAY ==
--- OUTSIDE RECORDS SUMMARY | 2012-12-08 10:30 | XMS_ITS | Continuity of Care Document ---
Author Organization [facility] Address [address], [address] [place] [address] Phone Care Team Providers Care Care Attendant Name Role Phone Tish Alonso MD Unavailable Unavailable Allergies, Adverse Reactions, Alerts Substance Reaction Status Criticality No Known allergies Advance Directives Directive Yes / No Effective Date File Name Resuscitation Not Answered N/A N/A Life Support Not Answered N/A N/A Intubation Not Answered N/A N/A Antibiotics Not Answered N/A N/A IV Fluid Support Not Answered N/A N/A Tube Feed Not Answered N/A N/A Other Directive N/A N/A WARNING:The information contained in this section is historical and is provided for information only and does not constitute a legal document or any assurance that the information is still accurate. Please verify the information with the haque of the legal document before using it for clinical purposes. Encounters Encounter Description Practice Location Reason(s) For Visit Diagnoses Date Provider [facility], [address], [address], [place], [id number], [place] tel:[phone] absent menses (chief complaint) No Information 2012 [address] Winston. [address], [address], [place], [id number], [place]. tel:[phone] Family History Family Member Type Diagnosis Age At Onset No Information Payers Payer name Insurance type Covered green party ID Authoriza tion(s) No Information Social History Type Description Quantity Date Captured Comments Alcohol Use Details beer Caffeine Use Details Unknown Tobacco Use Status No Information Smoking Status No Information Smoking Tobacco Use Details Cigarette: No Details Available Cigarette: 6 Packs per day Sex Female Vital Signs Date / Time: Height Weight BMI Pulse Rate Blood Pressure Temperature Respiratory Rate Body Surface Area Head Circumference Head Circ. Percentile Wt./Juan Pablo. Percentile BMI percentile Pulse Ox Inhaled Ox 3:10 PM 67.00 in 316.00 lbs 49.4 9 kg/m eter (2) 114/78 mm[Hg] 99 Chief Complaint And Reason For Visit From encounter dated '12/08/2012 14:30'. absent menses (chief complaint) History Of Present Illness Encounter Date Complaint History Of Prese nt Illness No Information Instructions Date Instruction Additional Infor mation No Information Assessments Type Assessment Date No Information
--- OUTSIDE RECORDS SUMMARY | 2015-08-19 08:30 | XMS_ITS | Continuity of Care Document ---
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 [address], [address], [place], [id number], [place]. tel:[phone] Referring Provider: [place], [address]. Family History Family Member Type Diagnosis Age At Onset No Information Payers Payer name Insurance type Covered alliance party ID Authoriza tion(s) [facility] Social History Type Description Quantity Date Captured Comments Sex Female Smoking Status No Information Chief Complaint And Reason For Visit No Information History Of Present Illness Encounter Date Complaint History Of Prese nt Illness No Information Instructions Date Instruction Additional Infor mation No Information Assessments Type Assessment Date No Information
[2025-06-30 12:28] LABS: Alanine Aminotransferase 36 U/L (0-31); Albumin Level 4.4 g/dL (3.5-5.0); Alkaline Phosphatase 83 U/L (39-117); Anion Gap 10 (12-20); Aspartate Amino Transferase 26 U/L (5-31); Blood Urea Nitrogen 12 mg/dL (9-16); Calcium 9.6 mg/dL (8.4-10.2); Carbon Dioxide 24 mmol/L (22-29); Chloride 108 mmol/L (96-108); Estimated Glomerular Filt Rate > 60; Potassium 4.0 mmol/L (3.3-5.1); Sodium 138 mmol/L (135-145); Total Protein 8.1 g/dL (6.5-8.0)
[2025-06-30 12:50] LABS: Thyroid Stimulating Hormone 2.85 uIU/mL (0.32-4.0)
--- OUTSIDE RECORDS SUMMARY | 2025-06-30 13:20 | XMS_ITS | Clinical Summary ---
Author Organization [employer] [facility] Address [address] [facility] [address] [place] [phone] Phone Care Team Providers Care Script Developer Name Role Phone Elin Bautista MD Primary [...] 11/26/2024 9:43 AM EDT Plan of Treatment Upcoming Encounters Date Type Department Care Team (Late st Contact Info) Description 06/30/2025 2:30 PM EDT Office Visit [facility] [address] [place] [address] Ena Bowser MD [address] [facility], [address] [place] [address] [email or web address] Health Maintenance Due Date Last Done Comments DEPRESSION SCREENING 2008 HEPATITIS C SCREENING 02/27/2014 HIV ONE-TIME SCREENING (18-6 5 YEARS) 02/27/2014 PAP SMEAR 02/27/2017 Adult Td,Tdap Booster 01/07/2023 01/07/2013 INFLUENZA VACCINE (#1) 2025 COVID-19 VACCINE (3 - 2024-2 6 season) 2025 07/19/2021, 06/28/2021 SMOKING STATUS SCREENING (On ce [...] topic Medical Devices Not on file Insurance [facility] Care Teams Script Developer Relationship Specialty Start Date End Date Elin Bautista MD [address] [place] [phone] PCP - General Internal Medicine 11/18/24 Additional Source Comments The information contained in this document represents components of the legal health record. It is not the complete legal health record.[facility]
== END 2025-06-30 10:41 | disposition home or self-care (01) ==
LOC: HO.LAB 10:40
PROVIDERS: PCP Internal Medicine; Visit Provider Internal Medicine
DX: Z00.00 Encounter for general adult medical examination without abnormal findings (principal); E66.9 Obesity, unspecified
CPT/HCPCS: 36415; 80053; 84443